=== PATIENT | male | born 1945 | race Caucasian/White ===

== ENCOUNTER 2021-04-29 09:47 | Inpatient (IN) | payer BC, MEDICARE ==
[~2021-04-29] VITALS: Ht 172.7 cm; Wt 170.1 kg
[2021-04-29] MEDS ORDERED: DEXAMETHASONE SOD PHOSPHATE 4 MG INJ IV ONE (10:30)
[2021-04-29 10:38] LABS: CARBON DIOXIDE 28 mmol/L (21-32); CHLORIDE 100 mmol/L (98-107); CREATININE 1.7 mg/dL (0.6-1.3); GLUCOSE 89 mg/dL (74-106); POTASSIUM 3.3 mmol/L (3.5-5.1); UREA NITROGEN, BLOOD 42 mg/dL (7-18)
[2021-04-29] MEDS ORDERED: DEXAMETHASONE SOD PHOSPHATE 10 MG INJ ONE (10:40)
[2021-04-29 10:44] LABS: ALANINE AMINOTRANSFERASE 38 U/L (16-63); ALKALINE PHOSPHATASE 57 U/L (50-136); ASPARTATE AMINOTRANSFERASE 42 U/L (15-37); BILIRUBIN,DIRECT 0.3 mg/dL (0.0-0.2); BILIRUBIN,TOTAL 0.6 mg/dL (0.2-1.0); HEMATOCRIT 34.2 % (36.7-47.1); MEAN CORPUSCULAR HEMOGLOBIN 29.1 uug (23.8-33.4); MEAN CORPUSCULAR VOLUME 86.8 fL (73.0-96.2); PLATELET COUNT (AUTO) 176 K/uL (152-348); TOTAL PROTEIN, SERUM 7.8 g/dL (6.4-8.2)
--- NOTE | 2021-04-29 11:00 | NUR ---
First contact with patient. Received pt in [facility] in room 5A, pt on room air with O2 sat 84%, placed on O2 4L via N/C with O2 sat up to 98%, BP 115/63, HR 61 (SR), RR 25.
--- NOTE | 2021-04-29 13:00 | NUR ---
Per pt to be admitted to [facility], no beds available. Pt repositioned in [facility] for comfort, remains on O2 4L via NC. No acute distress noted at this time.
--- NOTE | 2021-04-29 13:30 | NUR ---
Pt sitting in gurney and eating lunch, NAD noted at this time.
--- NOTE | 2021-04-29 17:30 | NUR ---
Pt eating dinner, NAD noted at this time.
--- NOTE | 2021-04-29 19:00 | NUR ---
Hands off report given to JOHN Baum.
[2021-04-29] MEDS ORDERED: CEFTRIAXONE 1 G in IV DEXTROSE 5% 50 ML IV SCH (19:45)
[2021-04-29] MEDS ORDERED: AZITHROMYCIN 250 MG TABLET PO ONE (19:45)
--- NOTE | 2021-04-29 20:08 | NUR ---
Called pharmacy for remdesivir, stated they need to get approval before brinign to ER
[2021-04-29] MEDS ORDERED: CEFTRIAXONE /D5W 50ML IVPB **ER PYXIS IV ONE (20:12)
[2021-04-29] MEDS ORDERED: TEMAZEPAM 15 MG CAPSULE PO PRN (21:15)
[2021-04-29] MEDS ORDERED: ONDANSETRON 4 MG/2 ML VIAL IV PRN (21:15)
[2021-04-29] MEDS ORDERED: ACETAMINOPHEN 325 MG TABLET PO PRN (21:15)
[2021-04-29] MEDS ORDERED: HYDROCODONE/APAP 5-325MG TABLET PO PRN (21:15)
[2021-04-29] MEDS ORDERED: ALBUTEROL SULFATE 8 GM HFA.AER.AD IH PRN (21:15)
--- NOTE | 2021-04-29 23:15 | NUR ---
pt placed in hospital bed, resting in bed, no distress noted
--- NOTE | 2021-04-30 01:53 | NUR ---
Pt sitting on side of the bed, no distress noted
--- NOTE | 2021-04-30 04:01 | NUR ---
pt refusing bp at this time
[2021-04-30 06:24] LABS: HEMATOCRIT 34.3 % (36.7-47.1); MEAN CORPUSCULAR HEMOGLOBIN 29.1 uug (23.8-33.4); MEAN CORPUSCULAR VOLUME 86.8 fL (73.0-96.2); PLATELET COUNT (AUTO) 178 K/uL (152-348)
[2021-04-30] MEDS ORDERED: LIOT25TA13 PO (06:38)
[2021-04-30] MEDS ORDERED: LEVO25TA2 PO (06:38)
[2021-04-30] MEDS: PANTOPRAZOLE SODIUM 40 MG TABLET.DR PO SCH (06:39)
[2021-04-30] MEDS ORDERED: PANTOPRAZOLE SODIUM 40 MG TABLET.DR PO ONE (06:46)
[2021-04-30 07:33] LABS: BILIRUBIN,TOTAL 0.6 mg/dL (0.2-1.0); CREATININE 1.3 mg/dL (0.6-1.3); MAGNESIUM 2.3 mg/dL (1.8-2.4); PHOSPHOROUS 4.2 mg/dL (2.5-4.9); POTASSIUM 3.1 mmol/L (3.5-5.1); TOTAL PROTEIN, SERUM 7.9 g/dL (6.4-8.2)
--- NOTE | 2021-04-30 07:40 | NUR ---
PATIENT IS AWAKE AND ALERT. JUSTIN AND I MOVED HIM UP IN BED AND PLACED A CLEAN WATERPROOF PAD UNDER HIM. HE IS ON OXYGEN VIA N/C AT 4L WHICH PATIENT STATES HE HAS HAD HOME (O2).
[2021-04-30] MEDS ORDERED: POTASSIUM CHLORIDE 20 MEQ TAB.PRT.SR PO ONE (08:45)
[2021-04-30] MEDS ORDERED: DEXAMETHASONE 5 MG/5 ML LIQUID UDC PO SCH (09:00)
[2021-04-30] MEDS ORDERED: CEFTRIAXONE 2 G in IV DEXTROSE 5% 100 ML IV SCH (09:00)
[2021-04-30] MEDS: DEXAMETHASONE 4 MG TABLET PO SCH (09:06)
[2021-04-30] MEDS: ENOXAPARIN SODIUM 40 MG/0.4 ML DISP.SYRIN SQ SCH (09:07)
[2021-04-30] MEDS ORDERED: ENOXAPARIN SODIUM 40 MG/0.4 ML DISP.SYRIN SQ ONE (09:08)
[2021-04-30] MEDS ORDERED: POTASSIUM CHLORIDE 20 MEQ TAB.PRT.SR ONE (09:08)
[2021-04-30] MEDS ORDERED: DEXAMETHASONE 4 MG TABLET ONE (09:08)
--- NOTE | 2021-04-30 09:33 | NUR ---
We changed patient's sheets and he is stting up eating breakfast with no complaints. I asked him to give us a list of his medications and he said "[facility] has my medication list, Ivett asked them to send it".
[2021-04-30] MEDS ORDERED: CEFTRIAXONE /D5W 50ML IVPB **ER PYXIS IV ONE (10:29)
[2021-04-30] MEDS ORDERED: CEFTRIAXONE 1 G VIAL ONE (10:30)
[2021-04-30] MEDS ORDERED: REMDESIVIR (CHARGED) 200 MG in IV NORMAL SALINE 210 ML IV ONE (11:00)
--- NOTE | 2021-04-30 11:00 | NUR ---
Rocephin IV completed in one hour at 1100
--- NOTE | 2021-04-30 11:30 | NUR ---
Patient states he consents to receive Remdesivir and has read the info sheet I gave him from Pharmacy.
[2021-04-30] MEDS ORDERED: CALC0.253 PO (11:44)
[2021-04-30] MEDS ORDERED: CARV12.5 PO (11:44)
[2021-04-30] MEDS ORDERED: COLC0.6C3 PO (11:45)
[2021-04-30] MEDS ORDERED: FURO-151 PO (11:45)
[2021-04-30] MEDS ORDERED: GABA300C PO (11:46)
[2021-04-30] MEDS ORDERED: GLIM2TAB31 PO (11:46)
[2021-04-30] MEDS ORDERED: LEVO200T9 PO (11:47)
[2021-04-30] MEDS ORDERED: LIOT25TA7 PO (11:47)
[2021-04-30] MEDS ORDERED: METF-495 PO (11:48)
[2021-04-30] MEDS ORDERED: LISI40TA13 PO (11:48)
[2021-04-30] MEDS ORDERED: NIFE-35 PO (11:50)
[2021-04-30] MEDS ORDERED: SIMV-46 PO (11:50)
--- NOTE | 2021-04-30 11:51 | NUR ---
I received his med list from [facility] and entered each one. i will now notifiy Dr Mcdaniel to order them for his stay
--- NOTE | 2021-04-30 12:27 | NUR ---
Patient is sitting up eating lunch
--- NOTE | 2021-04-30 13:11 | NUR ---
Remdesevir is completed. VSS
[2021-04-30] MEDS ORDERED: METF-442 PO (15:42)
--- NOTE | 2021-04-30 15:50 | NUR ---
Patient is sitting up eating and drinking juice with no complaints. He had a BM and urianted with no issues. He is coughing intermittently. He states he "feels much better than yesterday"
--- NOTE | 2021-04-30 18:36 | NUR ---
Patient is sitting up eating dinner. He is aware of pending admission
--- NOTE | 2021-04-30 19:05 | NUR ---
Thorough and complete report recieved from HARRY Peraza using SBAR method. Pt is all set to be transfered upstairs to room 318. Pt is stable and doing well VSS, pt is independent, follows commands and answers question, AAOx4, pt is currently sitting up on gurney and awaiting transport. 3rd floor called to give report however, nurse was already taking report for another admission, hence Ashley told me to hold the pt until they verify if the room has been cleaned. She said she will call me when they are ready to accept report. Pt shows no s/sx of distress. Pt denies any pain, sob, dizziness, n/v or discomfort.
--- NOTE | 2021-04-30 19:30 | NUR ---
Hand off report given to Bisi LOPEZ
[2021-04-30] MEDS ORDERED: AZITHROMYCIN 250 MG TABLET PO ONE (19:45)
--- NOTE | 2021-04-30 20:14 | NUR ---
Ashley called and said that room with being cleaned now and that she will call me when it is ready for the pt. Pt given one cup of ice water per request. VSS, 100% RA
--- NOTE | 2021-04-30 21:00 | NUR ---
RECEIVED REPORT FROM LAURYN CAMPBELL RN.
--- NOTE | 2021-04-30 21:25 | NUR ---
Report given to returned telephone equipment appraiser using SBAR method. Pt is doing well, VSS, pt was able to get up and walked a few steps to the wc. Pt can kimani wt on legs but has some difficulty walking and moves really slowly. BG checked just before transport to rm 318. B, no coverage needed. vial of Humalin R given to returned telephone equipment appraiser and told about difficulty ambulating.
--- NOTE | 2021-04-30 21:30 | NUR ---
Received patient via wheelchair. Admitted to room 318-telemetry with diagnosis of COVID. Under care of Dr. Mcdaniel. Patient is awake, alert and oriented x4, appears to be unkempt. Patient is ambulatory with assistance, states he uses a walker at home. Established nurse-patient rapport. Oriented patient to room, bed and call light button. On tele monitor, showing sinus rhythm. On 4L O2 saturating at 97%. Patient denies SOB, chest pain or dizziness. Skin issues noted and place in chart. Wound care consult ordered. Safety measures initiated. Will continue to monitor.
[2021-04-30 22:00] VITALS: BP 122/54
[2021-05-01] VITALS: BP 126/64
[2021-05-01 05:30] VITALS: BP 122/62
[2021-05-01] MEDS: PANTOPRAZOLE SODIUM 40 MG TABLET.DR PO SCH (06:06)
--- NOTE | 2021-05-01 06:16 | NUR ---
Patient slept intermittently through the night. Complained of not being able to sleep, non-pharmacological interventions were recommended to patient, however, patient requested for sleeping medication. Temazepam was given as ordered, insomnia resolved. On telemonitor, showing sinus rhythm with episodes of 1st degree block. on 4L O2 via NC, saturating at 98%. Complaint with medications. All needs were attended to and met. Will endorse to day shift.
[2021-05-01 06:40] LABS: HEMATOCRIT 34.6 % (36.7-47.1); MEAN CORPUSCULAR HEMOGLOBIN 28.7 uug (23.8-33.4); MEAN CORPUSCULAR VOLUME 86.2 fL (73.0-96.2); PLATELET COUNT (AUTO) 204 K/uL (152-348)
[2021-05-01 06:58] LABS: BILIRUBIN,DIRECT 0.3 mg/dL (0.0-0.2); BILIRUBIN,TOTAL 0.4 mg/dL (0.2-1.0); CREATININE 1.2 mg/dL (0.6-1.3); POTASSIUM 3.7 mmol/L (3.5-5.1); TOTAL PROTEIN, SERUM 7.8 g/dL (6.4-8.2)
[2021-05-01] MEDS: DEXAMETHASONE 4 MG TABLET PO SCH (08:56)
[2021-05-01] MEDS: ENOXAPARIN SODIUM 40 MG/0.4 ML DISP.SYRIN SQ SCH (08:58)
[2021-05-01 09:00] VITALS: BP 117/56
[2021-05-01] MEDS: REMDESIVIR (CHARGED) 100 MG in IV NORMAL SALINE 100 ML IV SCH (11:10)
[2021-05-01 12:00] VITALS: BP 126/59
--- NOTE | 2021-05-01 14:17 | NUR ---
Pt is a/o x 4, ambulatory with assist and walker to chair and bathroom. Pt was on 4L NC but removed, saturates 94% on room air at rest and educated to use oxygen when feeling exacerbated. Pt has had 2 BMs, uses urinal at bedside. Comfort measures provided, call light within reach, will continue to monitor.
[2021-05-01 16:00] VITALS: BP 132/41
--- NOTE | 2021-05-02 05:54 | NUR ---
Slept intermittently. Able to make needs known. Denies discomfort at this time. Denies SOB. Titrated to 3L. Pt not always compliant with nasal cannula, educated on importance of oxygen. IV site intact. No other issues or concerns at this time.
[2021-05-02] MEDS: PANTOPRAZOLE SODIUM 40 MG TABLET.DR PO SCH (06:34)
[2021-05-02 08:43] LABS: HEMATOCRIT 36.5 % (36.7-47.1); MEAN CORPUSCULAR HEMOGLOBIN 28.4 uug (23.8-33.4); MEAN CORPUSCULAR VOLUME 87.2 fL (73.0-96.2); PLATELET COUNT (AUTO) 256 K/uL (152-348)
[2021-05-02 09:25] LABS: BILIRUBIN,DIRECT 0.2 mg/dL (0.0-0.2); BILIRUBIN,TOTAL 0.5 mg/dL (0.2-1.0); CREATININE 1.2 mg/dL (0.6-1.3); MAGNESIUM 2.9 mg/dL (1.8-2.4); PHOSPHOROUS 3.7 mg/dL (2.5-4.9); POTASSIUM 4.2 mmol/L (3.5-5.1); TOTAL PROTEIN, SERUM 8.2 g/dL (6.4-8.2)
[2021-05-02 09:33] LABS: THYROID STIMULATING HORMONE 0.72 mIU/mL (0.358-3.740)
--- NOTE | 2021-05-02 09:46 | NUR ---
WOUND CARE CONSULT: REVIEWED CHART, NURSING DOCUMENTATION AND PHOTOS WHICH INDICATE SOME SKIN DISCOLORATION/LESIONS AND REDNESS/RASH TO ABDOMINAL/GROIN FOLDS, PRESENT ON ADMISSION. RECOMMENDATIONS MADE FOR SKIN PROTECTION. DISCUSSED WITH NURSING STAFF.MD IN AGREEMENT WITH PLAN OF CARE.
[2021-05-02] MEDS: DEXAMETHASONE 4 MG TABLET PO SCH (10:09)
[2021-05-02] MEDS: ENOXAPARIN SODIUM 40 MG/0.4 ML DISP.SYRIN SQ SCH (10:10)
[2021-05-02] MEDS: ENSURE ENLIVE (VAN) 240 ML LIQUID PO SCH (10:10)
[2021-05-02] MEDS: REMDESIVIR (CHARGED) 100 MG in IV NORMAL SALINE 100 ML IV SCH (11:08)
--- NOTE | 2021-05-02 11:15 | NUR ---
Patient is alert, oriented x 4, not in any form of distress. he is ambulatory with walker with assist to the chair and bedside commode. He denies any pain or discomfort. Titrated oxygen to 1LPM via NC and patient tolerated well O2 sat 96%, no complain of dyspnea or any discomfort. Assisted with his needs. Call light and frequently used items placed within patient's reach.
[2021-05-02 11:51] VITALS: BP 98/53
[2021-05-02] MEDS: CLOTRIMAZOLE 1% CREAM 30 GM TUBE TOP SCH (16:08)
[2021-05-02 16:51] VITALS: BP 133/68
[2021-05-02] MEDS: Z GUARD REMEDY PASTE 57 GM TUBE TOP SCH (18:09)
[2021-05-02] MEDS ORDERED: IV D5W 1000ML 1,000 ML IV ONE (19:30)
[2021-05-02 20:55] VITALS: BP 129/56
[2021-05-03 04:00] VITALS: BP 135/54
[2021-05-03] MEDS: PANTOPRAZOLE SODIUM 40 MG TABLET.DR PO SCH (06:18)
--- NOTE | 2021-05-03 06:55 | NUR ---
Slept throughout the night. Denies pain or SOB. Titrated to RA, tolerating well. No s/s of distress.
[2021-05-03 07:34] LABS: HEMATOCRIT 33.2 % (36.7-47.1); MEAN CORPUSCULAR HEMOGLOBIN 29.1 uug (23.8-33.4); MEAN CORPUSCULAR VOLUME 86.8 fL (73.0-96.2); PLATELET COUNT (AUTO) 211 K/uL (152-348)
[2021-05-03 07:59] LABS: BILIRUBIN,DIRECT 0.2 mg/dL (0.0-0.2); BILIRUBIN,TOTAL 0.4 mg/dL (0.2-1.0); CREATININE 1.3 mg/dL (0.6-1.3); POTASSIUM 4.1 mmol/L (3.5-5.1); TOTAL PROTEIN, SERUM 7.4 g/dL (6.4-8.2)
[2021-05-03] MEDS: DEXAMETHASONE 4 MG TABLET PO SCH (08:15)
[2021-05-03] MEDS: ENSURE ENLIVE (VAN) 240 ML LIQUID PO SCH (08:16)
[2021-05-03] MEDS: CLOTRIMAZOLE 1% CREAM 30 GM TUBE TOP SCH (08:16)
[2021-05-03] MEDS: Z GUARD REMEDY PASTE 57 GM TUBE TOP SCH (08:18)
[2021-05-03] MEDS: ENOXAPARIN SODIUM 40 MG/0.4 ML DISP.SYRIN SQ SCH (09:30)
[2021-05-03] MEDS ORDERED: COLCHICINE 0.6 MG TABLET PO PRN (10:00)
[2021-05-03] MEDS ORDERED: Medication Not On Formulary EA (Colchicine 0.6 MG) PO SCH (10:00)
[2021-05-03] MEDS ORDERED: ACET325T53 PO (11:11)
[2021-05-03] MEDS ORDERED: MULT-594 PO (11:11)
[2021-05-03] MEDS ORDERED: GLIM2TAB31 PO (11:11)
[2021-05-03] MEDS ORDERED: GABA300C PO (11:11)
[2021-05-03] MEDS: REMDESIVIR (CHARGED) 100 MG in IV NORMAL SALINE 100 ML IV SCH (11:11)
[2021-05-03] MEDS ORDERED: CARV3.12 PO (11:11)
[2021-05-03] MEDS ORDERED: SIMV10TA98 PO (11:11)
[2021-05-03] MEDS ORDERED: LISI10TA29 PO (11:11)
[2021-05-03] MEDS ORDERED: FAMO-132 PO (11:11)
[2021-05-03] MEDS ORDERED: FURO-151 PO (11:11)
[2021-05-03] MEDS ORDERED: METH4TAB3 PO (11:11)
[2021-05-03] MEDS ORDERED: ALBU8.5H8 INH (11:11)
[2021-05-03] MEDS ORDERED: ASPI-618 PO (11:12)
[2021-05-03 11:37] VITALS: BP 119/68
--- NOTE | 2021-05-03 16:06 | NUR ---
Patient discharged to home. Patient AOx4. On room air. No signs of acute distress. Patient denied pain/ discomfort. Patient denied SOB/ . Patient insisted on being discharged today despite informing him case management are working on transportation. Spoke with the patient the risks of going home in his wheelchair and patient verbalized understanding and insisted on going home. Dr. Allen informed. Discharge instructions given to the patient and patient verbalized understanding. Belongings accounted for. IV access removed. ID armband removed. Patient left hospital using own electric wheelchair, assisted by KAREL Hua.
[2021-05-03] MEDS ORDERED: GLIMEPIRIDE 2 MG TABLET PO SCH (17:00)
[2021-05-03] MEDS ORDERED: SIMVASTATIN 20 MG TABLET PO SCH (21:00)
[2021-05-04] MEDS ORDERED: LIOTHYRONINE SODIUM 25 MCG TABLET PO SCH (07:00)
[2021-05-04] MEDS ORDERED: LEVOTHYROXINE SODIUM 200 MCG TABLET PO SCH (07:00)
[2021-05-04] MEDS ORDERED: CALCITRIOL 0.25 MCG CAPSULE PO SCH (09:00)
[2021-05-04] MEDS ORDERED: GABAPENTIN 300 MG CAPSULE PO SCH (09:00)
[2021-05-04] MEDS ORDERED: NIFEdipine XL 30 MG TABSR PO SCH (09:00)
== END 2021-05-03 15:55 | disposition home or self-care (01) | DRG 177 ==
LOC: ER 09:47 → TRANSITION 21:38 → TELE-TD3 04-30 17:42 → TELE3 04-30 20:40 → MEDSURG3 05-02 11:30
PROVIDERS: ADMIT Internal Medicine; ATTEND Internal Medicine
PROC: XW033E5 Introduction of Remdesivir Anti-infective into Peripheral Vein, Percutaneous Approach, New Technology Group 5 (ICD-10-PCS; principal; 2021-04-30)
DX: U07.1 COVID-19 (principal); J12.82 Pneumonia due to coronavirus disease 2019; J96.01 Acute respiratory failure with hypoxia; I50.33 Acute on chronic diastolic (congestive) heart failure; N17.0 Acute kidney failure with tubular necrosis; J15.9 Unspecified bacterial pneumonia; Z68.43 Body mass index [BMI] 50.0-59.9, adult; D68.69 Other thrombophilia; E87.0 Hyperosmolality and hypernatremia; E66.01 Morbid (severe) obesity due to excess calories; D64.9 Anemia, unspecified; I11.0 Hypertensive heart disease with heart failure; I25.10 Atherosclerotic heart disease of native coronary artery without angina pectoris; M17.12 Unilateral primary osteoarthritis, left knee; Z79.4 Long term (current) use of insulin; Z90.49 Acquired absence of other specified parts of digestive tract; E11.9 Type 2 diabetes mellitus without complications; E87.6 Hypokalemia; R53.1 Weakness; Z74.09 Other reduced mobility; E03.9 Hypothyroidism, unspecified; Z79.84 Long term (current) use of oral hypoglycemic drugs; E86.1 Hypovolemia
CPT/HCPCS: 36415; 70030-TC; 71045; 83605; 83615; 83735; 84100; 84443; 85025; 85610; 85730; 86140; 86803; 87040; 87806; 93005; A4663; A6209; G0378; J0696; J1100; J1650; J3490; J3535; J7040; J7050; J7060; J7070; J8499; J8540; Q0144; U0003

== ENCOUNTER 2022-06-09 18:48 | Inpatient (IN) | payer BC, MEDICARE ==
[~2022-06-09] VITALS: Ht 172.7 cm; Wt 171.6 kg
[~2022-06-09 18:48] MED LIST: ACET325T53 PO; ALBU8.5H8 INH; ASPI-618 PO; BLOOD SUGAR DIAGNOSTIC 1 EACH STRIP VI SCH; CALC0.253 PO; CARV3.12 PO; FAMO-132 PO; FURO-151 PO; GABA300C PO; GLIM2TAB31 PO; LEVO200T9 PO; LIOT25TA7 PO; LISI10TA29 PO; METH4TAB3 PO; MULT-594 PO; NIFE-35 PO; SIMV10TA98 PO
[2022-06-09] MEDS ORDERED: ACETAMINOPHEN ES 500 MG TABLET PO ONE (19:15)
[2022-06-09] MEDS ORDERED: NITROGLYCERIN OINT 1 GM PACKET TP ONE ×2 (19:15→19:41)
[2022-06-09] MEDS ORDERED: levoFLOXacin 750 MG/D5W 150 ML PIGGYBACK IV ONE (19:30)
[2022-06-09] MEDS ORDERED: APIX5TAB PO (19:32)
[2022-06-09] MEDS ORDERED: GLIM2TAB31 PO (19:32)
[2022-06-09] MEDS ORDERED: METF-442 PO (19:32)
[2022-06-09 19:38] LABS: HEMATOCRIT 32.9 % (36.7-47.1); MEAN CORPUSCULAR HEMOGLOBIN 24.4 uug (23.8-33.4); PLATELET COUNT (AUTO) 140 K/uL (152-348)
[2022-06-09] MEDS ORDERED: ACETAMINOPHEN ES 500 MG TABLET ONE (19:40)
[2022-06-09] MEDS ORDERED: levoFLOXacin 750MG/D5W 150 ML IV ONE (19:41)
[2022-06-09 19:49] LABS: CARBON DIOXIDE 28 mmol/L (21-32); CHLORIDE 102 mmol/L (98-107); CREATININE 1.2 mg/dL (0.6-1.3); GLUCOSE 153 mg/dL (74-106); POTASSIUM 4.5 mmol/L (3.5-5.1); UREA NITROGEN, BLOOD 20 mg/dL (7-18)
[2022-06-09 20:02] LABS: ALANINE AMINOTRANSFERASE 19 U/L (16-63); ALKALINE PHOSPHATASE 66 U/L (50-136); ASPARTATE AMINOTRANSFERASE 12 U/L (15-37); BILIRUBIN,DIRECT 0.2 mg/dL (0.0-0.2); BILIRUBIN,TOTAL 0.7 mg/dL (0.2-1.0); TOTAL PROTEIN, SERUM 7.7 g/dL (6.4-8.2)
--- NOTE | 2022-06-09 22:13 | NUR ---
Called [facility] for panel call. MIKE Platt staffing operations manager.
[2022-06-09] MEDS ORDERED: ASPIRIN 81 MG TAB.CHEW PO ONE (22:15)
[2022-06-09] MEDS ORDERED: IV NORMAL SALINE 500 ML BAG IV ONE (22:15)
[2022-06-09] MEDS ORDERED: ASPIRIN 81 MG TAB.CHEW ONE (22:21)
[2022-06-09] MEDS ORDERED: MORPHINE SULFATE 2 MG/1 ML DISP.SYRIN IVP PRN (22:30)
[2022-06-09] MEDS ORDERED: DEXTROSE 50% 50 ML DISP.SYRIN IV PRN (22:30)
[2022-06-09] MEDS ORDERED: ONDANSETRON 4 MG/2 ML VIAL IV PRN (22:30)
[2022-06-09] MEDS ORDERED: hydrALAZINE HCL 20 MG/1 ML VIAL IV PRN (22:30)
[2022-06-09] MEDS ORDERED: ALBUTEROL SULFATE 8 GM HFA.AER.AD IH PRN (22:30)
--- NOTE | 2022-06-09 22:47 | NUR ---
Called 3rd floor for bed number stated they would call back.
--- NOTE | 2022-06-09 23:00 | NUR ---
3rd floor called and spoke to Ashley and recieved room #301-A.
--- NOTE | 2022-06-09 23:20 | NUR ---
Called third floor and gave report to Diana LOPEZ.
--- NOTE | 2022-06-09 23:45 | NUR ---
Transferred patient to thrid floor via transfer.
[2022-06-10] VITALS: BP 121/47
--- NOTE | 2022-06-10 | NUR ---
Admitted a 76 years old male with Dx of PNA. Patient AAOx4. SR with first degree AV block on tele with HR of 86/min. IV site on left AC intact and patent. Denies any pain. On O2 at 2LPM via NC in place. O2 sat at 97% upon admission. SOB with exertion noted. Morbidly obese. Routine admission care done. Plan of care initiated. Safety measure initiated and call light within reached. Continue to monitor.
--- NOTE | 2022-06-10 00:20 | NUR ---
Oswald munguia in ED - 06/10/22 at 0021 by GUICHO Patient discharged to home in stable condition. Written and verbal after care instructions given. Patient verbalizes understanding of instructions. Stressed follow up or return to ER for worsening s/s.
[2022-06-10] MEDS ORDERED: ALBUTEROL SULFATE 2.5 MG/3 ML NEBU NEB PRN ×2 (01:00→07:45)
--- NOTE | 2022-06-10 01:10 | NUR ---
Patient requesting CPAP, stated he uses CIPAP at home. Informed [employer] Aidee and obtained order for CPAP. Informed RT and will apply CPAP.
[2022-06-10] MEDS ORDERED: CEFEPIME HCL 1 G VIAL ONE (01:27)
[2022-06-10] MEDS: CEFEPIME HCL 1 G in IV DEXTROSE 5% 50 ML IV SCH ×4 (01:44→23:14)
--- NOTE | 2022-06-10 01:57 | NUR ---
Patient removed CPAP, stated that it's not fitting right, not like what he has at home. Informed patient that he can have family member bring his own CIPAP. Placed back on O2 at 2LPM via NC. In no acute distress.
[2022-06-10 04:00] VITALS: BP 104/48
[2022-06-10] MEDS: ACETAMINOPHEN 325 MG TABLET PO PRN ×2 (04:50→15:24)
[2022-06-10] MEDS: LEVOTHYROXINE SODIUM 200 MCG TABLET PO SCH (06:09)
[2022-06-10] MEDS: LIOTHYRONINE SODIUM 25 MCG TABLET PO SCH (06:16)
[2022-06-10] MEDS: BLOOD SUGAR DIAGNOSTIC 1 EACH STRIP VI SCH ×4 (06:30→21:04)
--- NOTE | 2022-06-10 06:39 | NUR ---
NO adverse effect noted from IV antibiotic. SR with 1st degree AVB on tele with Hr of 88/min. IV site on left AC remains intact and patent. O2 at 2LPM via NC in place. O2 sat at 94%. Tylenol 650mg PO and cooling measure provided for temp 100.8 orally. Latest temp 99.2 orally. Needs attended to and met. Safety measure maintained and call light within reached.
[2022-06-10 06:59] LABS: HEMATOCRIT 28.9 % (36.7-47.1); MEAN CORPUSCULAR HEMOGLOBIN 24.3 uug (23.8-33.4); MEAN CORPUSCULAR VOLUME 77.8 fL (73.0-96.2); PLATELET COUNT (AUTO) 124 K/uL (152-348)
[2022-06-10 07:22] LABS: BILIRUBIN,TOTAL 0.9 mg/dL (0.2-1.0); CREATININE 1.3 mg/dL (0.6-1.3); PHOSPHOROUS 3.2 mg/dL (2.5-4.9); POTASSIUM 3.9 mmol/L (3.5-5.1); TOTAL PROTEIN, SERUM 6.8 g/dL (6.4-8.2)
[2022-06-10] MEDS ORDERED: LISINOPRIL 10 MG TABLET PO SCH (09:00)
[2022-06-10] MEDS: GABAPENTIN 300 MG CAPSULE PO SCH ×2 (09:29→20:48)
[2022-06-10] MEDS: DOCUSATE SODIUM 100 MG CAPSULE PO SCH ×2 (09:29→17:22)
[2022-06-10] MEDS: FUROSEMIDE 40 MG TABLET PO SCH (09:29)
[2022-06-10] MEDS: ASPIRIN EC 81 MG TABLET.DR PO SCH (09:34)
[2022-06-10] MEDS: FLUTICASONE/VILANTEROL 1 EACH BLST.W.DEV INH SCH (09:35)
[2022-06-10] MEDS: CARVEDILOL 3.125 MG TABLET PO SCH ×2 (09:35→21:01)
[2022-06-10] MEDS: CALCITRIOL 0.25 MCG CAPSULE PO SCH (09:36)
--- NOTE | 2022-06-10 10:57 | NUR ---
WOUND CARE CONSULT: PT PRESENTS WITH LEFT LOWER LEG SKIN TEAR, PRESENT ON ADMISSION. DR FRANZ CALLED FOR DPM CONSULT. DISCUSSED SKIN PROTECTION WITH NURSING STAFF. PT IS ABLE TO TURN AND REPOSITION IN BED AND HE DENIES NEED FOR BARIATRIC BED. PT IS CONTINENT AT THIS TIME. MD IN AGREEMENT WITH PLAN OF CARE.
[2022-06-10 11:33] VITALS: BP 103/48
[2022-06-10] MEDS: APIXABAN 5 MG TABLET PO SCH ×2 (11:41→21:08)
[2022-06-10] MEDS: INSULIN REGULAR, HUMAN 300 UNIT/3 ML VIAL SQ PRN ×2 (12:32→21:03)
--- NOTE | 2022-06-10 14:00 | NUR ---
Cefepime 1 gram unable to administer at this time no IV line present, unable to insert peripheral line; attempted x 2. Will notify warehouser for midline insertion.
--- NOTE | 2022-06-10 15:46 | NUR ---
Patient temperature 100.0 tylenol given. Urine specimen collected as per order and sent to lab.
[2022-06-10 15:59] VITALS: BP 120/58
--- NOTE | 2022-06-10 16:50 | NUR ---
1400 dose of Cefepime 1 gram given at this time via right upper arm midline as per pharmacy recommendation.
--- NOTE | 2022-06-10 17:33 | NUR ---
Temperature at this time 99.2.
[2022-06-10 18:35] LABS: *BILIRUBIN,URIN NEGATIVE (NEGATIVE); *BLOOD, URINE NEGATIVE (NEGATIVE); *CLARITY,URINE CLEAR (CLEAR); *COLOR,URINE YELLOW (YELLOW); *KETONES,URINE TRACE (NEGATIVE); *UROBILINOGEN,URINE 0.2 E.U./dl (NORMAL); LEUKOCYTE ESTERASE ,URINE TRACE (NEGATIVE); NITRITE, URINE NEGATIVE (NEGATIVE); UGLUCOSE NEGATIVE (NEGATIVE)
[2022-06-10 18:53] LABS: *CREATININE,URINE 252.5 mg/dL (30-125); *URINE TOTAL PROTEIN RANDOM 38.8 mg/dL (<150/24HR)
[2022-06-10 20:00] VITALS: BP 117/55
[2022-06-10] MEDS: SIMVASTATIN 10 MG TABLET PO SCH (20:48)
[2022-06-10 21:03] LABS: BACTERIA,URINE FEW /HPF (NONE SEEN); MUCUS,URINE FEW /LPF (0-FEW); RBC,URINE 0-3 /HPF (0-3); SQUAMOUS EPITHELIAL CELL,UR FEW /HPF (NONE SEEN)
[2022-06-11] VITALS: BP 118/56
[2022-06-11 04:00] VITALS: BP 134/65
[2022-06-11] MEDS: CEFEPIME HCL 1 G in IV DEXTROSE 5% 50 ML IV SCH (06:31)
[2022-06-11] MEDS: LEVOTHYROXINE SODIUM 200 MCG TABLET PO SCH (06:31)
[2022-06-11] MEDS: LIOTHYRONINE SODIUM 25 MCG TABLET PO SCH (06:37)
[2022-06-11 06:39] LABS: MEAN CORPUSCULAR VOLUME 78.1 fL (73.0-96.2); PLATELET COUNT (AUTO) 126 K/uL (152-348)
[2022-06-11] MEDS: BLOOD SUGAR DIAGNOSTIC 1 EACH STRIP VI SCH ×4 (06:45→20:52)
[2022-06-11 06:51] LABS: ALANINE AMINOTRANSFERASE 14 U/L (16-63); ALKALINE PHOSPHATASE 55 U/L (50-136); ASPARTATE AMINOTRANSFERASE 9 U/L (15-37); BILIRUBIN,TOTAL 0.9 mg/dL (0.2-1.0); CARBON DIOXIDE 30 mmol/L (21-32); CHLORIDE 104 mmol/L (98-107); CREATINE KINASE, TOTAL 152 U/L (39-308); CREATININE 1.5 mg/dL (0.6-1.3); GLUCOSE 119 mg/dL (74-106); PHOSPHOROUS 3.8 mg/dL (2.5-4.9); POTASSIUM 3.8 mmol/L (3.5-5.1); UREA NITROGEN, BLOOD 22 mg/dL (7-18)
--- NOTE | 2022-06-11 07:07 | NUR ---
Patient slept well and remained stable the whole shift.
[2022-06-11] MEDS: FLUTICASONE/VILANTEROL 1 EACH BLST.W.DEV INH SCH (08:06)
[2022-06-11] MEDS: DOCUSATE SODIUM 100 MG CAPSULE PO SCH ×2 (08:06→16:07)
[2022-06-11] MEDS: FUROSEMIDE 40 MG TABLET PO SCH (08:06)
[2022-06-11] MEDS: GABAPENTIN 300 MG CAPSULE PO SCH ×2 (08:06→20:44)
[2022-06-11] MEDS: CARVEDILOL 3.125 MG TABLET PO SCH ×2 (08:07→20:45)
[2022-06-11] MEDS: APIXABAN 5 MG TABLET PO SCH ×2 (08:08→20:46)
[2022-06-11] MEDS: CALCITRIOL 0.25 MCG CAPSULE PO SCH (08:09)
[2022-06-11] MEDS: ASPIRIN EC 81 MG TABLET.DR PO SCH (08:15)
[2022-06-11 10:46] LABS: ABG PCO2 37.7 mmHg (35.0-45.0); ABG PO2 54.6 mmHg (75.0-100.0); ABG SITE RIGHT RADIAL; ABG TOTAL HEMOGLOBIN 10.1 G/dL (13.5-18.0); COHb 1.1 % (0.5-1.5); MetHb 0.3 % (0.0-1.5); O2Hb 87.1 % (94.0-97.0); VENT MODE CPAP
[2022-06-11 11:15] VITALS: BP 132/62
--- NOTE | 2022-06-11 11:16 | NUR ---
RT reported Blood gas result and PO2 is 54.6.RT placed the pt. on 3L NC oxygen. Notified Dr. Salazar.
[2022-06-11] MEDS: CEFEPIME HCL 2 G in IV DEXTROSE 5% 100 ML IV SCH (13:02)
[2022-06-11 14:56] LABS: *BILIRUBIN,URIN NEGATIVE (NEGATIVE); *BLOOD, URINE 3+ (NEGATIVE); *COLOR,URINE YELLOW (YELLOW); *KETONES,URINE NEGATIVE (NEGATIVE); *UROBILINOGEN,URINE 0.2 E.U./dl (NORMAL); LEUKOCYTE ESTERASE ,URINE 1+ (NEGATIVE); NITRITE, URINE NEGATIVE (NEGATIVE); PH,URINE 5.5 (5.0-8.0); UGLUCOSE NEGATIVE (NEGATIVE)
[2022-06-11 15:02] VITALS: BP 111/41
[2022-06-11 15:49] LABS: *CLARITY,URINE HAZY (CLEAR)
[2022-06-11 15:53] LABS: RBC,URINE 50-80 /HPF (0-3)
[2022-06-11 15:54] LABS: BACTERIA,URINE FEW /HPF (NONE SEEN); SQUAMOUS EPITHELIAL CELL,UR FEW /HPF (NONE SEEN)
[2022-06-11 15:55] LABS: COARSE GRANULAR CASTS,URINE FEW /LPF
[2022-06-11] MEDS: INSULIN REGULAR, HUMAN 300 UNIT/3 ML VIAL SQ PRN (16:17)
[2022-06-11 16:31] LABS: *CREATININE,URINE 122.2 mg/dL (30-125)
--- NOTE | 2022-06-11 16:38 | NUR ---
Pt. noted to be stable through out the shift. No c/o pain. Urine sample collected and sent to the lab. Compliance with the care given. All needs attended and met. Call light within reach. All safety measure applied. Will keep monitoring the patient.
[2022-06-11] MEDS: SIMVASTATIN 10 MG TABLET PO SCH (20:45)
[2022-06-12] MEDS: CEFEPIME HCL 2 G in IV DEXTROSE 5% 100 ML IV SCH ×2 (02:13→13:33)
[2022-06-12] MEDS: LIOTHYRONINE SODIUM 25 MCG TABLET PO SCH (06:04)
[2022-06-12] MEDS: LEVOTHYROXINE SODIUM 200 MCG TABLET PO SCH (06:04)
[2022-06-12] MEDS: BLOOD SUGAR DIAGNOSTIC 1 EACH STRIP VI SCH ×4 (06:35→21:31)
[2022-06-12] MEDS: INSULIN REGULAR, HUMAN 300 UNIT/3 ML VIAL SQ PRN ×3 (07:52→21:32)
[2022-06-12] MEDS: FUROSEMIDE 40 MG TABLET PO SCH (08:08)
[2022-06-12] MEDS: GABAPENTIN 300 MG CAPSULE PO SCH ×2 (08:08→21:34)
[2022-06-12] MEDS: ASPIRIN EC 81 MG TABLET.DR PO SCH (08:08)
[2022-06-12] MEDS: DOCUSATE SODIUM 100 MG CAPSULE PO SCH ×2 (08:08→16:02)
[2022-06-12] MEDS: FLUTICASONE/VILANTEROL 1 EACH BLST.W.DEV INH SCH (08:09)
[2022-06-12] MEDS: CARVEDILOL 3.125 MG TABLET PO SCH ×2 (08:09→21:30)
[2022-06-12] MEDS: APIXABAN 5 MG TABLET PO SCH ×2 (08:11→21:30)
[2022-06-12] MEDS: CALCITRIOL 0.25 MCG CAPSULE PO SCH (08:13)
[2022-06-12] MEDS ORDERED: FLUT1BLS INH (09:21)
[2022-06-12] MEDS ORDERED: EMPA25TA PO (09:21)
[2022-06-12] MEDS ORDERED: AMOX-430 PO (09:21)
[2022-06-12 11:14] VITALS: BP 136/69
[2022-06-12 12:06] LABS: A/G RATIO 0.8 (0.7-1.7); ALBUMIN 2.7 g/dL (2.9-4.4); ALPHA-1-GLOBULIN 0.5 g/dL (0.0-0.4); ALPHA-2-GLOBULIN 0.9 g/dL (0.4-1.0); BETA GLOBULIN 1.1 g/dL (0.7-1.3); GAMMA GLOBULIN 1.2 g/dL (0.4-1.8); GLOBULIN, TOTAL 3.6 g/dL (2.2-3.9); M-SPIKE Not Observed g/dL (Not Observed)
--- NOTE | 2022-06-12 16:09 | NUR ---
Pt. has been stable through out the shift. No c/o pain. No c/o SOB. Wound treatment done. All need attended and met. Compliance with the care given. Will keep monitoring the patient.
[2022-06-12 16:35] VITALS: BP 158/84
[2022-06-12 20:00] VITALS: BP 126/78
[2022-06-12] MEDS: ACETAMINOPHEN 325 MG TABLET PO PRN (21:29)
[2022-06-12] MEDS: SIMVASTATIN 10 MG TABLET PO SCH (21:30)
[2022-06-13] VITALS: BP 133/55
[2022-06-13] MEDS: CEFEPIME HCL 2 G in IV DEXTROSE 5% 100 ML IV SCH ×2 (01:22→13:07)
[2022-06-13 04:00] VITALS: BP 134/59
[2022-06-13] MEDS: LIOTHYRONINE SODIUM 25 MCG TABLET PO SCH (06:13)
[2022-06-13] MEDS: LEVOTHYROXINE SODIUM 200 MCG TABLET PO SCH (06:13)
[2022-06-13] MEDS: BLOOD SUGAR DIAGNOSTIC 1 EACH STRIP VI SCH ×3 (06:41→16:49)
--- NOTE | 2022-06-13 06:44 | NUR ---
patient in bed slept well. patient is on cpap. mykel well. no sob or resp distress noted. v/s wnl. iv ATB given and no adverse reaction noted. ERICA midline intact and patent.patient repositioned as needed.all needs met and attended. will endorse to day shift.
[2022-06-13 06:55] LABS: HEMATOCRIT 27.8 % (36.7-47.1); MEAN CORPUSCULAR HEMOGLOBIN 25.1 uug (23.8-33.4); MEAN CORPUSCULAR VOLUME 78.1 fL (73.0-96.2); PLATELET COUNT (AUTO) 162 K/uL (152-348)
[2022-06-13 07:21] LABS: ALANINE AMINOTRANSFERASE 31 U/L (16-63); ALKALINE PHOSPHATASE 65 U/L (50-136); ASPARTATE AMINOTRANSFERASE 25 U/L (15-37); BILIRUBIN,TOTAL 1.2 mg/dL (0.2-1.0); CARBON DIOXIDE 29 mmol/L (21-32); CHLORIDE 108 mmol/L (98-107); CREATININE 1.3 mg/dL (0.6-1.3); GLUCOSE 136 mg/dL (74-106); MAGNESIUM 2.2 mg/dL (1.8-2.4); PHOSPHOROUS 3.9 mg/dL (2.5-4.9); POTASSIUM 3.7 mmol/L (3.5-5.1); TOTAL PROTEIN, SERUM 7.4 g/dL (6.4-8.2); UREA NITROGEN, BLOOD 22 mg/dL (7-18)
[2022-06-13] MEDS: DOCUSATE SODIUM 100 MG CAPSULE PO SCH ×2 (08:22→16:51)
[2022-06-13] MEDS: FUROSEMIDE 40 MG TABLET PO SCH (08:22)
[2022-06-13] MEDS: ASPIRIN EC 81 MG TABLET.DR PO SCH (08:22)
[2022-06-13] MEDS: APIXABAN 5 MG TABLET PO SCH (08:23)
[2022-06-13] MEDS: GABAPENTIN 300 MG CAPSULE PO SCH (08:23)
[2022-06-13 08:25] VITALS: BP 139/62
[2022-06-13] MEDS: CARVEDILOL 3.125 MG TABLET PO SCH (08:25)
[2022-06-13] MEDS: FLUTICASONE/VILANTEROL 1 EACH BLST.W.DEV INH SCH (08:25)
[2022-06-13] MEDS: CALCITRIOL 0.25 MCG CAPSULE PO SCH (08:25)
[2022-06-13] MEDS: INSULIN REGULAR, HUMAN 300 UNIT/3 ML VIAL SQ PRN (08:27)
--- NOTE | 2022-06-13 18:20 | NUR ---
Pt. discharged home. picked him up. Al personal belonging returned to the pt. and all necessary document signed. Pt. noted to be stable upon the discharge. IV line removed and body check done and pictures included in pt. chart.
== END 2022-06-13 16:25 | disposition home health service (06) | DRG 871 ==
LOC: ER 18:48 → TELE3 22:24
PROVIDERS: ADMIT Internal Medicine; ATTEND Internal Medicine
PROC: 05H533Z Insertion of Infusion Device into Right Subclavian Vein, Percutaneous Approach (ICD-10-PCS; principal; 2022-06-10)
PROC: B546ZZA Ultrasonography of Right Subclavian Vein, Guidance (ICD-10-PCS; 2022-06-10)
DX: A41.9 Sepsis, unspecified organism (principal); J15.6 Pneumonia due to other Gram-negative bacteria; J96.21 Acute and chronic respiratory failure with hypoxia; Z68.43 Body mass index [BMI] 50.0-59.9, adult; N17.9 Acute kidney failure, unspecified; I87.312 Chronic venous hypertension (idiopathic) with ulcer of left lower extremity; L97.829 Non-pressure chronic ulcer of other part of left lower leg with unspecified severity; D68.2 Hereditary deficiency of other clotting factors; I50.42 Chronic combined systolic (congestive) and diastolic (congestive) heart failure; Z20.822 Contact with and (suspected) exposure to COVID-19; E66.01 Morbid (severe) obesity due to excess calories; D64.9 Anemia, unspecified; E03.9 Hypothyroidism, unspecified; I11.0 Hypertensive heart disease with heart failure; I48.0 Paroxysmal atrial fibrillation; Z79.01 Long term (current) use of anticoagulants; Z79.82 Long term (current) use of aspirin; Z79.84 Long term (current) use of oral hypoglycemic drugs; G47.33 Obstructive sleep apnea (adult) (pediatric); I87.8 Other specified disorders of veins; E11.9 Type 2 diabetes mellitus without complications
CPT/HCPCS: 36415; 36600; 71045; 71250; 83735; 83970; 84100; 84155; 84156; 84165; 84300; 84443; 84481; 84484; 85025; 87040; 93005; 93307; 94640; A4663; A9150; G0378; J0692; J1815; J1956; J3535; J8499

== ENCOUNTER 2023-02-24 18:10 | Inpatient (IN) | payer MEDICARE, BC ==
[~2023-02-24] VITALS: Ht 172.7 cm; Wt 167.0 kg
[~2023-02-24 18:10] MED LIST changes: -ACET325T53 PO; -ALBU8.5H8 INH; +AMOX-430 PO; +APIX5TAB PO; -BLOOD SUGAR DIAGNOSTIC 1 EACH STRIP VI SCH; +EMPA25TA PO; -FAMO-132 PO; +FLUT1BLS INH; -GLIM2TAB31 PO; +METF-442 PO; -METH4TAB3 PO; -NIFE-35 PO
[2023-02-24] MEDS ORDERED: IV NORMAL SALINE 1000 ML BAG IV ONE (18:30)
[2023-02-24] MEDS ORDERED: AVANDARYL (18:38)
[2023-02-24] MEDS ORDERED: FOLIC ACID (18:38)
[2023-02-24] MEDS ORDERED: VYTORIN (18:38)
[2023-02-24] MEDS ORDERED: NIFEDIPINE (18:38)
[2023-02-24 18:55] LABS: BASOPHILS # (AUTO) 0.1 K/UL (0.0-0.2); BASOPHILS % (AUTO) 1.7 % (0.0-2.0); EOSINOPHILS # (AUTO) 0.4 K/uL (0.0-0.7); EOSINOPHILS % (AUTO) 5.8 % (0.0-7.0); HEMOGLOBIN 11.9 g/dL (12.5-16.3); LYMPHOCYTES # (AUTO) 1.2 K/uL (0.8-4.8); LYMPHOCYTES % (AUTO) 16.3 % (20.5-51.5); MEAN CORPUSCULAR HEMOGLOBIN 25.9 uug (23.8-33.4); MEAN CORPUSCULAR HGB CONC 32 g/dL (32.5-36.3); MEAN CORPUSCULAR VOLUME 80.6 fL (73.0-96.2); MONOCYTES # (AUTO) 0.5 K/uL (0.1-1.30); MONOCYTES % (AUTO) 7.4 % (0.0-11.0); NEUTROPHILS # (AUTO) 4.9 K/uL (1.8-8.9); NEUTROPHILS % (AUTO) 68.8 % (38.5-71.5); PLATELET COUNT (AUTO) 188 K/uL (152-348); RED BLOOD CELL COUNT(AUTO) 4.58 MIL/uL (4.06-5.63); RED CELL DISTRIBUTION WIDTH 17.7 % (12.1-16.2); WHITE BLOOD COUNT (AUTO) 7.1 K/uL (3.6-10.2)
[2023-02-24 18:57] LABS: DIFFERENTIAL COMMENT 1
[2023-02-24 19:04] LABS: CARBON DIOXIDE 27 mmol/L (21-32); CHLORIDE 102 mmol/L (98-107); CREATININE 1.4 mg/dL (0.6-1.3); GLUCOSE 131 mg/dL (74-106); POTASSIUM 5.1 mmol/L (3.5-5.1); SODIUM SERUM 140 mmol/L (136-145); UREA NITROGEN, BLOOD 18 mg/dL (7-18)
[2023-02-24 19:18] LABS: LACTIC ACID 2.5 mmol/L (0.4-2.0)
[2023-02-24] MEDS ORDERED: ASPIRIN/DIPYRIDAMOLE 25/200 MG CAPSULE ONE (19:21)
[2023-02-24] MEDS ORDERED: ASPIRIN/DIPYRIDAMOLE 25/200 MG CAPSULE PO ONE (19:30)
[2023-02-24 21:22] LABS: BILIRUBIN,DIRECT 0.1 mg/dL (0.0-0.2); BILIRUBIN,TOTAL 0.7 mg/dL (0.2-1.0)
[2023-02-24 21:25] VITALS: BP 130/57; TEMP 98.1; O2SAT 94
[2023-02-24] MEDS ORDERED: MAGNESIUM HYDROXIDE 30 ML LIQUID UDC PO PRN (21:45)
[2023-02-24] MEDS ORDERED: IV NS 1000 ML 1,000 ML IV PRN (21:45)
[2023-02-24] MEDS ORDERED: ONDANSETRON 4 MG/2 ML VIAL IV PRN (21:45)
[2023-02-24] MEDS ORDERED: ENOXAPARIN SODIUM 40 MG/0.4 ML DISP.SYRIN SQ SCH (21:45)
[2023-02-25 00:17] VITALS: BP 143/67; TEMP 98.2; O2SAT 95
[2023-02-25] MEDS: ACETAMINOPHEN 325 MG TABLET PO PRN (04:03)
[2023-02-25 04:10] VITALS: BP 124/70; TEMP 98.8; O2SAT 92
[2023-02-25 04:16] LABS: BASOPHILS # (AUTO) 0.1 K/UL (0.0-0.2); EOSINOPHILS # (AUTO) 0.3 K/uL (0.0-0.7); EOSINOPHILS % (AUTO) 4.4 % (0.0-7.0); HEMATOCRIT 36.8 % (36.7-47.1); LYMPHOCYTES # (AUTO) 1.2 K/uL (0.8-4.8); LYMPHOCYTES % (AUTO) 15.1 % (20.5-51.5); MEAN CORPUSCULAR HGB CONC 33 g/dL (32.5-36.3); MEAN CORPUSCULAR VOLUME 79.8 fL (73.0-96.2); MONOCYTES # (AUTO) 0.8 K/uL (0.1-1.30); MONOCYTES % (AUTO) 9.7 % (0.0-11.0); NEUTROPHILS # (AUTO) 5.4 K/uL (1.8-8.9); NEUTROPHILS % (AUTO) 69.8 % (38.5-71.5); PLATELET COUNT (AUTO) 184 K/uL (152-348); RED BLOOD CELL COUNT(AUTO) 4.61 MIL/uL (4.06-5.63); RED CELL DISTRIBUTION WIDTH 17.5 % (12.1-16.2); WHITE BLOOD COUNT (AUTO) 7.8 K/uL (3.6-10.2)
[2023-02-25 04:23] LABS: DIFFERENTIAL COMMENT 1
[2023-02-25 04:29] LABS: CALCIUM 7.8 mg/dL (8.5-10.1); CARBON DIOXIDE 27 mmol/L (21-32); CHLORIDE 105 mmol/L (98-107); CREATININE 1.5 mg/dL (0.6-1.3); GLUCOSE 144 mg/dL (74-106); POTASSIUM 3.6 mmol/L (3.5-5.1); SODIUM SERUM 143 mmol/L (136-145); UREA NITROGEN, BLOOD 16 mg/dL (7-18)
[2023-02-25 04:41] LABS: ALANINE AMINOTRANSFERASE 21 U/L (16-63); ALBUMIN 3.2 g/dL (3.4-5.0); ALKALINE PHOSPHATASE 63 U/L (50-136); ASPARTATE AMINOTRANSFERASE 15 U/L (15-37); BILIRUBIN,TOTAL 0.7 mg/dL (0.2-1.0); CHOLESTEROL 145 mg/dL (<200); ERYTHROCYTE SEDIMENTATION RATE 64 MM/HR (0-15); HDL CHOLESTEROL 44 mg/dL (40-60); MAGNESIUM 2.1 mg/dL (1.8-2.4); NT-PRO BNP 178 pg/mL (0-125); PHOSPHOROUS 4.2 mg/dL (2.5-4.9); TOTAL PROTEIN, SERUM 7.2 g/dL (6.4-8.2); TRIGLYCERIDES 114 MG/DL (30-150)
[2023-02-25 04:42] LABS: THYROID STIMULATING HORMONE 0.578 mIU/mL (0.358-3.740)
[2023-02-25] MEDS: LEVOTHYROXINE SODIUM 200 MCG TABLET PO SCH (06:15)
[2023-02-25 08:00] VITALS: BP 131/57; TEMP 98; O2SAT 92
[2023-02-25] MEDS ORDERED: METFORMIN HCL 850 MG TABLET PO SCH (08:00)
[2023-02-25] MEDS ORDERED: METFORMIN HCL 500 MG TABLET PO SCH (08:00)
[2023-02-25] MEDS ORDERED: FOLI1TAB94 PO (08:23)
[2023-02-25] MEDS ORDERED: NIFE-35 PO (08:23)
[2023-02-25] MEDS: METFORMIN HCL 500 MG TABLET PO SCH ×2 (08:26→18:00)
[2023-02-25] MEDS: MULTIVITAMINS,THERAPEUTIC TABLET PO SCH (08:29)
[2023-02-25] MEDS: ASPIRIN EC 81 MG TABLET.DR PO SCH (08:29)
[2023-02-25] MEDS: APIXABAN 5 MG TABLET PO SCH ×2 (08:29→21:10)
[2023-02-25] MEDS: CARVEDILOL 3.125 MG TABLET PO SCH ×2 (08:30→21:12)
[2023-02-25] MEDS: LISINOPRIL 10 MG TABLET PO SCH (08:31)
[2023-02-25] MEDS: FUROSEMIDE 40 MG TABLET PO SCH (08:31)
[2023-02-25] MEDS: GABAPENTIN 300 MG CAPSULE PO SCH ×2 (08:31→21:11)
[2023-02-25] MEDS ORDERED: Medication Not On Formulary EA (Empagliflozin (Jardiance) 25 MG) PO SCH (09:00)
[2023-02-25] MEDS: LIOTHYRONINE SODIUM 25 MCG TABLET PO SCH (09:11)
[2023-02-25] MEDS: CALCITRIOL 0.25 MCG CAPSULE PO SCH (09:11)
[2023-02-25] MEDS: FLUTICASONE/VILANTEROL 1 EACH BLST.W.DEV INH SCH (09:11)
[2023-02-25] MEDS ORDERED: GLIM2TAB31 PO (09:19)
[2023-02-25] MEDS ORDERED: REMEDY ESSENTIAL ZINC PASTE 113 GM TOP PRN (10:15)
[2023-02-25] MEDS: NIFEdipine XL 30 MG TABSR PO SCH (11:07)
[2023-02-25 11:44] VITALS: BP 115/47; TEMP 97.6; O2SAT 94
[2023-02-25 16:00] VITALS: BP 111/63; TEMP 98.6; O2SAT 91
[2023-02-25] MEDS ORDERED: GLIMEPIRIDE 2 MG TABLET PO SCH (18:00)
[2023-02-25 20:00] VITALS: BP 137/73; TEMP 99.5; O2SAT 93
[2023-02-25] MEDS ORDERED: SIMVASTATIN 10 MG TABLET PO SCH (21:00)
[2023-02-26] VITALS: BP 150/84; TEMP 98.1; O2SAT 93
[2023-02-26] MEDS: ACETAMINOPHEN 325 MG TABLET PO PRN (01:04)
[2023-02-26 04:00] VITALS: BP 150/79; TEMP 98; O2SAT 93
[2023-02-26] MEDS: LEVOTHYROXINE SODIUM 200 MCG TABLET PO SCH (06:11)
[2023-02-26] MEDS: CARVEDILOL 3.125 MG TABLET PO SCH (09:24)
[2023-02-26] MEDS: LISINOPRIL 10 MG TABLET PO SCH (09:24)
[2023-02-26] MEDS: NIFEdipine XL 30 MG TABSR PO SCH (09:25)
[2023-02-26] MEDS: ASPIRIN EC 81 MG TABLET.DR PO SCH (09:25)
[2023-02-26] MEDS: FUROSEMIDE 40 MG TABLET PO SCH (09:25)
[2023-02-26] MEDS: GABAPENTIN 300 MG CAPSULE PO SCH (09:25)
[2023-02-26] MEDS: MULTIVITAMINS,THERAPEUTIC TABLET PO SCH (09:25)
[2023-02-26] MEDS: CALCITRIOL 0.25 MCG CAPSULE PO SCH (09:25)
[2023-02-26] MEDS: APIXABAN 5 MG TABLET PO SCH (09:27)
[2023-02-26] MEDS: METFORMIN HCL 500 MG TABLET PO SCH (09:33)
[2023-02-26] MEDS: FLUTICASONE/VILANTEROL 1 EACH BLST.W.DEV INH SCH (10:09)
[2023-02-26] MEDS: LIOTHYRONINE SODIUM 25 MCG TABLET PO SCH (10:09)
[2023-02-26 11:39] VITALS: BP 149/79; TEMP 96.8; O2SAT 92
[2023-02-28] MEDS ORDERED: IV NORMAL SALINE 250 ML IV ONE (14:44)
[2023-02-28] MEDS ORDERED: SWABABLE VALVE TRANSFER SET EA MC ONE (14:44)
[2023-02-28] MEDS ORDERED: IOHEXOL 350 100 ML INFUS..BTL ONE (14:44)
== END 2023-02-26 13:10 | disposition home health service (06) | DRG 69 ==
LOC: ER 18:11 → TELE3 21:01
PROVIDERS: ADMIT Nurse Practitioner Acute Care; ATTEND Nurse Practitioner Acute Care
DX: G45.9 Transient cerebral ischemic attack, unspecified (principal); N17.0 Acute kidney failure with tubular necrosis; D68.69 Other thrombophilia; Z68.43 Body mass index [BMI] 50.0-59.9, adult; E87.20 Acidosis, unspecified; R47.81 Slurred speech; R29.700 NIHSS score 0; E66.01 Morbid (severe) obesity due to excess calories; E11.9 Type 2 diabetes mellitus without complications; G47.30 Sleep apnea, unspecified; I48.91 Unspecified atrial fibrillation; Z79.01 Long term (current) use of anticoagulants; Z79.82 Long term (current) use of aspirin; Z79.84 Long term (current) use of oral hypoglycemic drugs; E05.00 Thyrotoxicosis with diffuse goiter without thyrotoxic crisis or storm; E86.0 Dehydration; D63.1 Anemia in chronic kidney disease; N18.9 Chronic kidney disease, unspecified; E11.22 Type 2 diabetes mellitus with diabetic chronic kidney disease
CPT/HCPCS: 36415; 70450; 71045; 83605; 83735; 84100; 84443; 84484; 85025; 85651; 85730; 93005; 93880; 94660; A4663; G0378; J7040; J8499; Q9967

== ENCOUNTER 2023-02-26 14:55 | Inpatient (IN) | payer MEDICARE, BC ==
[~2023-02-26] VITALS: Ht 172.7 cm; Wt 170.1 kg
[~2023-02-26 14:55] MED LIST changes: -AMOX-430 PO; +FOLI1TAB94 PO; +GLIM2TAB31 PO; +NIFE-35 PO
[2023-02-26] MEDS ORDERED: IV NORMAL SALINE 250 ML IV ONE (15:07)
[2023-02-26] MEDS ORDERED: SWABABLE VALVE TRANSFER SET EA MC ONE (15:07)
[2023-02-26] MEDS ORDERED: IOHEXOL 350 100 ML INFUS..BTL ONE (15:07)
[2023-02-26 15:09] LABS: BASOPHILS # (AUTO) 0.1 K/UL (0.0-0.2); BASOPHILS % (AUTO) 1.1 % (0.0-2.0); EOSINOPHILS # (AUTO) 0.3 K/uL (0.0-0.7); EOSINOPHILS % (AUTO) 2.8 % (0.0-7.0); HEMATOCRIT 37.2 % (36.7-47.1); LYMPHOCYTES # (AUTO) 0.8 K/uL (0.8-4.8); LYMPHOCYTES % (AUTO) 7.5 % (20.5-51.5); MEAN CORPUSCULAR HEMOGLOBIN 25.8 uug (23.8-33.4); MEAN CORPUSCULAR HGB CONC 32 g/dL (32.5-36.3); MEAN CORPUSCULAR VOLUME 80.2 fL (73.0-96.2); MONOCYTES % (AUTO) 9.8 % (0.0-11.0); NEUTROPHILS # (AUTO) 8.2 K/uL (1.8-8.9); NEUTROPHILS % (AUTO) 78.8 % (38.5-71.5); PLATELET COUNT (AUTO) 189 K/uL (152-348); RED BLOOD CELL COUNT(AUTO) 4.64 MIL/uL (4.06-5.63); RED CELL DISTRIBUTION WIDTH 17.6 % (12.1-16.2); WHITE BLOOD COUNT (AUTO) 10.5 K/uL (3.6-10.2)
[2023-02-26 15:20] LABS: CALCIUM 8.2 mg/dL (8.5-10.1); CREATININE 1.2 mg/dL (0.6-1.3); POTASSIUM 3.6 mmol/L (3.5-5.1)
[2023-02-26 15:26] LABS: ALBUMIN 3.5 g/dL (3.4-5.0); BILIRUBIN,TOTAL 1.3 mg/dL (0.2-1.0)
[2023-02-26 15:32] LABS: DIFFERENTIAL COMMENT 1
[2023-02-26] MEDS ORDERED: ONDANSETRON 4 MG/2 ML VIAL ONE (16:35)
[2023-02-26] MEDS ORDERED: MORPHINE SULFATE 4 MG/1 ML DISP.SYRIN ONE (16:36)
[2023-02-26] MEDS ORDERED: MORPHINE SULFATE 4 MG/1 ML DISP.SYRIN IV ONE (16:45)
[2023-02-26] MEDS ORDERED: ONDANSETRON 4 MG/2 ML VIAL IV ONE (16:45)
[2023-02-26] MEDS ORDERED: ONDANSETRON 4 MG/2 ML VIAL IV PRN (19:00)
[2023-02-26] MEDS: GLIMEPIRIDE 2 MG TABLET PO SCH (19:39)
[2023-02-26] MEDS: METFORMIN HCL 500 MG TABLET PO SCH (19:42)
[2023-02-26 20:00] VITALS: BP 133/78; TEMP 99.3
[2023-02-26 20:30] VITALS: BP 131/68; TEMP 98
[2023-02-26] MEDS: CARVEDILOL 3.125 MG TABLET PO SCH (20:33)
[2023-02-26] MEDS: GABAPENTIN 300 MG CAPSULE PO SCH (20:33)
[2023-02-26] MEDS: SIMVASTATIN 10 MG TABLET PO SCH (20:34)
[2023-02-26 21:00] VITALS: BP 126/60; TEMP 98.2
[2023-02-27] VITALS (8 sets, daily range): BP systolic 102–139; BP diastolic 48–78; TEMP 98–100.8; O2SAT 93–99
[2023-02-27 05:08] LABS: BASOPHILS # (AUTO) 0.1 K/UL (0.0-0.2); BASOPHILS % (AUTO) 0.6 % (0.0-2.0); EOSINOPHILS # (AUTO) 0.2 K/uL (0.0-0.7); EOSINOPHILS % (AUTO) 1.9 % (0.0-7.0); HEMATOCRIT 35.6 % (36.7-47.1); HEMOGLOBIN 11.6 g/dL (12.5-16.3); LYMPHOCYTES # (AUTO) 0.6 K/uL (0.8-4.8); LYMPHOCYTES % (AUTO) 7.7 % (20.5-51.5); MEAN CORPUSCULAR HEMOGLOBIN 26.1 uug (23.8-33.4); MEAN CORPUSCULAR HGB CONC 33 g/dL (32.5-36.3); MEAN CORPUSCULAR VOLUME 80.1 fL (73.0-96.2); MONOCYTES # (AUTO) 0.8 K/uL (0.1-1.30); MONOCYTES % (AUTO) 10.3 % (0.0-11.0); NEUTROPHILS # (AUTO) 6.5 K/uL (1.8-8.9); NEUTROPHILS % (AUTO) 79.5 % (38.5-71.5); PLATELET COUNT (AUTO) 161 K/uL (152-348); RED BLOOD CELL COUNT(AUTO) 4.45 MIL/uL (4.06-5.63); RED CELL DISTRIBUTION WIDTH 17.1 % (12.1-16.2); WHITE BLOOD COUNT (AUTO) 8.2 K/uL (3.6-10.2)
[2023-02-27 05:16] LABS: DIFFERENTIAL COMMENT 1
[2023-02-27 05:30] LABS: CALCIUM 7.7 mg/dL (8.5-10.1); CREATININE 1.3 mg/dL (0.6-1.3); MAGNESIUM 1.9 mg/dL (1.8-2.4); PHOSPHOROUS 4.7 mg/dL (2.5-4.9); POTASSIUM 3.5 mmol/L (3.5-5.1)
[2023-02-27] MEDS: LEVOTHYROXINE SODIUM 200 MCG TABLET PO SCH (07:00)
[2023-02-27] MEDS: METFORMIN HCL 500 MG TABLET PO SCH ×2 (08:00→17:32)
[2023-02-27] MEDS: ASPIRIN EC 81 MG TABLET.DR PO SCH (08:21)
[2023-02-27] MEDS: LISINOPRIL 10 MG TABLET PO SCH (08:21)
[2023-02-27] MEDS: GABAPENTIN 300 MG CAPSULE PO SCH ×2 (08:21→20:50)
[2023-02-27] MEDS: CARVEDILOL 3.125 MG TABLET PO SCH ×2 (08:21→20:50)
[2023-02-27] MEDS: LIOTHYRONINE SODIUM 25 MCG TABLET PO SCH (08:21)
[2023-02-27] MEDS: FOLIC ACID 1 MG TABLET PO SCH (08:21)
[2023-02-27] MEDS: FUROSEMIDE 40 MG TABLET PO SCH (08:21)
[2023-02-27] MEDS: MULTIVITAMINS,THERAPEUTIC TABLET PO SCH (08:22)
[2023-02-27] MEDS: CALCITRIOL 0.25 MCG CAPSULE PO SCH (08:22)
[2023-02-27] MEDS: NIFEdipine XL 30 MG TABSR PO SCH (08:22)
[2023-02-27] MEDS: FLUTICASONE/VILANTEROL 1 EACH BLST.W.DEV INH SCH (09:48)
[2023-02-27] MEDS: GLIMEPIRIDE 2 MG TABLET PO SCH (17:32)
[2023-02-27] MEDS: SIMVASTATIN 10 MG TABLET PO SCH (20:50)
[2023-02-27] MEDS ORDERED: ENOXAPARIN SODIUM 40 MG/0.4 ML DISP.SYRIN SQ SCH (21:00)
[2023-02-28] VITALS (9 sets, daily range): BP systolic 103–143; BP diastolic 65–86; TEMP 98.6–101.7; O2SAT 90–96
[2023-02-28] MEDS: LEVOTHYROXINE SODIUM 200 MCG TABLET PO SCH (05:16)
[2023-02-28 06:39] LABS: BASOPHILS % (AUTO) 0.4 % (0.0-2.0); EOSINOPHILS % (AUTO) 0.4 % (0.0-7.0); HEMATOCRIT 36.4 % (36.7-47.1); LYMPHOCYTES # (AUTO) 0.7 K/uL (0.8-4.8); LYMPHOCYTES % (AUTO) 7.1 % (20.5-51.5); MEAN CORPUSCULAR HEMOGLOBIN 26.6 uug (23.8-33.4); MEAN CORPUSCULAR HGB CONC 33 g/dL (32.5-36.3); MEAN CORPUSCULAR VOLUME 80.9 fL (73.0-96.2); MONOCYTES # (AUTO) 1.1 K/uL (0.1-1.30); MONOCYTES % (AUTO) 10.9 % (0.0-11.0); NEUTROPHILS # (AUTO) 8.5 K/uL (1.8-8.9); NEUTROPHILS % (AUTO) 81.2 % (38.5-71.5); PLATELET COUNT (AUTO) 193 K/uL (152-348); RED CELL DISTRIBUTION WIDTH 17.2 % (12.1-16.2); WHITE BLOOD COUNT (AUTO) 10.5 K/uL (3.6-10.2)
[2023-02-28 06:54] LABS: DIFFERENTIAL COMMENT 1
[2023-02-28 07:00] LABS: CARBON DIOXIDE 26 mmol/L (21-32); CHLORIDE 106 mmol/L (98-107); CREATININE 1.5 mg/dL (0.6-1.3); GLUCOSE 141 mg/dL (74-106); MAGNESIUM 2.2 mg/dL (1.8-2.4); PHOSPHOROUS 3.7 mg/dL (2.5-4.9); POTASSIUM 3.5 mmol/L (3.5-5.1); SODIUM SERUM 145 mmol/L (136-145); UREA NITROGEN, BLOOD 19 mg/dL (7-18)
[2023-02-28 07:23] LABS: CALCIUM 8.2 mg/dL (8.5-10.1)
[2023-02-28] MEDS: METFORMIN HCL 500 MG TABLET PO SCH ×2 (08:00→18:00)
[2023-02-28] MEDS: CALCITRIOL 0.25 MCG CAPSULE PO SCH (09:00)
[2023-02-28] MEDS: ASPIRIN EC 81 MG TABLET.DR PO SCH (09:00)
[2023-02-28] MEDS: CARVEDILOL 3.125 MG TABLET PO SCH ×2 (09:00→22:04)
[2023-02-28] MEDS: EMPAGLIFLOZIN 25 MG TABLET PO SCH (09:00)
[2023-02-28] MEDS: FUROSEMIDE 40 MG TABLET PO SCH (09:00)
[2023-02-28] MEDS: FOLIC ACID 1 MG TABLET PO SCH (09:00)
[2023-02-28] MEDS: GABAPENTIN 300 MG CAPSULE PO SCH ×2 (09:00→22:05)
[2023-02-28] MEDS: NIFEdipine XL 30 MG TABSR PO SCH (09:00)
[2023-02-28] MEDS: LIOTHYRONINE SODIUM 25 MCG TABLET PO SCH (09:00)
[2023-02-28] MEDS: LISINOPRIL 10 MG TABLET PO SCH (09:00)
[2023-02-28] MEDS: MULTIVITAMINS,THERAPEUTIC TABLET PO SCH (09:00)
[2023-02-28] MEDS: FLUTICASONE/VILANTEROL 1 EACH BLST.W.DEV INH SCH (09:07)
[2023-02-28] MEDS: CEFEPIME HCL 1 G in IV DEXTROSE 5% 50 ML IV SCH ×3 (10:22→22:05)
[2023-02-28] MEDS: IV NS 1000 ML 1,000 ML IV PRN (10:24)
[2023-02-28] MEDS ORDERED: ASPIRIN 300 MG RECTAL SUPP RC ONE (16:00)
[2023-02-28] MEDS: APIXABAN 5 MG TABLET NG SCH (17:55)
[2023-02-28] MEDS: GLIMEPIRIDE 2 MG TABLET PO SCH (18:00)
[2023-02-28 21:10] LABS: ABG BASE EXCESS 1.4 mmol/L; ABG HCO3 26.9 mmol/L; ABG PCO2 45.5 mmHg (35.0-45.0); ABG PH 7.389 (7.350-7.450); ABG PO2 69.5 mmHg (75.0-100.0); ABG SITE RIGHT RADIAL; ABG TOTAL HEMOGLOBIN 13.4 G/dL (13.5-18.0); COHb 1.1 % (0.5-1.5); CPAP,BG 10 cmH20; MetHb 0.2 % (0.0-1.5); O2Hb 91.7 % (94.0-97.0)
[2023-02-28] MEDS: ACETAMINOPHEN 325 MG TABLET PO PRN (22:04)
[2023-02-28] MEDS: SIMVASTATIN 10 MG TABLET PO SCH (22:10)
[2023-02-28 22:46] LABS: *CLARITY,URINE CLEAR (CLEAR); *COLOR,URINE YELLOW (YELLOW); *KETONES,URINE NEGATIVE (NEGATIVE); *PROTEIN,URINE 1+ (NEGATIVE); LEUKOCYTE ESTERASE ,URINE NEGATIVE (NEGATIVE); NITRITE, URINE NEGATIVE (NEGATIVE); PH,URINE 5.5 (5.0-8.0); UGLUCOSE NEGATIVE (NEGATIVE)
[2023-02-28 22:56] LABS: *BILIRUBIN,URIN 1+ (NEGATIVE); *BLOOD, URINE NEGATIVE (NEGATIVE)
[2023-02-28] MEDS: CHLORHEXIDINE GLUCONATE 15 ML MOUTHWASH MM SCH (23:47)
[2023-03-01] VITALS (60 sets, daily range): BP systolic 80–138; BP diastolic 41–88; TEMP 98.1–100.1; O2SAT 21–99
[2023-03-01] MEDS: CHLORHEXIDINE GLUCONATE 15 ML MOUTHWASH MM SCH ×7 (04:17→23:58)
[2023-03-01 04:58] LABS: BASOPHILS # (AUTO) 0.1 K/UL (0.0-0.2); BASOPHILS % (AUTO) 1.3 % (0.0-2.0); EOSINOPHILS # (AUTO) 0.1 K/uL (0.0-0.7); EOSINOPHILS % (AUTO) 0.6 % (0.0-7.0); HEMATOCRIT 36.1 % (36.7-47.1); HEMOGLOBIN 11.5 g/dL (12.5-16.3); LYMPHOCYTES # (AUTO) 0.9 K/uL (0.8-4.8); LYMPHOCYTES % (AUTO) 7.7 % (20.5-51.5); MEAN CORPUSCULAR HEMOGLOBIN 26.1 uug (23.8-33.4); MEAN CORPUSCULAR HGB CONC 32 g/dL (32.5-36.3); MEAN CORPUSCULAR VOLUME 81.5 fL (73.0-96.2); MONOCYTES # (AUTO) 1.2 K/uL (0.1-1.30); MONOCYTES % (AUTO) 10.4 % (0.0-11.0); NEUTROPHILS # (AUTO) 9.1 K/uL (1.8-8.9); PLATELET COUNT (AUTO) 226 K/uL (152-348); RED BLOOD CELL COUNT(AUTO) 4.43 MIL/uL (4.06-5.63); RED CELL DISTRIBUTION WIDTH 17.3 % (12.1-16.2); WHITE BLOOD COUNT (AUTO) 11.4 K/uL (3.6-10.2)
[2023-03-01 05:04] LABS: DIFFERENTIAL COMMENT 1
[2023-03-01 05:13] LABS: CALCIUM 8.2 mg/dL (8.5-10.1); CARBON DIOXIDE 29 mmol/L (21-32); CHLORIDE 109 mmol/L (98-107); CREATININE 2.2 mg/dL (0.6-1.3); GLUCOSE 149 mg/dL (74-106); MAGNESIUM 2.4 mg/dL (1.8-2.4); PHOSPHOROUS 4.4 mg/dL (2.5-4.9); POTASSIUM 3.9 mmol/L (3.5-5.1); SODIUM SERUM 146 mmol/L (136-145); UREA NITROGEN, BLOOD 38 mg/dL (7-18)
[2023-03-01] MEDS: CEFEPIME HCL 1 G in IV DEXTROSE 5% 50 ML IV SCH (05:21)
[2023-03-01] MEDS: LEVOTHYROXINE SODIUM 200 MCG TABLET PO SCH (07:32)
[2023-03-01] MEDS ORDERED: IPRATROPIUM BROMIDE 0.5 MG/2.5 ML NEBU NEB PRN (08:00)
[2023-03-01] MEDS ORDERED: LEVALBUTEROL HCL NEB 0.63 MG/3 ML NEBU NEB PRN (08:00)
[2023-03-01] MEDS: GABAPENTIN 300 MG CAPSULE PO SCH ×2 (09:32→20:37)
[2023-03-01] MEDS: MULTIVITAMINS,THERAPEUTIC TABLET PO SCH (09:33)
[2023-03-01] MEDS: ASPIRIN EC 81 MG TABLET.DR PO SCH (09:33)
[2023-03-01] MEDS: CARVEDILOL 3.125 MG TABLET PO SCH ×2 (09:33→20:47)
[2023-03-01] MEDS: ACETAMINOPHEN 325 MG TABLET PO PRN (09:38)
[2023-03-01] MEDS: FOLIC ACID 1 MG TABLET PO SCH (09:38)
[2023-03-01] MEDS: CALCITRIOL 0.25 MCG CAPSULE PO SCH (09:39)
[2023-03-01] MEDS: LIOTHYRONINE SODIUM 25 MCG TABLET PO SCH (09:40)
[2023-03-01] MEDS: FLUTICASONE/VILANTEROL 1 EACH BLST.W.DEV INH SCH (09:41)
[2023-03-01] MEDS: EMPAGLIFLOZIN 25 MG TABLET PO SCH (09:42)
[2023-03-01] MEDS: NIFEdipine XL 30 MG TABSR PO SCH (09:43)
[2023-03-01] MEDS: GLIMEPIRIDE 2 MG TABLET PO SCH (09:45)
[2023-03-01] MEDS: APIXABAN 5 MG TABLET NG SCH ×2 (09:49→16:59)
[2023-03-01] MEDS: IV NS 1000 ML 1,000 ML IV PRN ×2 (10:14→23:29)
[2023-03-01] MEDS ORDERED: NOREPINEPHRINE BITARTRATE 32 MG in IV NORMAL SALINE 218 ML IV PRN (11:15)
[2023-03-01] MEDS ORDERED: REMEDY ESSENTIAL ZINC PASTE 113 GM TOP PRN (11:45)
[2023-03-01] MEDS ORDERED: VANCOMYCIN IV 2,000 MG in IV DEXTROSE 5% 500 ML IV ONE (13:00)
[2023-03-01] MEDS: NOREPINEPHRINE BITARTRATE 32 MG in IV NORMAL SALINE 218 ML IV PRN ×2 (14:40→15:30)
[2023-03-01] MEDS ORDERED: PIPERACILLIN SODIUM/TAZOBACTAM 3.375 G in IV DEXTROSE 5% 50 ML IV SCH (15:30)
[2023-03-01] MEDS: PROTEIN SUPPLEMENT (PROSTAT) 30 ML LIQUID GT SCH (16:56)
[2023-03-01 18:27] LABS: *BLOOD, URINE 3+ (NEGATIVE); *CLARITY,URINE SLIGHTLY CLOUDY (CLEAR); *COLOR,URINE DARK YELLOW (YELLOW); *KETONES,URINE TRACE (NEGATIVE); *PROTEIN,URINE 2+ (NEGATIVE); LEUKOCYTE ESTERASE ,URINE NEGATIVE (NEGATIVE); NITRITE, URINE NEGATIVE (NEGATIVE)
[2023-03-01 18:31] LABS: *BILIRUBIN,URIN 1+ (NEGATIVE); UGLUCOSE 2+ (NEGATIVE)
[2023-03-01 18:34] LABS: *CREATININE,URINE 252.3 mg/dL (30-125); *URINE TOTAL PROTEIN RANDOM 127.5 mg/dL (<150/24HR)
[2023-03-01 18:35] LABS: BACTERIA,URINE FEW /HPF (NONE SEEN); RBC,URINE 20-50 /HPF (0-3); SQUAMOUS EPITHELIAL CELL,UR FEW /HPF (NONE SEEN); URINE AMORPHOUS URATE FEW /HPF
[2023-03-01] MEDS: SIMVASTATIN 10 MG TABLET PO SCH (20:37)
[2023-03-02] VITALS (47 sets, daily range): BP systolic 65–129; BP diastolic 41–70; TEMP 96.8–100.2; O2SAT 92–99
[2023-03-02] MEDS: ACETAMINOPHEN 325 MG TABLET PO PRN ×2 (03:30→17:38)
[2023-03-02] MEDS: CHLORHEXIDINE GLUCONATE 15 ML MOUTHWASH MM SCH ×5 (04:10→20:45)
[2023-03-02 05:08] LABS: BASOPHILS # (AUTO) 0.1 K/UL (0.0-0.2); BASOPHILS % (AUTO) 0.7 % (0.0-2.0); EOSINOPHILS # (AUTO) 0.5 K/uL (0.0-0.7); HEMATOCRIT 33.4 % (36.7-47.1); HEMOGLOBIN 10.7 g/dL (12.5-16.3); LYMPHOCYTES # (AUTO) 0.8 K/uL (0.8-4.8); LYMPHOCYTES % (AUTO) 8.2 % (20.5-51.5); MEAN CORPUSCULAR HEMOGLOBIN 26.4 uug (23.8-33.4); MEAN CORPUSCULAR HGB CONC 32 g/dL (32.5-36.3); MEAN CORPUSCULAR VOLUME 82.7 fL (73.0-96.2); MONOCYTES # (AUTO) 0.9 K/uL (0.1-1.30); MONOCYTES % (AUTO) 9.7 % (0.0-11.0); NEUTROPHILS # (AUTO) 7.5 K/uL (1.8-8.9); NEUTROPHILS % (AUTO) 76.4 % (38.5-71.5); PLATELET COUNT (AUTO) 246 K/uL (152-348); RED BLOOD CELL COUNT(AUTO) 4.04 MIL/uL (4.06-5.63); WHITE BLOOD COUNT (AUTO) 9.8 K/uL (3.6-10.2)
[2023-03-02 05:11] LABS: DIFFERENTIAL COMMENT 1
[2023-03-02 05:29] LABS: ALANINE AMINOTRANSFERASE 61 U/L (16-63); ALBUMIN 2.2 g/dL (3.4-5.0); ALKALINE PHOSPHATASE 59 U/L (50-136); ASPARTATE AMINOTRANSFERASE 97 U/L (15-37); BILIRUBIN,TOTAL 0.9 mg/dL (0.2-1.0); CALCIUM 8.1 mg/dL (8.5-10.1); CARBON DIOXIDE 25 mmol/L (21-32); CHLORIDE 112 mmol/L (98-107); CREATINE KINASE, TOTAL 1767 U/L (39-308); CREATININE 2.6 mg/dL (0.6-1.3); GLUCOSE 111 mg/dL (74-106); MAGNESIUM 2.5 mg/dL (1.8-2.4); PHOSPHOROUS 6.6 mg/dL (2.5-4.9); POTASSIUM 4.1 mmol/L (3.5-5.1); SODIUM SERUM 149 mmol/L (136-145); UREA NITROGEN, BLOOD 64 mg/dL (7-18); VANCOMYCIN,RANDOM 16.8 ug/mL (20.0-30.0)
[2023-03-02] MEDS ORDERED: ALBUTEROL SULFATE 1.25 MG/3 ML NEBU NEB PRN (05:30)
[2023-03-02] MEDS ORDERED: CEFEPIME HCL 2 G in IV DEXTROSE 5% 100 ML IV SCH ×4 (06:00)
[2023-03-02] MEDS: LEVOTHYROXINE SODIUM 200 MCG TABLET PO SCH (06:18)
[2023-03-02 06:27] LABS: ABG BASE EXCESS -0.6 mmol/L; ABG HCO3 26.3 mmol/L; ABG PCO2 53.4 mmHg (35.0-45.0); ABG SITE RIGHT RADIAL; ABG TOTAL HEMOGLOBIN 11.9 G/dL (13.5-18.0); COHb 0.4 % (0.5-1.5); CPAP,BG 10 cmH20; MetHb 0.2 % (0.0-1.5); O2Hb 97.9 % (94.0-97.0); VENT MODE CPAP
[2023-03-02] MEDS ORDERED: VANCOMYCIN IV 1,250 MG in IV DEXTROSE 5% 250 ML IV ONE (08:00)
[2023-03-02] MEDS: ASPIRIN EC 81 MG TABLET.DR PO SCH (08:11)
[2023-03-02] MEDS: CALCITRIOL 0.25 MCG CAPSULE PO SCH (08:14)
[2023-03-02] MEDS: EMPAGLIFLOZIN 25 MG TABLET PO SCH (08:15)
[2023-03-02] MEDS: MULTIVITAMINS,THERAPEUTIC TABLET PO SCH (08:15)
[2023-03-02] MEDS: GABAPENTIN 300 MG CAPSULE PO SCH ×2 (08:15→20:45)
[2023-03-02] MEDS: FOLIC ACID 1 MG TABLET PO SCH (08:15)
[2023-03-02] MEDS: LIOTHYRONINE SODIUM 25 MCG TABLET PO SCH (08:16)
[2023-03-02] MEDS: APIXABAN 5 MG TABLET NG SCH ×2 (08:28→16:06)
[2023-03-02] MEDS: FLUTICASONE/VILANTEROL 1 EACH BLST.W.DEV INH SCH (08:49)
[2023-03-02] MEDS: PROTEIN SUPPLEMENT (PROSTAT) 30 ML LIQUID GT SCH ×2 (08:50→16:06)
[2023-03-02] MEDS ORDERED: VANCOMYCIN IV 1,000 MG in IV DEXTROSE 5% 250 ML IV ONE (09:00)
[2023-03-02] MEDS ORDERED: NIFEdipine XL 30 MG TABSR PO SCH (09:00)
[2023-03-02] MEDS ORDERED: CARVEDILOL 3.125 MG TABLET PO SCH (09:00)
[2023-03-02] MEDS ORDERED: NOREPINEPHRINE BITARTRATE 8 MG in IV NORMAL SALINE 242 ML IV PRN (11:00)
[2023-03-02] MEDS: CLOTRIMAZOLE 1% CREAM 30 GM TUBE TOP SCH (16:04)
[2023-03-02] MEDS ORDERED: IBUPROFEN 800 MG TABLET PO PRN (16:30)
[2023-03-02] MEDS: CEFEPIME HCL 2 G in IV DEXTROSE 5% 100 ML IV SCH (17:04)
[2023-03-02] MEDS: GLIMEPIRIDE 2 MG TABLET PO SCH (17:05)
[2023-03-02] MEDS: IV NS 1000 ML 1,000 ML IV PRN (17:08)
[2023-03-02] MEDS: SIMVASTATIN 10 MG TABLET PO SCH (20:45)
[2023-03-03] VITALS (25 sets, daily range): BP systolic 93–165; BP diastolic 42–90; TEMP 97.4–100.3; O2SAT 91–100
[2023-03-03] MEDS: CHLORHEXIDINE GLUCONATE 15 ML MOUTHWASH MM SCH ×7 (00:49→23:41)
[2023-03-03 05:08] LABS: BASOPHILS % (AUTO) 0.6 % (0.0-2.0); EOSINOPHILS # (AUTO) 0.6 K/uL (0.0-0.7); EOSINOPHILS % (AUTO) 7.7 % (0.0-7.0); HEMATOCRIT 32.4 % (36.7-47.1); HEMOGLOBIN 10.2 g/dL (12.5-16.3); LYMPHOCYTES # (AUTO) 0.5 K/uL (0.8-4.8); LYMPHOCYTES % (AUTO) 7.1 % (20.5-51.5); MEAN CORPUSCULAR HEMOGLOBIN 26.3 uug (23.8-33.4); MEAN CORPUSCULAR HGB CONC 32 g/dL (32.5-36.3); MEAN CORPUSCULAR VOLUME 83.3 fL (73.0-96.2); MONOCYTES # (AUTO) 0.6 K/uL (0.1-1.30); MONOCYTES % (AUTO) 7.9 % (0.0-11.0); NEUTROPHILS # (AUTO) 5.6 K/uL (1.8-8.9); NEUTROPHILS % (AUTO) 76.7 % (38.5-71.5); PLATELET COUNT (AUTO) 191 K/uL (152-348); RED BLOOD CELL COUNT(AUTO) 3.89 MIL/uL (4.06-5.63); RED CELL DISTRIBUTION WIDTH 17.2 % (12.1-16.2); WHITE BLOOD COUNT (AUTO) 7.2 K/uL (3.6-10.2)
[2023-03-03] MEDS: CEFEPIME HCL 2 G in IV DEXTROSE 5% 100 ML IV SCH ×2 (05:19→17:13)
[2023-03-03] MEDS: LEVOTHYROXINE SODIUM 200 MCG TABLET PO SCH (05:21)
[2023-03-03 05:24] LABS: CARBON DIOXIDE 27 mmol/L (21-32); CHLORIDE 116 mmol/L (98-107); CREATININE 1.7 mg/dL (0.6-1.3); GLUCOSE 88 mg/dL (74-106); MAGNESIUM 2.7 mg/dL (1.8-2.4); SODIUM SERUM 151 mmol/L (136-145); UREA NITROGEN, BLOOD 59 mg/dL (7-18); VANCOMYCIN,RANDOM 14.4 ug/mL (20.0-30.0)
[2023-03-03 05:32] LABS: DIFFERENTIAL COMMENT 1
[2023-03-03 07:06] LABS: PTH, INTACT 57 pg/mL (15-65)
[2023-03-03] MEDS: IV NS 1000 ML 1,000 ML IV PRN (07:24)
[2023-03-03 07:30] LABS: ABG BASE EXCESS 0.9 mmol/L; ABG HCO3 27.3 mmol/L; ABG PCO2 51.4 mmHg (35.0-45.0); ABG PH 7.343 (7.350-7.450); ABG PO2 106.4 mmHg (75.0-100.0); ABG SITE RIGHT RADIAL; ABG TOTAL HEMOGLOBIN 11.6 G/dL (13.5-18.0); COHb 0.5 % (0.5-1.5); MetHb 0.2 % (0.0-1.5)
[2023-03-03] MEDS: FLUTICASONE/VILANTEROL 1 EACH BLST.W.DEV INH SCH (08:41)
[2023-03-03] MEDS: CALCITRIOL 0.25 MCG CAPSULE PO SCH (08:54)
[2023-03-03] MEDS: LIOTHYRONINE SODIUM 25 MCG TABLET PO SCH (08:54)
[2023-03-03] MEDS: ASPIRIN EC 81 MG TABLET.DR PO SCH (08:54)
[2023-03-03] MEDS: MULTIVITAMINS,THERAPEUTIC TABLET PO SCH (08:54)
[2023-03-03] MEDS: GABAPENTIN 300 MG CAPSULE PO SCH ×2 (08:54→22:00)
[2023-03-03] MEDS: FOLIC ACID 1 MG TABLET PO SCH (08:55)
[2023-03-03] MEDS: EMPAGLIFLOZIN 25 MG TABLET PO SCH (08:55)
[2023-03-03] MEDS: PROTEIN SUPPLEMENT (PROSTAT) 30 ML LIQUID GT SCH ×2 (08:56→17:12)
[2023-03-03] MEDS: APIXABAN 5 MG TABLET NG SCH ×2 (08:56→17:12)
[2023-03-03 09:07] LABS: A/G RATIO 0.6 (0.7-1.7); ALBUMIN 2.3 g/dL (2.9-4.4); ALPHA-1-GLOBULIN 0.5 g/dL (0.0-0.4); ALPHA-2-GLOBULIN 1.1 g/dL (0.4-1.0); BETA GLOBULIN 1.1 g/dL (0.7-1.3); GAMMA GLOBULIN 1.2 g/dL (0.4-1.8); GLOBULIN, TOTAL 3.9 g/dL (2.2-3.9); M-SPIKE Not Observed g/dL (Not Observed)
[2023-03-03] MEDS: CLOTRIMAZOLE 1% CREAM 30 GM TUBE TOP SCH ×2 (09:07→17:13)
[2023-03-03] MEDS: GLIMEPIRIDE 2 MG TABLET PO SCH (17:14)
[2023-03-03] MEDS: SIMVASTATIN 10 MG TABLET PO SCH (22:33)
[2023-03-03] MEDS: ACETAMINOPHEN 325 MG TABLET PO PRN (23:42)
[2023-03-04] VITALS (24 sets, daily range): BP systolic 88–138; BP diastolic 48–79; TEMP 98.3–100; O2SAT 91–98
[2023-03-04] MEDS: CHLORHEXIDINE GLUCONATE 15 ML MOUTHWASH MM SCH ×5 (04:48→20:21)
[2023-03-04] MEDS: CEFEPIME HCL 2 G in IV DEXTROSE 5% 100 ML IV SCH ×2 (05:05→17:00)
[2023-03-04] MEDS: LEVOTHYROXINE SODIUM 200 MCG TABLET PO SCH (05:11)
[2023-03-04 05:14] LABS: BASOPHILS % (AUTO) 0.7 % (0.0-2.0); EOSINOPHILS # (AUTO) 0.4 K/uL (0.0-0.7); EOSINOPHILS % (AUTO) 6.4 % (0.0-7.0); HEMATOCRIT 32.3 % (36.7-47.1); HEMOGLOBIN 10.2 g/dL (12.5-16.3); LYMPHOCYTES # (AUTO) 0.6 K/uL (0.8-4.8); LYMPHOCYTES % (AUTO) 8.5 % (20.5-51.5); MEAN CORPUSCULAR HEMOGLOBIN 26.4 uug (23.8-33.4); MEAN CORPUSCULAR HGB CONC 32 g/dL (32.5-36.3); MEAN CORPUSCULAR VOLUME 83.9 fL (73.0-96.2); MONOCYTES # (AUTO) 0.6 K/uL (0.1-1.30); MONOCYTES % (AUTO) 8.7 % (0.0-11.0); NEUTROPHILS # (AUTO) 5.3 K/uL (1.8-8.9); NEUTROPHILS % (AUTO) 75.7 % (38.5-71.5); PLATELET COUNT (AUTO) 177 K/uL (152-348); RED BLOOD CELL COUNT(AUTO) 3.85 MIL/uL (4.06-5.63); RED CELL DISTRIBUTION WIDTH 17.2 % (12.1-16.2)
[2023-03-04 05:21] LABS: DIFFERENTIAL COMMENT 1
[2023-03-04 05:28] LABS: CALCIUM 8.5 mg/dL (8.5-10.1); CARBON DIOXIDE 28 mmol/L (21-32); CHLORIDE 120 mmol/L (98-107); CREATININE 1.6 mg/dL (0.6-1.3); GLUCOSE 99 mg/dL (74-106); MAGNESIUM 3.2 mg/dL (1.8-2.4); PHOSPHOROUS 3.3 mg/dL (2.5-4.9); UREA NITROGEN, BLOOD 50 mg/dL (7-18)
[2023-03-04 05:44] LABS: SODIUM SERUM 156 mmol/L (136-145)
[2023-03-04 06:07] LABS: ABG BASE EXCESS -0.1 mmol/L; ABG HCO3 25.6 mmol/L; ABG PCO2 46.2 mmHg (35.0-45.0); ABG PH 7.361 (7.350-7.450); ABG PO2 150.6 mmHg (75.0-100.0); ABG SITE LEFT RADIAL; ABG TOTAL HEMOGLOBIN 11.2 G/dL (13.5-18.0); COHb 0.4 % (0.5-1.5); MetHb 0.4 % (0.0-1.5); O2Hb 98.3 % (94.0-97.0); VENT MODE BIPAP
[2023-03-04] MEDS: ASPIRIN EC 81 MG TABLET.DR PO SCH (08:39)
[2023-03-04] MEDS: MULTIVITAMINS,THERAPEUTIC TABLET PO SCH (08:39)
[2023-03-04] MEDS: GABAPENTIN 300 MG CAPSULE PO SCH ×2 (08:39→20:53)
[2023-03-04] MEDS: FOLIC ACID 1 MG TABLET PO SCH (08:40)
[2023-03-04] MEDS: APIXABAN 5 MG TABLET NG SCH ×2 (08:40→16:05)
[2023-03-04] MEDS: FLUTICASONE/VILANTEROL 1 EACH BLST.W.DEV INH SCH (08:43)
[2023-03-04] MEDS: EMPAGLIFLOZIN 25 MG TABLET PO SCH (08:44)
[2023-03-04] MEDS: CALCITRIOL 0.25 MCG CAPSULE PO SCH (08:44)
[2023-03-04] MEDS: LIOTHYRONINE SODIUM 25 MCG TABLET PO SCH (08:45)
[2023-03-04] MEDS: PROTEIN SUPPLEMENT (PROSTAT) 30 ML LIQUID GT SCH ×2 (08:46→16:01)
[2023-03-04] MEDS: CLOTRIMAZOLE 1% CREAM 30 GM TUBE TOP SCH ×2 (08:48→16:04)
[2023-03-04] MEDS ORDERED: VANCOMYCIN IV 2,000 MG in IV DEXTROSE 5% 500 ML IV ONE (10:30)
[2023-03-04] MEDS: GLIMEPIRIDE 2 MG TABLET PO SCH (17:03)
[2023-03-04] MEDS: SIMVASTATIN 10 MG TABLET PO SCH (20:53)
[2023-03-05] VITALS (26 sets, daily range): BP systolic 103–155; BP diastolic 51–95; TEMP 99.2–99.6; O2SAT 95–99
[2023-03-05] MEDS: CHLORHEXIDINE GLUCONATE 15 ML MOUTHWASH MM SCH ×6 (00:05→20:26)
[2023-03-05] MEDS: ACETAMINOPHEN 325 MG TABLET PO PRN ×2 (04:14→16:52)
[2023-03-05 05:01] LABS: BASOPHILS # (AUTO) 0.1 K/UL (0.0-0.2); BASOPHILS % (AUTO) 1.2 % (0.0-2.0); EOSINOPHILS # (AUTO) 0.4 K/uL (0.0-0.7); EOSINOPHILS % (AUTO) 5.1 % (0.0-7.0); HEMATOCRIT 32.6 % (36.7-47.1); LYMPHOCYTES # (AUTO) 0.8 K/uL (0.8-4.8); MEAN CORPUSCULAR HEMOGLOBIN 26.1 uug (23.8-33.4); MEAN CORPUSCULAR HGB CONC 31 g/dL (32.5-36.3); MEAN CORPUSCULAR VOLUME 85.1 fL (73.0-96.2); MONOCYTES # (AUTO) 0.7 K/uL (0.1-1.30); MONOCYTES % (AUTO) 8.4 % (0.0-11.0); NEUTROPHILS % (AUTO) 75.3 % (38.5-71.5); PLATELET COUNT (AUTO) 188 K/uL (152-348); RED BLOOD CELL COUNT(AUTO) 3.83 MIL/uL (4.06-5.63); RED CELL DISTRIBUTION WIDTH 17.6 % (12.1-16.2)
[2023-03-05 05:03] LABS: DIFFERENTIAL COMMENT 1
[2023-03-05] MEDS: CEFEPIME HCL 2 G in IV DEXTROSE 5% 100 ML IV SCH ×2 (05:39→16:54)
[2023-03-05 05:49] LABS: CALCIUM 8.6 mg/dL (8.5-10.1); CARBON DIOXIDE 28 mmol/L (21-32); CHLORIDE 123 mmol/L (98-107); CREATININE 1.7 mg/dL (0.6-1.3); GLUCOSE 100 mg/dL (74-106); PHOSPHOROUS 3.5 mg/dL (2.5-4.9); POTASSIUM 3.9 mmol/L (3.5-5.1); UREA NITROGEN, BLOOD 42 mg/dL (7-18); VANCOMYCIN,RANDOM 17.8 ug/mL (20.0-30.0)
[2023-03-05 05:52] LABS: SODIUM SERUM 157 mmol/L (136-145)
[2023-03-05] MEDS: LEVOTHYROXINE SODIUM 200 MCG TABLET PO SCH (06:45)
[2023-03-05 07:55] LABS: ABG BASE EXCESS 0.2 mmol/L; ABG HCO3 27.4 mmol/L; ABG PCO2 57.2 mmHg (35.0-45.0); ABG PH 7.299 (7.350-7.450); ABG PO2 101.9 mmHg (75.0-100.0); ABG SITE RIGHT RADIAL; ABG TOTAL HEMOGLOBIN 11.6 G/dL (13.5-18.0); COHb 0.7 % (0.5-1.5); MetHb 0.1 % (0.0-1.5); O2Hb 96.4 % (94.0-97.0)
[2023-03-05] MEDS: MULTIVITAMINS,THERAPEUTIC TABLET PO SCH (09:32)
[2023-03-05] MEDS: FOLIC ACID 1 MG TABLET PO SCH (09:32)
[2023-03-05] MEDS: GABAPENTIN 300 MG CAPSULE PO SCH ×2 (09:32→20:32)
[2023-03-05] MEDS: ASPIRIN EC 81 MG TABLET.DR PO SCH (09:32)
[2023-03-05] MEDS: APIXABAN 5 MG TABLET NG SCH ×2 (09:33→16:53)
[2023-03-05] MEDS: EMPAGLIFLOZIN 25 MG TABLET PO SCH (09:35)
[2023-03-05] MEDS: CALCITRIOL 0.25 MCG CAPSULE PO SCH (09:35)
[2023-03-05] MEDS: FLUTICASONE/VILANTEROL 1 EACH BLST.W.DEV INH SCH (09:35)
[2023-03-05] MEDS: LIOTHYRONINE SODIUM 25 MCG TABLET PO SCH (09:35)
[2023-03-05] MEDS: CLOTRIMAZOLE 1% CREAM 30 GM TUBE TOP SCH ×2 (09:38→16:55)
[2023-03-05] MEDS: PROTEIN SUPPLEMENT (PROSTAT) 30 ML LIQUID GT SCH ×2 (09:38→16:54)
[2023-03-05] MEDS: IV D5W 1000ML 1,000 ML IV SCH ×2 (09:39→18:00)
[2023-03-05] MEDS ORDERED: VANCOMYCIN IV 1,750 MG in IV DEXTROSE 5% 500 ML IV SCH (10:00)
[2023-03-05] MEDS: GLIMEPIRIDE 2 MG TABLET PO SCH (16:55)
[2023-03-05] MEDS: SIMVASTATIN 10 MG TABLET PO SCH (20:32)
[2023-03-06] VITALS (24 sets, daily range): BP systolic 90–155; BP diastolic 51–115; TEMP 98–100.5; O2SAT 95–100
[2023-03-06] MEDS: CHLORHEXIDINE GLUCONATE 15 ML MOUTHWASH MM SCH ×6 (04:00→19:52)
[2023-03-06] MEDS: IV D5W 1000ML 1,000 ML IV SCH ×2 (04:29→14:47)
[2023-03-06] MEDS: ACETAMINOPHEN 325 MG TABLET PO PRN ×3 (04:31→14:12)
[2023-03-06] MEDS: CEFEPIME HCL 2 G in IV DEXTROSE 5% 100 ML IV SCH ×2 (05:45→18:37)
[2023-03-06 06:02] LABS: BASOPHILS # (AUTO) 0.1 K/UL (0.0-0.2); BASOPHILS % (AUTO) 1.7 % (0.0-2.0); EOSINOPHILS # (AUTO) 0.5 K/uL (0.0-0.7); EOSINOPHILS % (AUTO) 6.7 % (0.0-7.0); HEMATOCRIT 29.6 % (36.7-47.1); HEMOGLOBIN 8.8 g/dL (12.5-16.3); LYMPHOCYTES # (AUTO) 0.6 K/uL (0.8-4.8); LYMPHOCYTES % (AUTO) 9.1 % (20.5-51.5); MEAN CORPUSCULAR HEMOGLOBIN 26.5 uug (23.8-33.4); MEAN CORPUSCULAR HGB CONC 30 g/dL (32.5-36.3); MEAN CORPUSCULAR VOLUME 89.2 fL (73.0-96.2); MONOCYTES # (AUTO) 0.4 K/uL (0.1-1.30); MONOCYTES % (AUTO) 5.2 % (0.0-11.0); NEUTROPHILS # (AUTO) 5.3 K/uL (1.8-8.9); NEUTROPHILS % (AUTO) 77.3 % (38.5-71.5); PLATELET COUNT (AUTO) 168 K/uL (152-348); RED BLOOD CELL COUNT(AUTO) 3.32 MIL/uL (4.06-5.63); RED CELL DISTRIBUTION WIDTH 17.6 % (12.1-16.2); WHITE BLOOD COUNT (AUTO) 6.9 K/uL (3.6-10.2)
[2023-03-06 06:11] LABS: DIFFERENTIAL COMMENT 1
[2023-03-06] MEDS: LEVOTHYROXINE SODIUM 200 MCG TABLET PO SCH (06:36)
[2023-03-06 07:40] LABS: CALCIUM 8.6 mg/dL (8.5-10.1); CARBON DIOXIDE 24 mmol/L (21-32); CHLORIDE 119 mmol/L (98-107); CREATININE 1.8 mg/dL (0.6-1.3); GLUCOSE 133 mg/dL (74-106); PHOSPHOROUS 4.1 mg/dL (2.5-4.9); POTASSIUM 4.1 mmol/L (3.5-5.1); SODIUM SERUM 153 mmol/L (136-145); UREA NITROGEN, BLOOD 49 mg/dL (7-18)
[2023-03-06 07:48] LABS: ABG BASE EXCESS 0.2 mmol/L; ABG HCO3 26.3 mmol/L; ABG PCO2 48.1 mmHg (35.0-45.0); ABG PH 7.356 (7.350-7.450); ABG PO2 76.7 mmHg (75.0-100.0); ABG SITE LEFT RADIAL; ABG TOTAL HEMOGLOBIN 14.7 G/dL (13.5-18.0); COHb 1.3 % (0.5-1.5); MetHb 0.2 % (0.0-1.5); O2Hb 93.4 % (94.0-97.0); VENT MODE Nasal Cannula
[2023-03-06] MEDS: MINERAL OIL/PETROLAT OPHT OINT 3.5 GM TUBE EACHEYE SCH ×3 (08:21→18:37)
[2023-03-06] MEDS: FLUTICASONE/VILANTEROL 1 EACH BLST.W.DEV INH SCH (08:40)
[2023-03-06] MEDS: APIXABAN 5 MG TABLET NG SCH ×2 (08:40→17:00)
[2023-03-06] MEDS: MULTIVITAMINS,THERAPEUTIC TABLET PO SCH (08:40)
[2023-03-06] MEDS: PROTEIN SUPPLEMENT (PROSTAT) 30 ML LIQUID GT SCH ×2 (08:40→18:37)
[2023-03-06] MEDS: FOLIC ACID 1 MG TABLET PO SCH (08:41)
[2023-03-06] MEDS: GABAPENTIN 300 MG CAPSULE PO SCH ×2 (08:41→20:31)
[2023-03-06] MEDS: ASPIRIN EC 81 MG TABLET.DR PO SCH (08:41)
[2023-03-06] MEDS: LIOTHYRONINE SODIUM 25 MCG TABLET PO SCH (08:41)
[2023-03-06] MEDS: CALCITRIOL 0.25 MCG CAPSULE PO SCH (08:41)
[2023-03-06] MEDS: EMPAGLIFLOZIN 25 MG TABLET PO SCH (08:41)
[2023-03-06] MEDS: CLOTRIMAZOLE 1% CREAM 30 GM TUBE TOP SCH ×2 (08:46→18:38)
[2023-03-06] MEDS: GLIMEPIRIDE 2 MG TABLET PO SCH (18:37)
[2023-03-06] MEDS: SIMVASTATIN 10 MG TABLET PO SCH (20:31)
[2023-03-07] VITALS (26 sets, daily range): BP systolic 93–138; BP diastolic 21–80; TEMP 97.7–98.5; O2SAT 95–98
[2023-03-07] MEDS: CHLORHEXIDINE GLUCONATE 15 ML MOUTHWASH MM SCH ×7 (00:03→23:38)
[2023-03-07] MEDS: MINERAL OIL/PETROLAT OPHT OINT 3.5 GM TUBE EACHEYE SCH ×5 (00:04→23:38)
[2023-03-07] MEDS: IV D5W 1000ML 1,000 ML IV SCH ×3 (00:05→23:36)
[2023-03-07] MEDS ORDERED: ACETAMINOPHEN 650 MG SUPP.RECT RC PRN (01:30)
[2023-03-07] MEDS ORDERED: KETOROLAC TROMETHAMINE 15 MG INJ IM ONE (05:45)
[2023-03-07 06:11] LABS: BASOPHILS % (AUTO) 0.6 % (0.0-2.0); EOSINOPHILS # (AUTO) 0.5 K/uL (0.0-0.7); EOSINOPHILS % (AUTO) 7.2 % (0.0-7.0); HEMATOCRIT 30.5 % (36.7-47.1); HEMOGLOBIN 9.4 g/dL (12.5-16.3); LYMPHOCYTES # (AUTO) 0.9 K/uL (0.8-4.8); LYMPHOCYTES % (AUTO) 12.1 % (20.5-51.5); MEAN CORPUSCULAR HEMOGLOBIN 26.2 uug (23.8-33.4); MEAN CORPUSCULAR HGB CONC 31 g/dL (32.5-36.3); MEAN CORPUSCULAR VOLUME 85.5 fL (73.0-96.2); MONOCYTES # (AUTO) 0.6 K/uL (0.1-1.30); MONOCYTES % (AUTO) 8.7 % (0.0-11.0); NEUTROPHILS % (AUTO) 71.4 % (38.5-71.5); PLATELET COUNT (AUTO) 160 K/uL (152-348); RED BLOOD CELL COUNT(AUTO) 3.57 MIL/uL (4.06-5.63); RED CELL DISTRIBUTION WIDTH 16.8 % (12.1-16.2); WHITE BLOOD COUNT (AUTO) 7.1 K/uL (3.6-10.2)
[2023-03-07] MEDS: CEFEPIME HCL 2 G in IV DEXTROSE 5% 100 ML IV SCH ×2 (06:18→17:29)
[2023-03-07] MEDS: LEVOTHYROXINE SODIUM 200 MCG TABLET PO SCH (06:21)
[2023-03-07 06:46] LABS: DIFFERENTIAL COMMENT 1
[2023-03-07 06:58] LABS: CALCIUM 8.4 mg/dL (8.5-10.1); CARBON DIOXIDE 25 mmol/L (21-32); CHLORIDE 119 mmol/L (98-107); CREATININE 1.9 mg/dL (0.6-1.3); GLUCOSE 99 mg/dL (74-106); MAGNESIUM 3.2 mg/dL (1.8-2.4); PHOSPHOROUS 4.5 mg/dL (2.5-4.9); POTASSIUM 3.8 mmol/L (3.5-5.1); SODIUM SERUM 152 mmol/L (136-145); UREA NITROGEN, BLOOD 56 mg/dL (7-18); VANCOMYCIN,RANDOM 15.8 ug/mL (20.0-30.0)
[2023-03-07] MEDS ORDERED: VANCOMYCIN IV 1,250 MG in IV DEXTROSE 5% 250 ML IV ONE (08:00)
[2023-03-07] MEDS: PROTEIN SUPPLEMENT (PROSTAT) 30 ML LIQUID GT SCH ×2 (08:41→17:26)
[2023-03-07] MEDS: MULTIVITAMINS,THERAPEUTIC TABLET PO SCH (08:43)
[2023-03-07] MEDS: ASPIRIN EC 81 MG TABLET.DR PO SCH (08:43)
[2023-03-07] MEDS: FOLIC ACID 1 MG TABLET PO SCH (08:43)
[2023-03-07] MEDS: GABAPENTIN 300 MG CAPSULE PO SCH ×2 (08:43→20:17)
[2023-03-07] MEDS: APIXABAN 5 MG TABLET NG SCH ×2 (08:46→17:30)
[2023-03-07] MEDS: EMPAGLIFLOZIN 25 MG TABLET PO SCH (08:47)
[2023-03-07] MEDS: LIOTHYRONINE SODIUM 25 MCG TABLET PO SCH (08:48)
[2023-03-07] MEDS: CALCITRIOL 0.25 MCG CAPSULE PO SCH (08:48)
[2023-03-07] MEDS: FLUTICASONE/VILANTEROL 1 EACH BLST.W.DEV INH SCH (08:49)
[2023-03-07] MEDS: CLOTRIMAZOLE 1% CREAM 30 GM TUBE TOP SCH ×2 (08:50→17:26)
[2023-03-07] MEDS: JEVITY 1.2 1000 ML LIQUID GT PRN (15:00)
[2023-03-07] MEDS: ACETAMINOPHEN 325 MG TABLET PO PRN (15:10)
[2023-03-07] MEDS: GLIMEPIRIDE 2 MG TABLET PO SCH (17:29)
[2023-03-07] MEDS: SIMVASTATIN 10 MG TABLET PO SCH (20:17)
[2023-03-08] VITALS (22 sets, daily range): BP systolic 88–163; BP diastolic 40–103; TEMP 98.1–98.9; O2SAT 93–98
[2023-03-08] MEDS: CHLORHEXIDINE GLUCONATE 15 ML MOUTHWASH MM SCH ×5 (04:02→20:05)
[2023-03-08 04:46] LABS: BASOPHILS % (AUTO) 0.6 % (0.0-2.0); EOSINOPHILS # (AUTO) 0.5 K/uL (0.0-0.7); EOSINOPHILS % (AUTO) 7.6 % (0.0-7.0); HEMATOCRIT 30.7 % (36.7-47.1); HEMOGLOBIN 9.7 g/dL (12.5-16.3); LYMPHOCYTES # (AUTO) 0.6 K/uL (0.8-4.8); LYMPHOCYTES % (AUTO) 9.9 % (20.5-51.5); MEAN CORPUSCULAR HEMOGLOBIN 26.6 uug (23.8-33.4); MEAN CORPUSCULAR HGB CONC 32 g/dL (32.5-36.3); MEAN CORPUSCULAR VOLUME 84.2 fL (73.0-96.2); MONOCYTES # (AUTO) 0.6 K/uL (0.1-1.30); MONOCYTES % (AUTO) 8.9 % (0.0-11.0); NEUTROPHILS # (AUTO) 4.7 K/uL (1.8-8.9); PLATELET COUNT (AUTO) 154 K/uL (152-348); RED BLOOD CELL COUNT(AUTO) 3.65 MIL/uL (4.06-5.63); RED CELL DISTRIBUTION WIDTH 16.2 % (12.1-16.2); WHITE BLOOD COUNT (AUTO) 6.5 K/uL (3.6-10.2)
[2023-03-08 05:05] LABS: CALCIUM 7.9 mg/dL (8.5-10.1); CARBON DIOXIDE 26 mmol/L (21-32); CHLORIDE 115 mmol/L (98-107); CREATININE 1.6 mg/dL (0.6-1.3); GLUCOSE 166 mg/dL (74-106); MAGNESIUM 2.8 mg/dL (1.8-2.4); PHOSPHOROUS 4.2 mg/dL (2.5-4.9); POTASSIUM 3.9 mmol/L (3.5-5.1); SODIUM SERUM 149 mmol/L (136-145); UREA NITROGEN, BLOOD 47 mg/dL (7-18); VANCOMYCIN,RANDOM 19.3 ug/mL (20.0-30.0)
[2023-03-08 05:08] LABS: DIFFERENTIAL COMMENT 1
[2023-03-08] MEDS: MINERAL OIL/PETROLAT OPHT OINT 3.5 GM TUBE EACHEYE SCH ×3 (05:30→17:56)
[2023-03-08] MEDS: LEVOTHYROXINE SODIUM 200 MCG TABLET PO SCH (05:32)
[2023-03-08] MEDS: CEFEPIME HCL 2 G in IV DEXTROSE 5% 100 ML IV SCH ×2 (05:32→17:54)
[2023-03-08] MEDS: IV D5W 1000ML 1,000 ML IV SCH ×2 (05:44→15:56)
[2023-03-08 07:25] LABS: ABG BASE EXCESS -2.6 mmol/L; ABG HCO3 22.8 mmol/L; ABG PCO2 41.6 mmHg (35.0-45.0); ABG PH 7.356 (7.350-7.450); ABG PO2 94.1 mmHg (75.0-100.0); ABG SITE RIGHT RADIAL; ABG TOTAL HEMOGLOBIN 10.7 G/dL (13.5-18.0); COHb 0.6 % (0.5-1.5); MetHb 0.1 % (0.0-1.5); O2Hb 96.1 % (94.0-97.0)
[2023-03-08] MEDS: FLUTICASONE/VILANTEROL 1 EACH BLST.W.DEV INH SCH (08:56)
[2023-03-08] MEDS: LIOTHYRONINE SODIUM 25 MCG TABLET PO SCH (08:58)
[2023-03-08] MEDS: FOLIC ACID 1 MG TABLET PO SCH (08:59)
[2023-03-08] MEDS: ASPIRIN EC 81 MG TABLET.DR PO SCH (08:59)
[2023-03-08] MEDS ORDERED: VANCOMYCIN IV 1,250 MG in IV DEXTROSE 5% 250 ML IV ONE (09:00)
[2023-03-08] MEDS: EMPAGLIFLOZIN 25 MG TABLET PO SCH (09:00)
[2023-03-08] MEDS: GABAPENTIN 300 MG CAPSULE PO SCH ×2 (09:00→20:05)
[2023-03-08] MEDS: CALCITRIOL 0.25 MCG CAPSULE PO SCH (09:01)
[2023-03-08] MEDS: APIXABAN 5 MG TABLET NG SCH ×2 (09:01→17:29)
[2023-03-08] MEDS: MULTIVITAMINS,THERAPEUTIC TABLET PO SCH (09:01)
[2023-03-08] MEDS: PROTEIN SUPPLEMENT (PROSTAT) 30 ML LIQUID GT SCH ×2 (09:18→17:19)
[2023-03-08] MEDS: CLOTRIMAZOLE 1% CREAM 30 GM TUBE TOP SCH ×2 (09:32→17:24)
[2023-03-08] MEDS: GLIMEPIRIDE 2 MG TABLET PO SCH (17:53)
[2023-03-08] MEDS: SIMVASTATIN 10 MG TABLET PO SCH (20:05)
[2023-03-09] VITALS (26 sets, daily range): BP systolic 107–141; BP diastolic 44–72; TEMP 97.5–98.6; O2SAT 91–98
[2023-03-09] MEDS: MINERAL OIL/PETROLAT OPHT OINT 3.5 GM TUBE EACHEYE SCH ×5 (00:47→23:18)
[2023-03-09] MEDS: CHLORHEXIDINE GLUCONATE 15 ML MOUTHWASH MM SCH ×7 (00:47→23:11)
[2023-03-09] MEDS: IV D5W 1000ML 1,000 ML IV SCH ×3 (00:48→22:16)
[2023-03-09 04:56] LABS: BASOPHILS % (AUTO) 0.6 % (0.0-2.0); EOSINOPHILS # (AUTO) 0.4 K/uL (0.0-0.7); EOSINOPHILS % (AUTO) 6.3 % (0.0-7.0); HEMATOCRIT 30.4 % (36.7-47.1); HEMOGLOBIN 9.7 g/dL (12.5-16.3); LYMPHOCYTES # (AUTO) 0.8 K/uL (0.8-4.8); LYMPHOCYTES % (AUTO) 11.1 % (20.5-51.5); MEAN CORPUSCULAR HEMOGLOBIN 26.5 uug (23.8-33.4); MEAN CORPUSCULAR HGB CONC 32 g/dL (32.5-36.3); MEAN CORPUSCULAR VOLUME 83.4 fL (73.0-96.2); MONOCYTES # (AUTO) 0.6 K/uL (0.1-1.30); MONOCYTES % (AUTO) 8.3 % (0.0-11.0); NEUTROPHILS % (AUTO) 73.7 % (38.5-71.5); PLATELET COUNT (AUTO) 160 K/uL (152-348); RED BLOOD CELL COUNT(AUTO) 3.65 MIL/uL (4.06-5.63); RED CELL DISTRIBUTION WIDTH 15.7 % (12.1-16.2); WHITE BLOOD COUNT (AUTO) 6.8 K/uL (3.6-10.2)
[2023-03-09 05:04] LABS: DIFFERENTIAL COMMENT 1
[2023-03-09 05:17] LABS: CALCIUM 8.2 mg/dL (8.5-10.1); CARBON DIOXIDE 26 mmol/L (21-32); CHLORIDE 114 mmol/L (98-107); CREATININE 1.4 mg/dL (0.6-1.3); GLUCOSE 137 mg/dL (74-106); MAGNESIUM 2.8 mg/dL (1.8-2.4); PHOSPHOROUS 3.4 mg/dL (2.5-4.9); POTASSIUM 3.7 mmol/L (3.5-5.1); SODIUM SERUM 148 mmol/L (136-145); UREA NITROGEN, BLOOD 38 mg/dL (7-18)
[2023-03-09] MEDS: CEFEPIME HCL 2 G in IV DEXTROSE 5% 100 ML IV SCH ×2 (05:30→16:45)
[2023-03-09] MEDS: LEVOTHYROXINE SODIUM 200 MCG TABLET PO SCH (06:10)
[2023-03-09 07:24] LABS: ABG BASE EXCESS -2.1 mmol/L; ABG HCO3 23.5 mmol/L; ABG PCO2 43.8 mmHg (35.0-45.0); ABG PH 7.348 (7.350-7.450); ABG PO2 95.9 mmHg (75.0-100.0); ABG SITE RIGHT RADIAL; ABG TOTAL HEMOGLOBIN 11.7 G/dL (13.5-18.0); COHb 0.8 % (0.5-1.5); MetHb 0.2 % (0.0-1.5); O2Hb 96.1 % (94.0-97.0)
[2023-03-09] MEDS: ASPIRIN EC 81 MG TABLET.DR PO SCH (08:19)
[2023-03-09] MEDS: FOLIC ACID 1 MG TABLET PO SCH (08:19)
[2023-03-09] MEDS: GABAPENTIN 300 MG CAPSULE PO SCH ×2 (08:19→20:00)
[2023-03-09] MEDS: CALCITRIOL 0.25 MCG CAPSULE PO SCH (08:20)
[2023-03-09] MEDS: MULTIVITAMINS,THERAPEUTIC TABLET PO SCH (08:20)
[2023-03-09] MEDS: EMPAGLIFLOZIN 25 MG TABLET PO SCH (08:21)
[2023-03-09] MEDS: LIOTHYRONINE SODIUM 25 MCG TABLET PO SCH (08:21)
[2023-03-09] MEDS: PROTEIN SUPPLEMENT (PROSTAT) 30 ML LIQUID GT SCH ×2 (08:30→16:42)
[2023-03-09] MEDS: CLOTRIMAZOLE 1% CREAM 30 GM TUBE TOP SCH ×2 (08:31→16:43)
[2023-03-09] MEDS: FLUTICASONE/VILANTEROL 1 EACH BLST.W.DEV INH SCH (08:32)
[2023-03-09] MEDS: APIXABAN 5 MG TABLET NG SCH ×2 (09:00→16:41)
[2023-03-09] MEDS ORDERED: VANCOMYCIN IV 1,250 MG in IV DEXTROSE 5% 250 ML IV ONE (12:00)
[2023-03-09] MEDS: ACETAMINOPHEN 325 MG TABLET PO PRN ×2 (16:44→20:00)
[2023-03-09] MEDS: GLIMEPIRIDE 2 MG TABLET PO SCH (16:45)
[2023-03-09] MEDS: SIMVASTATIN 10 MG TABLET PO SCH (20:00)
[2023-03-10] VITALS (27 sets, daily range): BP systolic 126–160; BP diastolic 53–80; TEMP 98.1–98.7; O2SAT 88–98
[2023-03-10] MEDS: CHLORHEXIDINE GLUCONATE 15 ML MOUTHWASH MM SCH ×5 (05:01→20:28)
[2023-03-10] MEDS: MINERAL OIL/PETROLAT OPHT OINT 3.5 GM TUBE EACHEYE SCH ×3 (05:02→17:40)
[2023-03-10] MEDS: CEFEPIME HCL 2 G in IV DEXTROSE 5% 100 ML IV SCH ×2 (05:02→17:42)
[2023-03-10 05:15] LABS: EOSINOPHILS # (AUTO) 6.2 K/uL (0.0-0.7); HEMATOCRIT 30.2 % (36.7-47.1); HEMOGLOBIN 9.6 g/dL (12.5-16.3); LYMPHOCYTES # (AUTO) 0.7 K/uL (0.8-4.8); LYMPHOCYTES % (AUTO) 8.1 % (20.5-51.5); MEAN CORPUSCULAR HEMOGLOBIN 26.3 uug (23.8-33.4); MEAN CORPUSCULAR HGB CONC 32 g/dL (32.5-36.3); MEAN CORPUSCULAR VOLUME 83.1 fL (73.0-96.2); MONOCYTES # (AUTO) 0.2 K/uL (0.1-1.30); MONOCYTES % (AUTO) 2.3 % (0.0-11.0); NEUTROPHILS # (AUTO) 1.3 K/uL (1.8-8.9); NEUTROPHILS % (AUTO) 15.7 % (38.5-71.5); PLATELET COUNT (AUTO) 167 K/uL (152-348); RED BLOOD CELL COUNT(AUTO) 3.63 MIL/uL (4.06-5.63); RED CELL DISTRIBUTION WIDTH 15.8 % (12.1-16.2); WHITE BLOOD COUNT (AUTO) 8.4 K/uL (3.6-10.2)
[2023-03-10 05:26] LABS: DIFFERENTIAL COMMENT 1; EOSINOPHILS % (AUTO) 73.9 % (0.0-7.0)
[2023-03-10 05:28] LABS: CALCIUM 8.2 mg/dL (8.5-10.1); CARBON DIOXIDE 26 mmol/L (21-32); CHLORIDE 111 mmol/L (98-107); CREATININE 1.3 mg/dL (0.6-1.3); GLUCOSE 137 mg/dL (74-106); MAGNESIUM 2.6 mg/dL (1.8-2.4); PHOSPHOROUS 3.6 mg/dL (2.5-4.9); POTASSIUM 3.6 mmol/L (3.5-5.1); SODIUM SERUM 145 mmol/L (136-145); UREA NITROGEN, BLOOD 32 mg/dL (7-18); VANCOMYCIN,RANDOM 20.4 ug/mL (20.0-30.0)
[2023-03-10] MEDS: LEVOTHYROXINE SODIUM 200 MCG TABLET PO SCH (05:47)
[2023-03-10 06:28] LABS: BAND % (MANUAL) 4 % (0-10); EOSINOPHILS % (MANUAL) 10 % (0-8); LYMPHOCYTES % (MANUAL) 10 % (20-40); MONOCYTES % (MANUAL) 6 % (2-10)
[2023-03-10 06:29] LABS: NEUTROPHILS % (MANUAL) 70 % (42-75); PLATELET ESTIMATE ADEQUATE
[2023-03-10] MEDS: ACETAMINOPHEN 325 MG TABLET PO PRN ×2 (06:57→21:39)
[2023-03-10 07:33] LABS: ABG BASE EXCESS -1.4 mmol/L (-2.0-2.0); ABG HCO3 23.9 mmol/L (22.0-26.0); ABG PCO2 42.3 mmHg (35.0-48.0); ABG PO2 92.3 mmHg (75.0-100.0); ABG SITE RIGHT RADIAL; ABG TOTAL HEMOGLOBIN 10.9 G/dL (14.0-18.0); AaDO2 96.9 mmHg; COHb 0.6 % (0.0-3.9); MetHb 0.1 % (0.0-1.5); O2Hb 96.2 % (94.0-97.0)
[2023-03-10] MEDS: PROTEIN SUPPLEMENT (PROSTAT) 30 ML LIQUID GT SCH ×2 (09:57→16:46)
[2023-03-10] MEDS: FLUTICASONE/VILANTEROL 1 EACH BLST.W.DEV INH SCH (09:57)
[2023-03-10] MEDS: APIXABAN 5 MG TABLET NG SCH ×2 (09:59→16:44)
[2023-03-10] MEDS: LIOTHYRONINE SODIUM 25 MCG TABLET PO SCH (09:59)
[2023-03-10] MEDS: FOLIC ACID 1 MG TABLET PO SCH (10:01)
[2023-03-10] MEDS: ASPIRIN EC 81 MG TABLET.DR PO SCH (10:01)
[2023-03-10] MEDS: EMPAGLIFLOZIN 25 MG TABLET PO SCH (10:02)
[2023-03-10] MEDS: MULTIVITAMINS,THERAPEUTIC TABLET PO SCH (10:03)
[2023-03-10] MEDS: GABAPENTIN 300 MG CAPSULE PO SCH ×2 (10:03→20:28)
[2023-03-10] MEDS: CLOTRIMAZOLE 1% CREAM 30 GM TUBE TOP SCH ×2 (10:05→16:46)
[2023-03-10] MEDS: CALCITRIOL 0.25 MCG CAPSULE PO SCH (10:06)
[2023-03-10] MEDS ORDERED: REMEDY ESSENTIAL ZINC PASTE 113 GM TOP PRN (13:00)
[2023-03-10] MEDS ORDERED: VANCOMYCIN IV 1,250 MG in IV DEXTROSE 5% 250 ML IV ONE (14:00)
[2023-03-10] MEDS: IV D5W 1000ML 1,000 ML IV SCH (14:26)
[2023-03-10] MEDS: GLIMEPIRIDE 2 MG TABLET PO SCH (17:42)
[2023-03-10] MEDS: SIMVASTATIN 10 MG TABLET PO SCH (20:28)
[2023-03-11] VITALS (27 sets, daily range): BP systolic 131–155; BP diastolic 55–75; TEMP 97.5–99.5; O2SAT 94–99
[2023-03-11] MEDS: CHLORHEXIDINE GLUCONATE 15 ML MOUTHWASH MM SCH ×7 (00:23→23:57)
[2023-03-11] MEDS: MINERAL OIL/PETROLAT OPHT OINT 3.5 GM TUBE EACHEYE SCH ×5 (00:24→23:57)
[2023-03-11] MEDS: IV D5W 1000ML 1,000 ML IV SCH ×3 (02:05→17:07)
[2023-03-11] MEDS: diphenhydrAMINE 50 MG CAPSULE PO PRN ×2 (02:49→21:18)
[2023-03-11 04:58] LABS: BASOPHILS # (AUTO) 0.1 K/UL (0.0-0.2); BASOPHILS % (AUTO) 0.7 % (0.0-2.0); EOSINOPHILS # (AUTO) 0.5 K/uL (0.0-0.7); EOSINOPHILS % (AUTO) 5.5 % (0.0-7.0); HEMOGLOBIN 9.3 g/dL (12.5-16.3); LYMPHOCYTES # (AUTO) 0.8 K/uL (0.8-4.8); LYMPHOCYTES % (AUTO) 9.3 % (20.5-51.5); MEAN CORPUSCULAR HEMOGLOBIN 26.8 uug (23.8-33.4); MEAN CORPUSCULAR HGB CONC 32 g/dL (32.5-36.3); MEAN CORPUSCULAR VOLUME 83.2 fL (73.0-96.2); MONOCYTES # (AUTO) 0.7 K/uL (0.1-1.30); MONOCYTES % (AUTO) 8.5 % (0.0-11.0); NEUTROPHILS # (AUTO) 6.3 K/uL (1.8-8.9); PLATELET COUNT (AUTO) 164 K/uL (152-348); RED BLOOD CELL COUNT(AUTO) 3.49 MIL/uL (4.06-5.63); RED CELL DISTRIBUTION WIDTH 15.7 % (12.1-16.2); WHITE BLOOD COUNT (AUTO) 8.2 K/uL (3.6-10.2)
[2023-03-11 05:08] LABS: DIFFERENTIAL COMMENT 1
[2023-03-11 05:10] LABS: CALCIUM 8.3 mg/dL (8.5-10.1); CARBON DIOXIDE 26 mmol/L (21-32); CHLORIDE 110 mmol/L (98-107); CREATININE 1.2 mg/dL (0.6-1.3); GLUCOSE 166 mg/dL (74-106); MAGNESIUM 2.5 mg/dL (1.8-2.4); POTASSIUM 3.7 mmol/L (3.5-5.1); SODIUM SERUM 145 mmol/L (136-145); UREA NITROGEN, BLOOD 28 mg/dL (7-18); VANCOMYCIN,RANDOM 19.6 ug/mL (20.0-30.0)
[2023-03-11] MEDS: CEFEPIME HCL 2 G in IV DEXTROSE 5% 100 ML IV SCH ×3 (05:19→21:18)
[2023-03-11] MEDS: LEVOTHYROXINE SODIUM 200 MCG TABLET PO SCH (05:19)
[2023-03-11] MEDS: PROTEIN SUPPLEMENT (PROSTAT) 30 ML LIQUID GT SCH ×2 (08:00→16:00)
[2023-03-11] MEDS: LIOTHYRONINE SODIUM 25 MCG TABLET PO SCH (08:02)
[2023-03-11] MEDS: EMPAGLIFLOZIN 25 MG TABLET PO SCH (08:03)
[2023-03-11] MEDS: CALCITRIOL 0.25 MCG CAPSULE PO SCH (08:03)
[2023-03-11] MEDS: FLUTICASONE/VILANTEROL 1 EACH BLST.W.DEV INH SCH (08:04)
[2023-03-11] MEDS: ASPIRIN EC 81 MG TABLET.DR PO SCH (08:09)
[2023-03-11] MEDS: CLOTRIMAZOLE 1% CREAM 30 GM TUBE TOP SCH ×2 (08:09→16:01)
[2023-03-11] MEDS: GABAPENTIN 300 MG CAPSULE PO SCH ×2 (08:09→20:38)
[2023-03-11] MEDS: MULTIVITAMINS,THERAPEUTIC TABLET PO SCH (08:09)
[2023-03-11] MEDS: FOLIC ACID 1 MG TABLET PO SCH (08:09)
[2023-03-11] MEDS: APIXABAN 5 MG TABLET NG SCH ×2 (08:10→16:02)
[2023-03-11] MEDS ORDERED: VANCOMYCIN IV 1,250 MG in IV DEXTROSE 5% 250 ML IV ONE (09:00)
[2023-03-11] MEDS: GLIMEPIRIDE 2 MG TABLET PO SCH (17:02)
[2023-03-11] MEDS: SIMVASTATIN 10 MG TABLET PO SCH (20:38)
[2023-03-12] VITALS (29 sets, daily range): BP systolic 124–161; BP diastolic 47–86; TEMP 97.4–98.9; O2SAT 94–100
[2023-03-12] MEDS: IV D5W 1000ML 1,000 ML IV SCH ×3 (04:00→18:37)
[2023-03-12] MEDS: CHLORHEXIDINE GLUCONATE 15 ML MOUTHWASH MM SCH ×5 (04:05→20:21)
[2023-03-12 04:52] LABS: BASOPHILS # (AUTO) 0.1 K/UL (0.0-0.2); BASOPHILS % (AUTO) 0.8 % (0.0-2.0); EOSINOPHILS # (AUTO) 0.4 K/uL (0.0-0.7); EOSINOPHILS % (AUTO) 5.3 % (0.0-7.0); HEMATOCRIT 30.6 % (36.7-47.1); HEMOGLOBIN 9.7 g/dL (12.5-16.3); LYMPHOCYTES # (AUTO) 0.8 K/uL (0.8-4.8); LYMPHOCYTES % (AUTO) 10.1 % (20.5-51.5); MEAN CORPUSCULAR HEMOGLOBIN 26.1 uug (23.8-33.4); MEAN CORPUSCULAR HGB CONC 32 g/dL (32.5-36.3); MEAN CORPUSCULAR VOLUME 82.7 fL (73.0-96.2); MONOCYTES # (AUTO) 0.8 K/uL (0.1-1.30); MONOCYTES % (AUTO) 9.3 % (0.0-11.0); NEUTROPHILS # (AUTO) 6.1 K/uL (1.8-8.9); NEUTROPHILS % (AUTO) 74.5 % (38.5-71.5); PLATELET COUNT (AUTO) 201 K/uL (152-348); RED BLOOD CELL COUNT(AUTO) 3.71 MIL/uL (4.06-5.63); WHITE BLOOD COUNT (AUTO) 8.1 K/uL (3.6-10.2)
[2023-03-12 05:00] LABS: DIFFERENTIAL COMMENT 1
[2023-03-12 05:03] LABS: CALCIUM 8.5 mg/dL (8.5-10.1); CREATININE 1.1 mg/dL (0.6-1.3); MAGNESIUM 2.4 mg/dL (1.8-2.4); PHOSPHOROUS 3.6 mg/dL (2.5-4.9); POTASSIUM 3.7 mmol/L (3.5-5.1); VANCOMYCIN,RANDOM 16.9 ug/mL (20.0-30.0)
[2023-03-12] MEDS: CEFEPIME HCL 2 G in IV DEXTROSE 5% 100 ML IV SCH ×3 (05:05→21:49)
[2023-03-12] MEDS: MINERAL OIL/PETROLAT OPHT OINT 3.5 GM TUBE EACHEYE SCH ×3 (05:21→17:03)
[2023-03-12] MEDS: LEVOTHYROXINE SODIUM 200 MCG TABLET PO SCH (05:21)
[2023-03-12] MEDS: CALCITRIOL 0.25 MCG CAPSULE PO SCH (08:17)
[2023-03-12] MEDS: EMPAGLIFLOZIN 25 MG TABLET PO SCH (08:19)
[2023-03-12] MEDS: LIOTHYRONINE SODIUM 25 MCG TABLET PO SCH (08:21)
[2023-03-12] MEDS: FOLIC ACID 1 MG TABLET PO SCH (08:26)
[2023-03-12] MEDS: GABAPENTIN 300 MG CAPSULE PO SCH ×2 (08:26→20:22)
[2023-03-12] MEDS: MULTIVITAMINS,THERAPEUTIC TABLET PO SCH (08:26)
[2023-03-12] MEDS: ASPIRIN EC 81 MG TABLET.DR PO SCH (08:26)
[2023-03-12] MEDS: FLUTICASONE/VILANTEROL 1 EACH BLST.W.DEV INH SCH (08:28)
[2023-03-12] MEDS: CLOTRIMAZOLE 1% CREAM 30 GM TUBE TOP SCH ×2 (08:28→16:38)
[2023-03-12] MEDS: PROTEIN SUPPLEMENT (PROSTAT) 30 ML LIQUID GT SCH ×2 (08:31→16:37)
[2023-03-12] MEDS: APIXABAN 5 MG TABLET NG SCH ×2 (08:33→16:39)
[2023-03-12] MEDS ORDERED: VANCOMYCIN IV 1,250 MG in IV DEXTROSE 5% 250 ML IV ONE (12:00)
[2023-03-12] MEDS: GLIMEPIRIDE 2 MG TABLET PO SCH (17:01)
[2023-03-12] MEDS: SIMVASTATIN 10 MG TABLET PO SCH (20:22)
[2023-03-13] VITALS (26 sets, daily range): BP systolic 124–165; BP diastolic 54–87; TEMP 97.5–99.9; O2SAT 95–99
[2023-03-13] MEDS: CHLORHEXIDINE GLUCONATE 15 ML MOUTHWASH MM SCH ×7 (00:38→23:57)
[2023-03-13] MEDS: MINERAL OIL/PETROLAT OPHT OINT 3.5 GM TUBE EACHEYE SCH ×5 (00:38→23:58)
[2023-03-13 05:19] LABS: BASOPHILS # (AUTO) 0.1 K/UL (0.0-0.2); BASOPHILS % (AUTO) 0.9 % (0.0-2.0); EOSINOPHILS # (AUTO) 0.4 K/uL (0.0-0.7); EOSINOPHILS % (AUTO) 5.1 % (0.0-7.0); HEMOGLOBIN 9.3 g/dL (12.5-16.3); LYMPHOCYTES # (AUTO) 0.7 K/uL (0.8-4.8); LYMPHOCYTES % (AUTO) 8.1 % (20.5-51.5); MEAN CORPUSCULAR HEMOGLOBIN 26.7 uug (23.8-33.4); MEAN CORPUSCULAR HGB CONC 32 g/dL (32.5-36.3); MEAN CORPUSCULAR VOLUME 83.1 fL (73.0-96.2); MONOCYTES # (AUTO) 0.9 K/uL (0.1-1.30); MONOCYTES % (AUTO) 10.4 % (0.0-11.0); NEUTROPHILS # (AUTO) 6.2 K/uL (1.8-8.9); NEUTROPHILS % (AUTO) 75.5 % (38.5-71.5); PLATELET COUNT (AUTO) 210 K/uL (152-348); RED BLOOD CELL COUNT(AUTO) 3.49 MIL/uL (4.06-5.63); RED CELL DISTRIBUTION WIDTH 15.7 % (12.1-16.2); WHITE BLOOD COUNT (AUTO) 8.2 K/uL (3.6-10.2)
[2023-03-13 05:22] LABS: DIFFERENTIAL COMMENT 1
[2023-03-13 05:48] LABS: CALCIUM 8.1 mg/dL (8.5-10.1); CREATININE 1.2 mg/dL (0.6-1.3); MAGNESIUM 2.2 mg/dL (1.8-2.4); PHOSPHOROUS 4.3 mg/dL (2.5-4.9); POTASSIUM 4.2 mmol/L (3.5-5.1)
[2023-03-13] MEDS: IV D5W 1000ML 1,000 ML IV SCH ×2 (05:54→16:04)
[2023-03-13] MEDS: CEFEPIME HCL 2 G in IV DEXTROSE 5% 100 ML IV SCH (05:54)
[2023-03-13] MEDS: LEVOTHYROXINE SODIUM 200 MCG TABLET PO SCH (06:55)
[2023-03-13] MEDS: FOLIC ACID 1 MG TABLET PO SCH (08:17)
[2023-03-13] MEDS: ASPIRIN EC 81 MG TABLET.DR PO SCH (08:18)
[2023-03-13] MEDS: MULTIVITAMINS,THERAPEUTIC TABLET PO SCH (08:18)
[2023-03-13] MEDS: GABAPENTIN 300 MG CAPSULE PO SCH ×2 (08:18→21:07)
[2023-03-13] MEDS: CALCITRIOL 0.25 MCG CAPSULE PO SCH (08:19)
[2023-03-13] MEDS: EMPAGLIFLOZIN 25 MG TABLET PO SCH (08:19)
[2023-03-13] MEDS: LIOTHYRONINE SODIUM 25 MCG TABLET PO SCH (08:19)
[2023-03-13] MEDS: PROTEIN SUPPLEMENT (PROSTAT) 30 ML LIQUID GT SCH ×2 (08:20→16:04)
[2023-03-13] MEDS: APIXABAN 5 MG TABLET NG SCH (08:21)
[2023-03-13] MEDS: FLUTICASONE/VILANTEROL 1 EACH BLST.W.DEV INH SCH (08:22)
[2023-03-13] MEDS: CLOTRIMAZOLE 1% CREAM 30 GM TUBE TOP SCH ×2 (08:24→16:05)
[2023-03-13] MEDS ORDERED: APIXABAN 5 MG TABLET NG SCH (17:00)
[2023-03-13] MEDS: GLIMEPIRIDE 2 MG TABLET PO SCH (17:05)
[2023-03-13] MEDS: SIMVASTATIN 10 MG TABLET PO SCH (21:07)
[2023-03-13] MEDS: ACETAMINOPHEN 325 MG TABLET PO PRN (21:55)
[2023-03-13] MEDS: diphenhydrAMINE 50 MG CAPSULE PO PRN (23:56)
[2023-03-14] VITALS (28 sets, daily range): BP systolic 115–169; BP diastolic 54–80; TEMP 98.1–100.2; O2SAT 96–100
[2023-03-14] MEDS: IV D5W 1000ML 1,000 ML IV SCH ×3 (02:28→22:36)
[2023-03-14] MEDS: CHLORHEXIDINE GLUCONATE 15 ML MOUTHWASH MM SCH ×6 (04:09→23:35)
[2023-03-14 05:16] LABS: BASOPHILS # (AUTO) 0.1 K/UL (0.0-0.2); EOSINOPHILS # (AUTO) 0.3 K/uL (0.0-0.7); EOSINOPHILS % (AUTO) 3.5 % (0.0-7.0); HEMATOCRIT 29.4 % (36.7-47.1); HEMOGLOBIN 9.5 g/dL (12.5-16.3); LYMPHOCYTES # (AUTO) 0.8 K/uL (0.8-4.8); LYMPHOCYTES % (AUTO) 8.6 % (20.5-51.5); MEAN CORPUSCULAR HEMOGLOBIN 26.8 uug (23.8-33.4); MEAN CORPUSCULAR HGB CONC 32 g/dL (32.5-36.3); MEAN CORPUSCULAR VOLUME 82.9 fL (73.0-96.2); MONOCYTES # (AUTO) 0.9 K/uL (0.1-1.30); MONOCYTES % (AUTO) 9.8 % (0.0-11.0); NEUTROPHILS # (AUTO) 7.4 K/uL (1.8-8.9); NEUTROPHILS % (AUTO) 77.1 % (38.5-71.5); PLATELET COUNT (AUTO) 211 K/uL (152-348); RED BLOOD CELL COUNT(AUTO) 3.55 MIL/uL (4.06-5.63); RED CELL DISTRIBUTION WIDTH 15.7 % (12.1-16.2); WHITE BLOOD COUNT (AUTO) 9.6 K/uL (3.6-10.2)
[2023-03-14 05:19] LABS: DIFFERENTIAL COMMENT 1
[2023-03-14] MEDS: MINERAL OIL/PETROLAT OPHT OINT 3.5 GM TUBE EACHEYE SCH ×4 (05:21→23:35)
[2023-03-14] MEDS: LEVOTHYROXINE SODIUM 200 MCG TABLET PO SCH (05:24)
[2023-03-14 05:28] LABS: CREATININE 1.1 mg/dL (0.6-1.3); PHOSPHOROUS 3.7 mg/dL (2.5-4.9); POTASSIUM 4.3 mmol/L (3.5-5.1)
[2023-03-14 06:33] LABS: ABG BASE EXCESS 1.8 mmol/L (-2.0-2.0); ABG HCO3 27.4 mmol/L (22.0-26.0); ABG PCO2 46.9 mmHg (35.0-48.0); ABG PH 7.385 (7.340-7.440); ABG PO2 77.7 mmHg (75.0-100.0); ABG SITE RIGHT RADIAL; ABG TOTAL HEMOGLOBIN 14.3 G/dL (14.0-18.0); AaDO2 95.2 mmHg; COHb 1.5 % (0.0-3.9); MetHb 0.1 % (0.0-1.5); O2Hb 94.2 % (94.0-97.0)
[2023-03-14] MEDS: FOLIC ACID 1 MG TABLET PO SCH (08:25)
[2023-03-14] MEDS: GABAPENTIN 300 MG CAPSULE PO SCH ×2 (08:25→20:28)
[2023-03-14] MEDS: PROTEIN SUPPLEMENT (PROSTAT) 30 ML LIQUID GT SCH ×2 (08:25→16:04)
[2023-03-14] MEDS: MULTIVITAMINS,THERAPEUTIC TABLET PO SCH (08:25)
[2023-03-14] MEDS: ASPIRIN EC 81 MG TABLET.DR PO SCH (08:25)
[2023-03-14] MEDS: CALCITRIOL 0.25 MCG CAPSULE PO SCH (08:26)
[2023-03-14] MEDS: ACETAMINOPHEN 325 MG TABLET PO PRN (08:26)
[2023-03-14] MEDS: EMPAGLIFLOZIN 25 MG TABLET PO SCH (08:26)
[2023-03-14] MEDS: LIOTHYRONINE SODIUM 25 MCG TABLET PO SCH (08:26)
[2023-03-14] MEDS: FLUTICASONE/VILANTEROL 1 EACH BLST.W.DEV INH SCH (08:27)
[2023-03-14] MEDS: CLOTRIMAZOLE 1% CREAM 30 GM TUBE TOP SCH ×2 (08:27→16:05)
[2023-03-14] MEDS ORDERED: APIXABAN 2.5 MG TABLET NG SCH (09:00)
[2023-03-14] MEDS: GLIMEPIRIDE 2 MG TABLET PO SCH (17:01)
[2023-03-14] MEDS: SIMVASTATIN 10 MG TABLET PO SCH (20:28)
[2023-03-14] MEDS ORDERED: hydrALAZINE HCL 25 MG TABLET PO PRN (22:30)
[2023-03-15] VITALS (26 sets, daily range): BP systolic 106–172; BP diastolic 47–79; TEMP 98–100.6; O2SAT 97–100
[2023-03-15] MEDS: CHLORHEXIDINE GLUCONATE 15 ML MOUTHWASH MM SCH ×6 (03:46→23:26)
[2023-03-15 04:51] LABS: BASOPHILS # (AUTO) 0.1 K/UL (0.0-0.2); BASOPHILS % (AUTO) 0.9 % (0.0-2.0); EOSINOPHILS # (AUTO) 0.5 K/uL (0.0-0.7); EOSINOPHILS % (AUTO) 5.5 % (0.0-7.0); HEMATOCRIT 30.1 % (36.7-47.1); HEMOGLOBIN 9.7 g/dL (12.5-16.3); LYMPHOCYTES # (AUTO) 0.8 K/uL (0.8-4.8); LYMPHOCYTES % (AUTO) 8.1 % (20.5-51.5); MEAN CORPUSCULAR HEMOGLOBIN 26.5 uug (23.8-33.4); MEAN CORPUSCULAR HGB CONC 32 g/dL (32.5-36.3); MEAN CORPUSCULAR VOLUME 82.4 fL (73.0-96.2); MONOCYTES # (AUTO) 0.9 K/uL (0.1-1.30); MONOCYTES % (AUTO) 9.1 % (0.0-11.0); NEUTROPHILS # (AUTO) 7.3 K/uL (1.8-8.9); NEUTROPHILS % (AUTO) 76.4 % (38.5-71.5); PLATELET COUNT (AUTO) 211 K/uL (152-348); RED BLOOD CELL COUNT(AUTO) 3.65 MIL/uL (4.06-5.63); RED CELL DISTRIBUTION WIDTH 15.6 % (12.1-16.2); WHITE BLOOD COUNT (AUTO) 9.5 K/uL (3.6-10.2)
[2023-03-15 05:03] LABS: DIFFERENTIAL COMMENT 1
[2023-03-15 05:17] LABS: CALCIUM 8.2 mg/dL (8.5-10.1); CARBON DIOXIDE 30 mmol/L (21-32); CHLORIDE 103 mmol/L (98-107); GLUCOSE 189 mg/dL (74-106); MAGNESIUM 2.2 mg/dL (1.8-2.4); PHOSPHOROUS 4.1 mg/dL (2.5-4.9); POTASSIUM 4.4 mmol/L (3.5-5.1); SODIUM SERUM 137 mmol/L (136-145); UREA NITROGEN, BLOOD 27 mg/dL (7-18)
[2023-03-15] MEDS: LEVOTHYROXINE SODIUM 200 MCG TABLET PO SCH (06:29)
[2023-03-15] MEDS: MINERAL OIL/PETROLAT OPHT OINT 3.5 GM TUBE EACHEYE SCH ×4 (06:30→23:28)
[2023-03-15] MEDS: IV D5W 1000ML 1,000 ML IV SCH (08:28)
[2023-03-15] MEDS: GABAPENTIN 300 MG CAPSULE PO SCH ×2 (08:35→20:05)
[2023-03-15] MEDS: FOLIC ACID 1 MG TABLET PO SCH (08:35)
[2023-03-15] MEDS: ASPIRIN EC 81 MG TABLET.DR PO SCH (08:35)
[2023-03-15] MEDS: MULTIVITAMINS,THERAPEUTIC TABLET PO SCH (08:35)
[2023-03-15] MEDS: CLOTRIMAZOLE 1% CREAM 30 GM TUBE TOP SCH ×2 (08:41→16:30)
[2023-03-15] MEDS: PROTEIN SUPPLEMENT (PROSTAT) 30 ML LIQUID GT SCH ×2 (08:46→16:29)
[2023-03-15] MEDS: LIOTHYRONINE SODIUM 25 MCG TABLET PO SCH (08:49)
[2023-03-15] MEDS: CALCITRIOL 0.25 MCG CAPSULE PO SCH (08:51)
[2023-03-15] MEDS: EMPAGLIFLOZIN 25 MG TABLET PO SCH (08:56)
[2023-03-15] MEDS: CARVEDILOL 6.25 MG TABLET PO SCH ×2 (08:59→17:52)
[2023-03-15] MEDS: FLUTICASONE/VILANTEROL 1 EACH BLST.W.DEV INH SCH (09:22)
[2023-03-15] MEDS: LISINOPRIL 10 MG TABLET PO SCH (09:30)
[2023-03-15] MEDS: JEVITY 1.2 1000 ML LIQUID GT PRN (09:31)
[2023-03-15] MEDS: ACETAMINOPHEN 325 MG TABLET PO PRN (09:51)
[2023-03-15] MEDS: TOBRAMYCIN/DEXAMETH OPHT OINT 3.5 GM TUBE EACHEYE SCH ×3 (12:00→23:27)
[2023-03-15 12:49] LABS: *BILIRUBIN,URIN NEGATIVE (NEGATIVE); *BLOOD, URINE 3+ (NEGATIVE); *CLARITY,URINE CLOUDY (CLEAR); *COLOR,URINE Orange (YELLOW); *KETONES,URINE NEGATIVE (NEGATIVE); *PROTEIN,URINE 2+ (NEGATIVE); *UROBILINOGEN,URINE 0.2 E.U./dl (NORMAL); LEUKOCYTE ESTERASE ,URINE 1+ (NEGATIVE); NITRITE, URINE NEGATIVE (NEGATIVE)
[2023-03-15 13:34] LABS: UGLUCOSE 2+ (NEGATIVE)
[2023-03-15 13:44] LABS: SQUAMOUS EPITHELIAL CELL,UR FEW /HPF (NONE SEEN); YEAST,URINE MANY /HPF (NONE SEEN)
[2023-03-15 13:45] LABS: BACTERIA,URINE MODERATE /HPF (NONE SEEN); RBC,URINE 20-50 /HPF (0-3)
[2023-03-15] MEDS: GLIMEPIRIDE 2 MG TABLET PO SCH (17:54)
[2023-03-15] MEDS: SIMVASTATIN 10 MG TABLET PO SCH (20:05)
[2023-03-16] VITALS (24 sets, daily range): BP systolic 100–152; BP diastolic 51–77; TEMP 97.9–99.2; O2SAT 93–100
[2023-03-16 05:10] LABS: BASOPHILS # (AUTO) 0.1 K/UL (0.0-0.2); BASOPHILS % (AUTO) 0.9 % (0.0-2.0); DIFFERENTIAL COMMENT 0; EOSINOPHILS # (AUTO) 0.6 K/uL (0.0-0.7); EOSINOPHILS % (AUTO) 6.6 % (0.0-7.0); HEMATOCRIT 30.4 % (36.7-47.1); HEMOGLOBIN 9.9 g/dL (12.5-16.3); LYMPHOCYTES # (AUTO) 0.9 K/uL (0.8-4.8); LYMPHOCYTES % (AUTO) 9.6 % (20.5-51.5); MEAN CORPUSCULAR HEMOGLOBIN 26.7 uug (23.8-33.4); MEAN CORPUSCULAR HGB CONC 32 g/dL (32.5-36.3); MEAN CORPUSCULAR VOLUME 82.4 fL (73.0-96.2); MONOCYTES # (AUTO) 0.8 K/uL (0.1-1.30); MONOCYTES % (AUTO) 8.4 % (0.0-11.0); NEUTROPHILS # (AUTO) 7.3 K/uL (1.8-8.9); NEUTROPHILS % (AUTO) 74.5 % (38.5-71.5); PLATELET COUNT (AUTO) 241 K/uL (152-348); RED CELL DISTRIBUTION WIDTH 15.9 % (12.1-16.2); WHITE BLOOD COUNT (AUTO) 9.8 K/uL (3.6-10.2)
[2023-03-16 05:21] LABS: CALCIUM 8.4 mg/dL (8.5-10.1); CARBON DIOXIDE 31 mmol/L (21-32); CHLORIDE 106 mmol/L (98-107); CREATININE 1.1 mg/dL (0.6-1.3); GLUCOSE 132 mg/dL (74-106); MAGNESIUM 2.4 mg/dL (1.8-2.4); PHOSPHOROUS 5.5 mg/dL (2.5-4.9); POTASSIUM 4.9 mmol/L (3.5-5.1); SODIUM SERUM 141 mmol/L (136-145); UREA NITROGEN, BLOOD 33 mg/dL (7-18)
[2023-03-16] MEDS: TOBRAMYCIN/DEXAMETH OPHT OINT 3.5 GM TUBE EACHEYE SCH ×3 (05:56→17:13)
[2023-03-16] MEDS: CHLORHEXIDINE GLUCONATE 15 ML MOUTHWASH MM SCH ×5 (05:57→19:58)
[2023-03-16] MEDS: MINERAL OIL/PETROLAT OPHT OINT 3.5 GM TUBE EACHEYE SCH ×3 (05:57→17:13)
[2023-03-16] MEDS: LEVOTHYROXINE SODIUM 200 MCG TABLET PO SCH (06:00)
[2023-03-16] MEDS: FLUTICASONE/VILANTEROL 1 EACH BLST.W.DEV INH SCH (07:57)
[2023-03-16] MEDS: CLOTRIMAZOLE 1% CREAM 30 GM TUBE TOP SCH ×2 (07:57→17:12)
[2023-03-16] MEDS: FLUCONAZOLE 400MG /NS 200ML IV 400 MG in PREMIXED 1 EACH IV SCH (10:02)
[2023-03-16] MEDS: MULTIVITAMINS,THERAPEUTIC TABLET PO SCH (10:40)
[2023-03-16] MEDS: FOLIC ACID 1 MG TABLET PO SCH (10:40)
[2023-03-16] MEDS: CARVEDILOL 6.25 MG TABLET PO SCH ×2 (10:40→18:00)
[2023-03-16] MEDS: GABAPENTIN 300 MG CAPSULE PO SCH ×2 (10:41→19:58)
[2023-03-16] MEDS: EMPAGLIFLOZIN 25 MG TABLET PO SCH (10:42)
[2023-03-16] MEDS: ASPIRIN EC 81 MG TABLET.DR PO SCH (10:48)
[2023-03-16] MEDS: PROTEIN SUPPLEMENT (PROSTAT) 30 ML LIQUID GT SCH ×2 (10:49→17:00)
[2023-03-16] MEDS: CALCITRIOL 0.25 MCG CAPSULE PO SCH (10:50)
[2023-03-16] MEDS: LIOTHYRONINE SODIUM 25 MCG TABLET PO SCH (10:51)
[2023-03-16] MEDS: LISINOPRIL 10 MG TABLET PO SCH (10:53)
[2023-03-16] MEDS ORDERED: CEFTRIAXONE 1 G in IV DEXTROSE 5% 50 ML IV SCH (11:15)
[2023-03-16] MEDS: CEFTRIAXONE 2 G in IV DEXTROSE 5% 100 ML IV SCH (13:48)
[2023-03-16] MEDS: ACETAMINOPHEN 650 MG SUPP.RECT RC PRN (14:04)
[2023-03-16] MEDS ORDERED: MORPHINE SULFATE 2 MG/1 ML DISP.SYRIN IV PRN (14:15)
[2023-03-16] MEDS: GLIMEPIRIDE 2 MG TABLET PO SCH (17:14)
[2023-03-16] MEDS ORDERED: LIDOCAINE 4% TOPICAL 50 ML BOTTLE ONE (17:47)
[2023-03-16] MEDS ORDERED: GLYCOPYRROLATE 0.2 MG/ML VIAL ONE (18:00)
[2023-03-16] MEDS ORDERED: METOCLOPRAMIDE HCL 10 MG/2 ML VIAL ONE (18:00)
[2023-03-16] MEDS: IV D5 1/2 NS 1000 ML 1,000 ML IV SCH (19:39)
[2023-03-16] MEDS: SIMVASTATIN 10 MG TABLET PO SCH (19:58)
[2023-03-17] VITALS (26 sets, daily range): BP systolic 105–141; BP diastolic 51–78; TEMP 98.5–99.6; O2SAT 93–97
[2023-03-17] MEDS ORDERED: ETOMIDATE 20 MG/10 ML VIAL ONE
[2023-03-17] MEDS ORDERED: SUCCINYLCHOLINE CHLORIDE 200 MG/10 ML VIAL ONE
[2023-03-17] MEDS: CHLORHEXIDINE GLUCONATE 15 ML MOUTHWASH MM SCH ×6 (00:27→19:52)
[2023-03-17] MEDS: MINERAL OIL/PETROLAT OPHT OINT 3.5 GM TUBE EACHEYE SCH ×4 (00:27→17:33)
[2023-03-17] MEDS: TOBRAMYCIN/DEXAMETH OPHT OINT 3.5 GM TUBE EACHEYE SCH ×4 (00:28→17:34)
[2023-03-17 04:51] LABS: BASOPHILS # (AUTO) 0.1 K/UL (0.0-0.2); BASOPHILS % (AUTO) 1.3 % (0.0-2.0); EOSINOPHILS # (AUTO) 0.6 K/uL (0.0-0.7); EOSINOPHILS % (AUTO) 6.3 % (0.0-7.0); HEMATOCRIT 30.8 % (36.7-47.1); HEMOGLOBIN 9.8 g/dL (12.5-16.3); LYMPHOCYTES # (AUTO) 0.9 K/uL (0.8-4.8); MEAN CORPUSCULAR HEMOGLOBIN 26.3 uug (23.8-33.4); MEAN CORPUSCULAR HGB CONC 32 g/dL (32.5-36.3); MEAN CORPUSCULAR VOLUME 82.9 fL (73.0-96.2); MONOCYTES # (AUTO) 0.8 K/uL (0.1-1.30); MONOCYTES % (AUTO) 8.5 % (0.0-11.0); NEUTROPHILS # (AUTO) 7.2 K/uL (1.8-8.9); NEUTROPHILS % (AUTO) 74.9 % (38.5-71.5); PLATELET COUNT (AUTO) 291 K/uL (152-348); RED BLOOD CELL COUNT(AUTO) 3.71 MIL/uL (4.06-5.63); RED CELL DISTRIBUTION WIDTH 15.8 % (12.1-16.2); WHITE BLOOD COUNT (AUTO) 9.6 K/uL (3.6-10.2)
[2023-03-17 05:01] LABS: DIFFERENTIAL COMMENT 1
[2023-03-17 05:09] LABS: CARBON DIOXIDE 31 mmol/L (21-32); CHLORIDE 109 mmol/L (98-107); CREATININE 1.3 mg/dL (0.6-1.3); GLUCOSE 138 mg/dL (74-106); MAGNESIUM 2.6 mg/dL (1.8-2.4); PHOSPHOROUS 5.8 mg/dL (2.5-4.9); POTASSIUM 5.3 mmol/L (3.5-5.1); SODIUM SERUM 144 mmol/L (136-145); UREA NITROGEN, BLOOD 43 mg/dL (7-18)
[2023-03-17 05:17] LABS: CALCIUM 8.6 mg/dL (8.5-10.1)
[2023-03-17] MEDS: FOLIC ACID 1 MG TABLET PO SCH (09:01)
[2023-03-17] MEDS: GABAPENTIN 300 MG CAPSULE PO SCH ×2 (09:01→20:05)
[2023-03-17] MEDS: MULTIVITAMINS,THERAPEUTIC TABLET PO SCH (09:04)
[2023-03-17] MEDS: CARVEDILOL 6.25 MG TABLET PO SCH ×2 (09:06→17:41)
[2023-03-17] MEDS: LEVOTHYROXINE SODIUM 200 MCG TABLET PO SCH (09:07)
[2023-03-17] MEDS: PROTEIN SUPPLEMENT (PROSTAT) 30 ML LIQUID GT SCH ×2 (09:08→17:37)
[2023-03-17] MEDS: LIOTHYRONINE SODIUM 25 MCG TABLET PO SCH (09:09)
[2023-03-17] MEDS: APIXABAN 2.5 MG TABLET PO SCH ×2 (09:11→20:04)
[2023-03-17] MEDS: CALCITRIOL 0.25 MCG CAPSULE PO SCH (09:13)
[2023-03-17] MEDS: EMPAGLIFLOZIN 25 MG TABLET PO SCH (09:13)
[2023-03-17] MEDS: CLOTRIMAZOLE 1% CREAM 30 GM TUBE TOP SCH ×2 (09:14→17:34)
[2023-03-17] MEDS: FLUTICASONE/VILANTEROL 1 EACH BLST.W.DEV INH SCH (09:14)
[2023-03-17] MEDS: FLUCONAZOLE 400MG /NS 200ML IV 400 MG in PREMIXED 1 EACH IV SCH (09:17)
[2023-03-17] MEDS: CEFTRIAXONE 2 G in IV DEXTROSE 5% 100 ML IV SCH (11:50)
[2023-03-17] MEDS: IV D5 1/2 NS 1000 ML 1,000 ML IV SCH (15:30)
[2023-03-17] MEDS: GLIMEPIRIDE 2 MG TABLET PO SCH (17:33)
[2023-03-17] MEDS: SIMVASTATIN 10 MG TABLET PO SCH (20:05)
[2023-03-18] VITALS (59 sets, daily range): BP systolic 73–256; BP diastolic 43–122; TEMP 98.7–102; O2SAT 90–100
[2023-03-18] MEDS: CHLORHEXIDINE GLUCONATE 15 ML MOUTHWASH MM SCH ×6 (00:48→20:33)
[2023-03-18] MEDS: MINERAL OIL/PETROLAT OPHT OINT 3.5 GM TUBE EACHEYE SCH ×4 (00:48→17:20)
[2023-03-18] MEDS: TOBRAMYCIN/DEXAMETH OPHT OINT 3.5 GM TUBE EACHEYE SCH ×4 (00:48→17:20)
[2023-03-18] MEDS: diphenhydrAMINE 50 MG CAPSULE PO PRN (02:39)
[2023-03-18] MEDS: ACETAMINOPHEN 325 MG TABLET PO PRN (02:39)
[2023-03-18 05:03] LABS: BASOPHILS # (AUTO) 0.1 K/UL (0.0-0.2); BASOPHILS % (AUTO) 1.6 % (0.0-2.0); EOSINOPHILS # (AUTO) 0.5 K/uL (0.0-0.7); HEMATOCRIT 31.8 % (36.7-47.1); LYMPHOCYTES # (AUTO) 0.7 K/uL (0.8-4.8); LYMPHOCYTES % (AUTO) 7.4 % (20.5-51.5); MEAN CORPUSCULAR HEMOGLOBIN 26.5 uug (23.8-33.4); MEAN CORPUSCULAR HGB CONC 32 g/dL (32.5-36.3); MEAN CORPUSCULAR VOLUME 84.1 fL (73.0-96.2); MONOCYTES # (AUTO) 0.5 K/uL (0.1-1.30); MONOCYTES % (AUTO) 5.8 % (0.0-11.0); NEUTROPHILS % (AUTO) 79.2 % (38.5-71.5); PLATELET COUNT (AUTO) 282 K/uL (152-348); RED BLOOD CELL COUNT(AUTO) 3.78 MIL/uL (4.06-5.63); RED CELL DISTRIBUTION WIDTH 16.4 % (12.1-16.2); WHITE BLOOD COUNT (AUTO) 8.8 K/uL (3.6-10.2)
[2023-03-18 05:05] LABS: DIFFERENTIAL COMMENT 1
[2023-03-18 05:13] LABS: CALCIUM 8.6 mg/dL (8.5-10.1); CARBON DIOXIDE 30 mmol/L (21-32); CHLORIDE 110 mmol/L (98-107); CREATININE 1.4 mg/dL (0.6-1.3); GLUCOSE 147 mg/dL (74-106); MAGNESIUM 2.7 mg/dL (1.8-2.4); PHOSPHOROUS 6.6 mg/dL (2.5-4.9); POTASSIUM 5.2 mmol/L (3.5-5.1); SODIUM SERUM 146 mmol/L (136-145); UREA NITROGEN, BLOOD 49 mg/dL (7-18)
[2023-03-18] MEDS: LEVOTHYROXINE SODIUM 200 MCG TABLET PO SCH (05:26)
[2023-03-18 06:37] LABS: ABG BASE EXCESS -2.6 mmol/L (-2.0-2.0); ABG HCO3 29.3 mmol/L (22.0-26.0); ABG PCO2 93.4 mmHg (35.0-48.0); ABG PH 7.114 (7.340-7.440); ABG PO2 126.7 mmHg (75.0-100.0); ABG SITE LEFT RADIAL; ABG TOTAL HEMOGLOBIN 13.4 G/dL (14.0-18.0); AaDO2 97.1 mmHg; COHb 0.6 % (0.0-3.9); MetHb 0.1 % (0.0-1.5); O2Hb 96.6 % (94.0-97.0)
[2023-03-18] MEDS ORDERED: SODIUM BICARBONATE 8.4% 50 MEQ/50 ML DISP.SYRIN IV ONE ×3 (06:45→08:00)
[2023-03-18] MEDS ORDERED: NOREPINEPHRINE BITARTRATE 32 MG in IV NORMAL SALINE 218 ML IV PRN (07:15)
[2023-03-18] MEDS: NOREPINEPHRINE BITARTRATE 8 MG in IV NORMAL SALINE 242 ML IV PRN ×3 (07:28→13:33)
[2023-03-18] MEDS: PROPOFOL 100 ML IV PRN ×4 (07:30→23:52)
[2023-03-18 07:40] LABS: ABG BASE EXCESS -1.3 mmol/L (-2.0-2.0); ABG HCO3 26.6 mmol/L (22.0-26.0); ABG PCO2 60.3 mmHg (35.0-48.0); ABG PH 7.263 (7.340-7.440); ABG SITE RIGHT RADIAL; ABG TOTAL HEMOGLOBIN 11.9 G/dL (14.0-18.0); AaDO2 98.6 mmHg; COHb 0.1 % (0.0-3.9); MetHb 0.1 % (0.0-1.5); O2Hb 98.5 % (94.0-97.0); VT, ABG 600 mL
[2023-03-18] MEDS ORDERED: DOPamine IV DRIP 400 MG/250ML 250 ML IV PRN (08:00)
[2023-03-18] MEDS ORDERED: SODIUM POLYSTYRENE SULFONATE 15 G/60 ML LIQUID UDC GT ONE (08:30)
[2023-03-18] MEDS: PROTEIN SUPPLEMENT (PROSTAT) 30 ML LIQUID GT SCH ×2 (09:00→17:00)
[2023-03-18] MEDS: GABAPENTIN 300 MG CAPSULE PO SCH ×2 (09:00→21:00)
[2023-03-18] MEDS: LIOTHYRONINE SODIUM 25 MCG TABLET PO SCH (09:00)
[2023-03-18] MEDS ORDERED: LISINOPRIL 10 MG TABLET PO SCH (09:00)
[2023-03-18] MEDS: FOLIC ACID 1 MG TABLET PO SCH (09:00)
[2023-03-18] MEDS: FLUTICASONE/VILANTEROL 1 EACH BLST.W.DEV INH SCH (09:00)
[2023-03-18] MEDS: MULTIVITAMINS,THERAPEUTIC TABLET PO SCH (09:00)
[2023-03-18] MEDS: CALCITRIOL 0.25 MCG CAPSULE PO SCH (09:01)
[2023-03-18] MEDS: EMPAGLIFLOZIN 25 MG TABLET PO SCH (09:01)
[2023-03-18] MEDS: APIXABAN 2.5 MG TABLET PO SCH ×2 (09:02→21:00)
[2023-03-18] MEDS: CLOTRIMAZOLE 1% CREAM 30 GM TUBE TOP SCH ×2 (09:05→17:22)
[2023-03-18] MEDS ORDERED: PIPERACILLIN SODIUM/TAZOBACTAM 3.375 G in IV DEXTROSE 5% 50 ML IV SCH (09:30)
[2023-03-18] MEDS: FLUCONAZOLE 200 MG/NS 100ML IV 200 MG in PREMIXED 1 EACH IV SCH (09:59)
[2023-03-18] MEDS: MEROPENEM 1 G in IV NORMAL SALINE 100 ML IV SCH ×2 (10:51→17:19)
[2023-03-18 14:27] LABS: CALCIUM 8.7 mg/dL (8.5-10.1); CARBON DIOXIDE 27 mmol/L (21-32); CHLORIDE 108 mmol/L (98-107); CREATININE 2.1 mg/dL (0.6-1.3); GLUCOSE 185 mg/dL (74-106); POTASSIUM 5.5 mmol/L (3.5-5.1); SODIUM SERUM 146 mmol/L (136-145); UREA NITROGEN, BLOOD 65 mg/dL (7-18)
[2023-03-18] MEDS: IV D5 1/2 NS 1000 ML 1,000 ML IV SCH (15:55)
[2023-03-18] MEDS: NOREPINEPHRINE BITARTRATE 32 MG in IV NORMAL SALINE 218 ML IV PRN (16:03)
[2023-03-18 16:10] LABS: *BILIRUBIN,URIN NEGATIVE (NEGATIVE); *BLOOD, URINE 3+ (NEGATIVE); *CLARITY,URINE CLEAR (CLEAR); *COLOR,URINE YELLOW (YELLOW); *KETONES,URINE NEGATIVE (NEGATIVE); *PROTEIN,URINE 2+ (NEGATIVE); *UROBILINOGEN,URINE 0.2 E.U./dl (NORMAL); LEUKOCYTE ESTERASE ,URINE TRACE (NEGATIVE); NITRITE, URINE NEGATIVE (NEGATIVE); PH,URINE 5.5 (5.0-8.0)
[2023-03-18 16:13] LABS: *URINE TOTAL PROTEIN RANDOM 152.6 mg/dL (<150/24HR)
[2023-03-18 16:17] LABS: UGLUCOSE 1+ (NEGATIVE)
[2023-03-18] MEDS: GLIMEPIRIDE 2 MG TABLET PO SCH (17:19)
[2023-03-18 17:31] LABS: BASOPHILS # (AUTO) 0.1 K/UL (0.0-0.2); BASOPHILS % (AUTO) 0.5 % (0.0-2.0); DIFFERENTIAL COMMENT 0; EOSINOPHILS # (AUTO) 0.6 K/uL (0.0-0.7); EOSINOPHILS % (AUTO) 4.5 % (0.0-7.0); HEMATOCRIT 35.4 % (36.7-47.1); HEMOGLOBIN 10.6 g/dL (12.5-16.3); LYMPHOCYTES % (AUTO) 7.7 % (20.5-51.5); MEAN CORPUSCULAR HEMOGLOBIN 25.4 uug (23.8-33.4); MEAN CORPUSCULAR HGB CONC 30 g/dL (32.5-36.3); MEAN CORPUSCULAR VOLUME 84.7 fL (73.0-96.2); MONOCYTES # (AUTO) 1.3 K/uL (0.1-1.30); MONOCYTES % (AUTO) 9.7 % (0.0-11.0); NEUTROPHILS # (AUTO) 10.6 K/uL (1.8-8.9); NEUTROPHILS % (AUTO) 77.6 % (38.5-71.5); PLATELET COUNT (AUTO) 514 K/uL (152-348); RED BLOOD CELL COUNT(AUTO) 4.19 MIL/uL (4.06-5.63); RED CELL DISTRIBUTION WIDTH 16.6 % (12.1-16.2); WHITE BLOOD COUNT (AUTO) 13.6 K/uL (3.6-10.2)
[2023-03-18 18:07] LABS: BACTERIA,URINE MODERATE /HPF (NONE SEEN); SQUAMOUS EPITHELIAL CELL,UR MODERATE /HPF (NONE SEEN); URINE AMORPHOUS URATE MODERATE /HPF
[2023-03-18 18:08] LABS: COARSE GRANULAR CASTS,URINE 0-3 /LPF; RBC,URINE 20-50 /HPF (0-3)
[2023-03-18] MEDS: SIMVASTATIN 10 MG TABLET PO SCH (21:00)
[2023-03-18] MEDS: ACETAMINOPHEN 650 MG SUPP.RECT RC PRN (23:26)
[2023-03-19] VITALS (41 sets, daily range): BP systolic 89–146; BP diastolic 46–77; TEMP 97.4–102.5; O2SAT 93–100
[2023-03-19] MEDS: TOBRAMYCIN/DEXAMETH OPHT OINT 3.5 GM TUBE EACHEYE SCH ×4 (00:06→17:06)
[2023-03-19] MEDS: MINERAL OIL/PETROLAT OPHT OINT 3.5 GM TUBE EACHEYE SCH ×4 (00:07→17:06)
[2023-03-19] MEDS: CHLORHEXIDINE GLUCONATE 15 ML MOUTHWASH MM SCH ×6 (00:08→20:15)
[2023-03-19] MEDS: MEROPENEM 1 G in IV NORMAL SALINE 100 ML IV SCH ×2 (02:02→15:15)
[2023-03-19] MEDS: PROPOFOL 100 ML IV PRN ×4 (03:59→19:28)
[2023-03-19 05:00] LABS: BASOPHILS # (AUTO) 0.1 K/UL (0.0-0.2); BASOPHILS % (AUTO) 0.8 % (0.0-2.0); EOSINOPHILS # (AUTO) 0.4 K/uL (0.0-0.7); EOSINOPHILS % (AUTO) 3.9 % (0.0-7.0); HEMATOCRIT 35.7 % (36.7-47.1); HEMOGLOBIN 11.2 g/dL (12.5-16.3); LYMPHOCYTES # (AUTO) 1.6 K/uL (0.8-4.8); LYMPHOCYTES % (AUTO) 14.9 % (20.5-51.5); MEAN CORPUSCULAR HEMOGLOBIN 25.8 uug (23.8-33.4); MEAN CORPUSCULAR HGB CONC 31 g/dL (32.5-36.3); MEAN CORPUSCULAR VOLUME 82.3 fL (73.0-96.2); MONOCYTES # (AUTO) 1.6 K/uL (0.1-1.30); MONOCYTES % (AUTO) 14.1 % (0.0-11.0); NEUTROPHILS # (AUTO) 7.3 K/uL (1.8-8.9); NEUTROPHILS % (AUTO) 66.3 % (38.5-71.5); PLATELET COUNT (AUTO) 413 K/uL (152-348); RED BLOOD CELL COUNT(AUTO) 4.34 MIL/uL (4.06-5.63); RED CELL DISTRIBUTION WIDTH 16.8 % (12.1-16.2); WHITE BLOOD COUNT (AUTO) 11.1 K/uL (3.6-10.2)
[2023-03-19 05:35] LABS: DIFFERENTIAL COMMENT 1
[2023-03-19 05:43] LABS: CALCIUM 8.2 mg/dL (8.5-10.1); CARBON DIOXIDE 26 mmol/L (21-32); CHLORIDE 109 mmol/L (98-107); CREATININE 3.3 mg/dL (0.6-1.3); GLUCOSE 187 mg/dL (74-106); MAGNESIUM 2.7 mg/dL (1.8-2.4); PHOSPHOROUS 4.5 mg/dL (2.5-4.9); POTASSIUM 5.4 mmol/L (3.5-5.1)
[2023-03-19 05:47] LABS: UREA NITROGEN, BLOOD 81 mg/dL (7-18)
[2023-03-19 05:48] LABS: SODIUM SERUM 148 mmol/L (136-145)
[2023-03-19 05:52] LABS: ABG HCO3 24.4 mmol/L (22.0-26.0); ABG PCO2 35.7 mmHg (35.0-48.0); ABG PH 7.453 (7.340-7.440); ABG PO2 76.2 mmHg (75.0-100.0); ABG SITE LEFT RADIAL; ABG TOTAL HEMOGLOBIN 15.8 G/dL (14.0-18.0); AaDO2 95.9 mmHg; COHb 0.6 % (0.0-3.9); MetHb 0.3 % (0.0-1.5); O2Hb 93.6 % (94.0-97.0); VT, ABG 600 mL
[2023-03-19] MEDS: NOREPINEPHRINE BITARTRATE 32 MG in IV NORMAL SALINE 218 ML IV PRN ×2 (06:42→19:35)
[2023-03-19] MEDS: LEVOTHYROXINE SODIUM 200 MCG TABLET PO SCH (06:43)
[2023-03-19] MEDS: PROTEIN SUPPLEMENT (PROSTAT) 30 ML LIQUID GT SCH ×2 (08:08→16:31)
[2023-03-19] MEDS: APIXABAN 2.5 MG TABLET PO SCH (08:08)
[2023-03-19] MEDS: FLUTICASONE/VILANTEROL 1 EACH BLST.W.DEV INH SCH (08:08)
[2023-03-19] MEDS: LIOTHYRONINE SODIUM 25 MCG TABLET PO SCH (08:08)
[2023-03-19] MEDS: CALCITRIOL 0.25 MCG CAPSULE PO SCH (08:09)
[2023-03-19] MEDS: FOLIC ACID 1 MG TABLET PO SCH (08:09)
[2023-03-19] MEDS: EMPAGLIFLOZIN 25 MG TABLET PO SCH (08:09)
[2023-03-19] MEDS: GABAPENTIN 300 MG CAPSULE PO SCH ×2 (08:09→21:50)
[2023-03-19] MEDS: MULTIVITAMINS,THERAPEUTIC TABLET PO SCH (08:09)
[2023-03-19] MEDS: FLUCONAZOLE 200 MG/NS 100ML IV 200 MG in PREMIXED 1 EACH IV SCH (08:10)
[2023-03-19] MEDS: CLOTRIMAZOLE 1% CREAM 30 GM TUBE TOP SCH ×2 (08:15→16:35)
[2023-03-19] MEDS: PANTOPRAZOLE SODIUM 40 MG VIAL IV SCH (11:10)
[2023-03-19] MEDS: HEPARIN SODIUM,PORCINE 5,000 UNITS/ML VIAL SQ SCH ×2 (11:11→22:34)
[2023-03-19] MEDS: GLIMEPIRIDE 2 MG TABLET PO SCH (17:07)
[2023-03-19] MEDS: IV D5 1/2 NS 1000 ML 1,000 ML IV SCH (18:24)
[2023-03-19] MEDS: SIMVASTATIN 10 MG TABLET PO SCH (21:50)
[2023-03-20] VITALS (31 sets, daily range): BP systolic 81–175; BP diastolic 43–98; TEMP 98.6–100.2; O2SAT 92–98
[2023-03-20] MEDS: CHLORHEXIDINE GLUCONATE 15 ML MOUTHWASH MM SCH ×7 (00:42→23:30)
[2023-03-20] MEDS: TOBRAMYCIN/DEXAMETH OPHT OINT 3.5 GM TUBE EACHEYE SCH ×5 (00:43→23:34)
[2023-03-20] MEDS: MINERAL OIL/PETROLAT OPHT OINT 3.5 GM TUBE EACHEYE SCH ×5 (00:57→23:34)
[2023-03-20] MEDS: PROPOFOL 100 ML IV PRN ×5 (01:15→23:38)
[2023-03-20] MEDS: MEROPENEM 1 G in IV NORMAL SALINE 100 ML IV SCH (01:45)
[2023-03-20] MEDS ORDERED: NOREPINEPHRINE BITARTRATE 4 MG/4 ML VIAL IV ONE (06:27)
[2023-03-20 06:30] LABS: ABG BASE EXCESS -4.3 mmol/L (-2.0-2.0); ABG HCO3 20.7 mmol/L (22.0-26.0); ABG PCO2 37.7 mmHg (35.0-48.0); ABG PH 7.358 (7.340-7.440); ABG PO2 89.7 mmHg (75.0-100.0); ABG TOTAL HEMOGLOBIN 11.2 G/dL (14.0-18.0); AaDO2 96.6 mmHg; COHb 0.3 % (0.0-3.9); O2Hb 95.6 % (94.0-97.0); VT, ABG 600 mL
[2023-03-20] MEDS: NOREPINEPHRINE BITARTRATE 32 MG in IV NORMAL SALINE 218 ML IV PRN ×3 (06:37→23:25)
[2023-03-20] MEDS: LEVOTHYROXINE SODIUM 200 MCG TABLET PO SCH ×2 (06:46→19:49)
[2023-03-20] MEDS: IV D5 1/2 NS 1000 ML 1,000 ML IV SCH ×2 (07:00→21:52)
[2023-03-20 08:02] LABS: BASOPHILS # (AUTO) 0.1 K/UL (0.0-0.2); BASOPHILS % (AUTO) 0.8 % (0.0-2.0); EOSINOPHILS # (AUTO) 0.2 K/uL (0.0-0.7); EOSINOPHILS % (AUTO) 1.5 % (0.0-7.0); HEMATOCRIT 31.7 % (36.7-47.1); HEMOGLOBIN 9.8 g/dL (12.5-16.3); LYMPHOCYTES # (AUTO) 1.6 K/uL (0.8-4.8); LYMPHOCYTES % (AUTO) 12.3 % (20.5-51.5); MEAN CORPUSCULAR HEMOGLOBIN 26.3 uug (23.8-33.4); MEAN CORPUSCULAR HGB CONC 31 g/dL (32.5-36.3); MEAN CORPUSCULAR VOLUME 84.7 fL (73.0-96.2); MONOCYTES # (AUTO) 1.2 K/uL (0.1-1.30); MONOCYTES % (AUTO) 9.3 % (0.0-11.0); NEUTROPHILS # (AUTO) 9.9 K/uL (1.8-8.9); NEUTROPHILS % (AUTO) 76.1 % (38.5-71.5); PLATELET COUNT (AUTO) 290 K/uL (152-348); RED BLOOD CELL COUNT(AUTO) 3.74 MIL/uL (4.06-5.63); RED CELL DISTRIBUTION WIDTH 17.5 % (12.1-16.2); WHITE BLOOD COUNT (AUTO) 13.1 K/uL (3.6-10.2)
[2023-03-20 08:13] LABS: CALCIUM 7.8 mg/dL (8.5-10.1); CARBON DIOXIDE 22 mmol/L (21-32); CHLORIDE 107 mmol/L (98-107); CREATININE 6.7 mg/dL (0.6-1.3); GLUCOSE 337 mg/dL (74-106); MAGNESIUM 2.9 mg/dL (1.8-2.4); PHOSPHOROUS 6.9 mg/dL (2.5-4.9); POTASSIUM 5.2 mmol/L (3.5-5.1); SODIUM SERUM 145 mmol/L (136-145)
[2023-03-20 08:17] LABS: UREA NITROGEN, BLOOD 100 mg/dL (7-18)
[2023-03-20 08:18] LABS: DIFFERENTIAL COMMENT 1
[2023-03-20] MEDS: CALCITRIOL 0.25 MCG CAPSULE PO SCH (09:00)
[2023-03-20] MEDS: CLOTRIMAZOLE 1% CREAM 30 GM TUBE TOP SCH ×2 (09:00→16:24)
[2023-03-20] MEDS: LIOTHYRONINE SODIUM 25 MCG TABLET PO SCH (09:00)
[2023-03-20] MEDS: FOLIC ACID 1 MG TABLET PO SCH (09:00)
[2023-03-20] MEDS: MULTIVITAMINS,THERAPEUTIC TABLET PO SCH (09:00)
[2023-03-20] MEDS: GABAPENTIN 300 MG CAPSULE PO SCH ×2 (09:00→19:48)
[2023-03-20] MEDS: EMPAGLIFLOZIN 25 MG TABLET PO SCH (09:00)
[2023-03-20] MEDS: PROTEIN SUPPLEMENT (PROSTAT) 30 ML LIQUID GT SCH ×2 (09:00→16:24)
[2023-03-20] MEDS: FLUTICASONE/VILANTEROL 1 EACH BLST.W.DEV INH SCH (09:00)
[2023-03-20] MEDS: HEPARIN SODIUM,PORCINE 5,000 UNITS/ML VIAL SQ SCH ×2 (09:00→20:51)
[2023-03-20] MEDS: PANTOPRAZOLE SODIUM 40 MG VIAL IV SCH (09:02)
[2023-03-20] MEDS: FLUCONAZOLE 200 MG/NS 100ML IV 200 MG in PREMIXED 1 EACH IV SCH (09:32)
[2023-03-20] MEDS: ACETAMINOPHEN 650 MG SUPP.RECT RC PRN (11:10)
[2023-03-20] MEDS: GLIMEPIRIDE 2 MG TABLET PO SCH (18:00)
[2023-03-20] MEDS: SIMVASTATIN 10 MG TABLET PO SCH (19:48)
[2023-03-20] MEDS: BLOOD SUGAR DIAGNOSTIC 1 EACH STRIP VI SCH ×2 (20:30→23:26)
[2023-03-20] MEDS ORDERED: DEXTROSE 50% 50 ML DISP.SYRIN IV PRN (20:30)
[2023-03-20] MEDS ORDERED: INSULIN REGULAR, HUMAN 300 UNIT/3 ML VIAL ONE (21:49)
[2023-03-20] MEDS: INSULIN REGULAR, HUMAN 300 UNIT/3 ML VIAL SQ PRN (21:56)
[2023-03-20] MEDS: METOCLOPRAMIDE HCL 10 MG/2 ML VIAL IV SCH (22:05)
[2023-03-20] MEDS: MEROPENEM 500 MG in IV NORMAL SALINE 50 ML IV SCH (22:05)
[2023-03-21] VITALS (30 sets, daily range): BP systolic 95–157; BP diastolic 44–74; TEMP 97.3–102.9; O2SAT 80–100
[2023-03-21] MEDS: ACETAMINOPHEN 650 MG SUPP.RECT RC PRN ×2 (00:22→21:04)
[2023-03-21 04:57] LABS: BASOPHILS # (AUTO) 0.2 K/UL (0.0-0.2); BASOPHILS % (AUTO) 1.2 % (0.0-2.0); EOSINOPHILS # (AUTO) 0.4 K/uL (0.0-0.7); EOSINOPHILS % (AUTO) 2.8 % (0.0-7.0); HEMATOCRIT 32.1 % (36.7-47.1); HEMOGLOBIN 9.8 g/dL (12.5-16.3); LYMPHOCYTES # (AUTO) 1.2 K/uL (0.8-4.8); MEAN CORPUSCULAR HEMOGLOBIN 25.5 uug (23.8-33.4); MEAN CORPUSCULAR HGB CONC 31 g/dL (32.5-36.3); MEAN CORPUSCULAR VOLUME 83.4 fL (73.0-96.2); MONOCYTES # (AUTO) 1.1 K/uL (0.1-1.30); MONOCYTES % (AUTO) 8.6 % (0.0-11.0); NEUTROPHILS # (AUTO) 10.1 K/uL (1.8-8.9); NEUTROPHILS % (AUTO) 78.4 % (38.5-71.5); PLATELET COUNT (AUTO) 255 K/uL (152-348); RED BLOOD CELL COUNT(AUTO) 3.85 MIL/uL (4.06-5.63); RED CELL DISTRIBUTION WIDTH 16.8 % (12.1-16.2); WHITE BLOOD COUNT (AUTO) 12.9 K/uL (3.6-10.2)
[2023-03-21 04:59] LABS: DIFFERENTIAL COMMENT 1
[2023-03-21 05:11] LABS: CALCIUM 7.7 mg/dL (8.5-10.1); CARBON DIOXIDE 20 mmol/L (21-32); CHLORIDE 105 mmol/L (98-107); CREATININE 6.5 mg/dL (0.6-1.3); GLUCOSE 242 mg/dL (74-106); MAGNESIUM 2.9 mg/dL (1.8-2.4); POTASSIUM 5.8 mmol/L (3.5-5.1); SODIUM SERUM 142 mmol/L (136-145)
[2023-03-21 05:15] LABS: PHOSPHOROUS 8.6 mg/dL (2.5-4.9); UREA NITROGEN, BLOOD 94 mg/dL (7-18)
[2023-03-21] MEDS: CHLORHEXIDINE GLUCONATE 15 ML MOUTHWASH MM SCH ×5 (05:21→19:19)
[2023-03-21] MEDS: METOCLOPRAMIDE HCL 10 MG/2 ML VIAL IV SCH ×3 (05:24→21:35)
[2023-03-21] MEDS: MINERAL OIL/PETROLAT OPHT OINT 3.5 GM TUBE EACHEYE SCH ×3 (05:24→18:36)
[2023-03-21] MEDS: TOBRAMYCIN/DEXAMETH OPHT OINT 3.5 GM TUBE EACHEYE SCH ×3 (05:24→18:36)
[2023-03-21] MEDS: BLOOD SUGAR DIAGNOSTIC 1 EACH STRIP VI SCH ×3 (05:35→18:37)
[2023-03-21] MEDS: INSULIN REGULAR, HUMAN 300 UNIT/3 ML VIAL SQ PRN ×3 (05:37→18:32)
[2023-03-21] MEDS: PROPOFOL 100 ML IV PRN ×3 (06:17→19:14)
[2023-03-21] MEDS: MULTIVITAMINS,THERAPEUTIC TABLET PO SCH (09:00)
[2023-03-21] MEDS ORDERED: FLUCONAZOLE 200 MG/NS 100ML IV 100 MG in PREMIXED 1 EACH IV SCH (09:00)
[2023-03-21] MEDS: FOLIC ACID 1 MG TABLET PO SCH (09:00)
[2023-03-21] MEDS: HEPARIN SODIUM,PORCINE 5,000 UNITS/ML VIAL SQ SCH ×2 (09:00→21:37)
[2023-03-21] MEDS: LIOTHYRONINE SODIUM 25 MCG TABLET PO SCH (09:00)
[2023-03-21] MEDS: GABAPENTIN 300 MG CAPSULE PO SCH ×2 (09:00→20:47)
[2023-03-21] MEDS: CALCITRIOL 0.25 MCG CAPSULE PO SCH (09:00)
[2023-03-21] MEDS: PROTEIN SUPPLEMENT (PROSTAT) 30 ML LIQUID GT SCH ×2 (09:00→17:00)
[2023-03-21] MEDS: EMPAGLIFLOZIN 25 MG TABLET PO SCH (09:00)
[2023-03-21] MEDS: NOREPINEPHRINE BITARTRATE 32 MG in IV NORMAL SALINE 218 ML IV PRN ×3 (10:18→19:17)
[2023-03-21] MEDS: FLUTICASONE/VILANTEROL 1 EACH BLST.W.DEV INH SCH (10:21)
[2023-03-21] MEDS: PANTOPRAZOLE SODIUM 40 MG VIAL IV SCH (10:25)
[2023-03-21] MEDS: CLOTRIMAZOLE 1% CREAM 30 GM TUBE TOP SCH ×2 (10:32→18:36)
[2023-03-21] MEDS: IV D5 1/2 NS 1000 ML 1,000 ML IV SCH (19:14)
[2023-03-21] MEDS: SIMVASTATIN 10 MG TABLET PO SCH (20:47)
[2023-03-21] MEDS: LEVOTHYROXINE SODIUM 200 MCG TABLET PO SCH (20:49)
[2023-03-21 22:16] LABS: *BLOOD, URINE 3+ (NEGATIVE); *COLOR,URINE YELLOW (YELLOW); *KETONES,URINE NEGATIVE (NEGATIVE); *PROTEIN,URINE 2+ (NEGATIVE); *UROBILINOGEN,URINE 0.2 E.U./dl (NORMAL); LEUKOCYTE ESTERASE ,URINE TRACE (NEGATIVE); NITRITE, URINE NEGATIVE (NEGATIVE); PH,URINE 5.5 (5.0-8.0); UGLUCOSE NEGATIVE (NEGATIVE)
[2023-03-21 22:24] LABS: *BILIRUBIN,URIN 1+ (NEGATIVE); *CLARITY,URINE SLIGHTLY CLOUDY (CLEAR)
[2023-03-21] MEDS: MEROPENEM 500 MG in IV NORMAL SALINE 50 ML IV SCH (22:40)
[2023-03-21 23:06] LABS: RBC,URINE TNTC /HPF (0-3)
[2023-03-21 23:07] LABS: BACTERIA,URINE MANY /HPF (NONE SEEN); SQUAMOUS EPITHELIAL CELL,UR NONE SEEN /HPF (NONE SEEN)
[2023-03-22] VITALS (32 sets, daily range): BP systolic 118–152; BP diastolic 54–86; TEMP 98.9–102.5; O2SAT 95–99
[2023-03-22] MEDS: TOBRAMYCIN/DEXAMETH OPHT OINT 3.5 GM TUBE EACHEYE SCH ×5 (00:12→23:34)
[2023-03-22] MEDS: MINERAL OIL/PETROLAT OPHT OINT 3.5 GM TUBE EACHEYE SCH ×5 (00:12→23:33)
[2023-03-22] MEDS: CHLORHEXIDINE GLUCONATE 15 ML MOUTHWASH MM SCH ×7 (00:12→23:34)
[2023-03-22] MEDS: BLOOD SUGAR DIAGNOSTIC 1 EACH STRIP VI SCH ×5 (00:13→23:38)
[2023-03-22] MEDS: INSULIN REGULAR, HUMAN 300 UNIT/3 ML VIAL SQ PRN ×4 (00:15→23:36)
[2023-03-22] MEDS: PROPOFOL 100 ML IV PRN ×2 (01:57→08:22)
[2023-03-22] MEDS: NOREPINEPHRINE BITARTRATE 32 MG in IV NORMAL SALINE 218 ML IV PRN ×3 (03:09→16:13)
[2023-03-22] MEDS: ACETAMINOPHEN 650 MG SUPP.RECT RC PRN (04:03)
[2023-03-22 05:05] LABS: BASOPHILS # (AUTO) 0.1 K/UL (0.0-0.2); BASOPHILS % (AUTO) 1.2 % (0.0-2.0); EOSINOPHILS # (AUTO) 0.3 K/uL (0.0-0.7); EOSINOPHILS % (AUTO) 2.6 % (0.0-7.0); HEMATOCRIT 31.7 % (36.7-47.1); HEMOGLOBIN 9.9 g/dL (12.5-16.3); LYMPHOCYTES # (AUTO) 1.6 K/uL (0.8-4.8); LYMPHOCYTES % (AUTO) 13.4 % (20.5-51.5); MEAN CORPUSCULAR HEMOGLOBIN 25.7 uug (23.8-33.4); MEAN CORPUSCULAR HGB CONC 31 g/dL (32.5-36.3); MEAN CORPUSCULAR VOLUME 82.1 fL (73.0-96.2); MONOCYTES # (AUTO) 1.2 K/uL (0.1-1.30); MONOCYTES % (AUTO) 9.9 % (0.0-11.0); NEUTROPHILS # (AUTO) 8.7 K/uL (1.8-8.9); NEUTROPHILS % (AUTO) 72.9 % (38.5-71.5); PLATELET COUNT (AUTO) 138 K/uL (152-348); RED BLOOD CELL COUNT(AUTO) 3.86 MIL/uL (4.06-5.63); RED CELL DISTRIBUTION WIDTH 16.5 % (12.1-16.2); WHITE BLOOD COUNT (AUTO) 11.9 K/uL (3.6-10.2)
[2023-03-22 05:34] LABS: DIFFERENTIAL COMMENT 1
[2023-03-22 05:38] LABS: ALANINE AMINOTRANSFERASE 47 U/L (16-63); ALBUMIN 1.6 g/dL (3.4-5.0); ALKALINE PHOSPHATASE 71 U/L (50-136); ASPARTATE AMINOTRANSFERASE 95 U/L (15-37); BILIRUBIN,TOTAL 0.7 mg/dL (0.2-1.0); CALCIUM 6.8 mg/dL (8.5-10.1); CARBON DIOXIDE 19 mmol/L (21-32); CHLORIDE 100 mmol/L (98-107); CREATININE 6.5 mg/dL (0.6-1.3); GLUCOSE 239 mg/dL (74-106); MAGNESIUM 2.5 mg/dL (1.8-2.4); POTASSIUM 5.1 mmol/L (3.5-5.1); SODIUM SERUM 137 mmol/L (136-145)
[2023-03-22 05:44] LABS: UREA NITROGEN, BLOOD 82 mg/dL (7-18)
[2023-03-22 05:45] LABS: PHOSPHOROUS 8.6 mg/dL (2.5-4.9)
[2023-03-22 07:30] LABS: ABG BASE EXCESS -6.7 mmol/L (-2.0-2.0); ABG HCO3 18.6 mmol/L (22.0-26.0); ABG PCO2 36.6 mmHg (35.0-48.0); ABG PH 7.323 (7.340-7.440); ABG PO2 137.1 mmHg (75.0-100.0); ABG TOTAL HEMOGLOBIN 16.1 G/dL (14.0-18.0); AaDO2 98.6 mmHg; COHb 0.3 % (0.0-3.9); MetHb 0.4 % (0.0-1.5); O2Hb 97.8 % (94.0-97.0); VT, ABG 600 mL
[2023-03-22] MEDS: CALCITRIOL 0.25 MCG CAPSULE PO SCH (09:00)
[2023-03-22] MEDS: HEPARIN SODIUM,PORCINE 5,000 UNITS/ML VIAL SQ SCH ×2 (09:00→20:51)
[2023-03-22] MEDS: PROTEIN SUPPLEMENT (PROSTAT) 30 ML LIQUID GT SCH ×2 (09:00→17:50)
[2023-03-22] MEDS: LIOTHYRONINE SODIUM 25 MCG TABLET PO SCH (09:00)
[2023-03-22] MEDS: FLUTICASONE/VILANTEROL 1 EACH BLST.W.DEV INH SCH (09:00)
[2023-03-22] MEDS ORDERED: EMPAGLIFLOZIN 25 MG TABLET PO SCH (09:00)
[2023-03-22] MEDS: CLOTRIMAZOLE 1% CREAM 30 GM TUBE TOP SCH ×2 (09:00→17:50)
[2023-03-22] MEDS: GABAPENTIN 300 MG CAPSULE PO SCH ×2 (14:02→20:56)
[2023-03-22] MEDS: FOLIC ACID 1 MG TABLET PO SCH (14:02)
[2023-03-22] MEDS: MULTIVITAMINS,THERAPEUTIC TABLET PO SCH (14:02)
[2023-03-22] MEDS: PANTOPRAZOLE SODIUM 40 MG VIAL IV SCH (14:03)
[2023-03-22] MEDS: METOCLOPRAMIDE HCL 10 MG/2 ML VIAL IV SCH ×2 (14:06→21:02)
[2023-03-22] MEDS: MIDAZOLAM HCL 50 MG in IV NORMAL SALINE 40 ML IV PRN ×2 (14:36→20:35)
[2023-03-22] MEDS: IV D5 1/2 NS 1000 ML 1,000 ML IV SCH (15:35)
[2023-03-22] MEDS: SIMVASTATIN 10 MG TABLET PO SCH (20:56)
[2023-03-22] MEDS: FLUCONAZOLE 200 MG/NS 100ML IV 100 MG in PREMIXED 1 EACH IV SCH (20:56)
[2023-03-22] MEDS: MEROPENEM 500 MG in IV NORMAL SALINE 50 ML IV SCH (22:30)
[2023-03-22] MEDS: ACETAMINOPHEN 325 MG TABLET PO PRN (23:37)
[2023-03-23] VITALS (58 sets, daily range): BP systolic 87–143; BP diastolic 46–75; TEMP 98–100.1; O2SAT 91–100
[2023-03-23] MEDS: CHLORHEXIDINE GLUCONATE 15 ML MOUTHWASH MM SCH ×6 (04:18→23:40)
[2023-03-23] MEDS: MIDAZOLAM HCL 50 MG in IV NORMAL SALINE 40 ML IV PRN ×2 (05:48→18:06)
[2023-03-23] MEDS: MINERAL OIL/PETROLAT OPHT OINT 3.5 GM TUBE EACHEYE SCH ×4 (05:49→23:41)
[2023-03-23] MEDS: BLOOD SUGAR DIAGNOSTIC 1 EACH STRIP VI SCH ×4 (05:50→23:42)
[2023-03-23] MEDS: TOBRAMYCIN/DEXAMETH OPHT OINT 3.5 GM TUBE EACHEYE SCH ×4 (05:50→23:40)
[2023-03-23] MEDS: METOCLOPRAMIDE HCL 10 MG/2 ML VIAL IV SCH ×3 (05:50→21:00)
[2023-03-23 05:58] LABS: ABG BASE EXCESS -6.6 mmol/L (-2.0-2.0); ABG HCO3 18.1 mmol/L (22.0-26.0); ABG PCO2 33.6 mmHg (35.0-48.0); ABG PO2 162.5 mmHg (75.0-100.0); ABG TOTAL HEMOGLOBIN 11.4 G/dL (14.0-18.0); COHb 0.3 % (0.0-3.9); MetHb 0.1 % (0.0-1.5); O2Hb 98.6 % (94.0-97.0); VT, ABG 600 mL
[2023-03-23] MEDS: LEVOTHYROXINE SODIUM 200 MCG TABLET PO SCH (07:52)
[2023-03-23] MEDS: SEVELAMER CARBONATE 800 MG POWD.PACK GT SCH ×3 (07:55→16:22)
[2023-03-23 08:06] LABS: HEPATITIS B SURFACE AB, QUAL Non Reactive (.); HEPATITIS B SURFACE AG Negative (Negative)
[2023-03-23 08:06] LABS: HEPATITIS B SURFACE AB, QUAL Non Reactive (.); HEPATITIS B SURFACE AG Negative (Negative)
[2023-03-23] MEDS: MULTIVITAMINS,THERAPEUTIC TABLET PO SCH (08:08)
[2023-03-23] MEDS: PANTOPRAZOLE SODIUM 40 MG VIAL IV SCH (08:08)
[2023-03-23] MEDS: FOLIC ACID 1 MG TABLET PO SCH (08:09)
[2023-03-23] MEDS: GABAPENTIN 300 MG CAPSULE PO SCH ×2 (08:09→20:55)
[2023-03-23] MEDS: HEPARIN SODIUM,PORCINE 5,000 UNITS/ML VIAL SQ SCH ×2 (08:11→20:56)
[2023-03-23] MEDS: PROTEIN SUPPLEMENT (PROSTAT) 30 ML LIQUID GT SCH ×2 (08:13→16:20)
[2023-03-23] MEDS: FLUTICASONE/VILANTEROL 1 EACH BLST.W.DEV INH SCH (08:16)
[2023-03-23] MEDS: LIOTHYRONINE SODIUM 25 MCG TABLET PO SCH (08:20)
[2023-03-23] MEDS: CALCITRIOL 0.25 MCG CAPSULE PO SCH (08:21)
[2023-03-23] MEDS: CLOTRIMAZOLE 1% CREAM 30 GM TUBE TOP SCH ×2 (08:23→16:21)
[2023-03-23] MEDS: NOREPINEPHRINE BITARTRATE 32 MG in IV NORMAL SALINE 218 ML IV PRN ×2 (09:12→23:21)
[2023-03-23] MEDS: INSULIN REGULAR, HUMAN 300 UNIT/3 ML VIAL SQ PRN ×2 (11:08→17:12)
[2023-03-23] MEDS: NEPRO 1000 ML GT PRN (11:12)
[2023-03-23] MEDS: FLUCONAZOLE 200 MG/NS 100ML IV 100 MG in PREMIXED 1 EACH IV SCH (20:55)
[2023-03-23] MEDS: SIMVASTATIN 10 MG TABLET PO SCH (20:55)
[2023-03-23] MEDS: MEROPENEM 500 MG in IV NORMAL SALINE 50 ML IV SCH (22:15)
[2023-03-23] MEDS: ACETAMINOPHEN 325 MG TABLET PO PRN (22:37)
[2023-03-24] VITALS (87 sets, daily range): BP systolic 74–132; BP diastolic 48–74; TEMP 99.3–103.1; O2SAT 90–99
[2023-03-24] MEDS: BLOOD SUGAR DIAGNOSTIC 1 EACH STRIP VI SCH ×4 (06:00→23:56)
[2023-03-24] MEDS: LEVOTHYROXINE SODIUM 200 MCG TABLET PO SCH (06:03)
[2023-03-24] MEDS: ACETAMINOPHEN 325 MG TABLET PO PRN ×2 (06:03→20:52)
[2023-03-24] MEDS: CHLORHEXIDINE GLUCONATE 15 ML MOUTHWASH MM SCH ×6 (06:04→23:55)
[2023-03-24] MEDS: METOCLOPRAMIDE HCL 10 MG/2 ML VIAL IV SCH ×3 (06:04→22:28)
[2023-03-24] MEDS: MIDAZOLAM HCL 50 MG in IV NORMAL SALINE 40 ML IV PRN (06:05)
[2023-03-24] MEDS: MINERAL OIL/PETROLAT OPHT OINT 3.5 GM TUBE EACHEYE SCH ×4 (06:06→23:54)
[2023-03-24] MEDS: TOBRAMYCIN/DEXAMETH OPHT OINT 3.5 GM TUBE EACHEYE SCH ×4 (06:06→23:54)
[2023-03-24] MEDS: FOLIC ACID 1 MG TABLET PO SCH (08:34)
[2023-03-24] MEDS: PANTOPRAZOLE SODIUM 40 MG VIAL IV SCH (08:34)
[2023-03-24] MEDS: GABAPENTIN 300 MG CAPSULE PO SCH ×2 (08:34→20:52)
[2023-03-24] MEDS: FLUTICASONE/VILANTEROL 1 EACH BLST.W.DEV INH SCH (08:34)
[2023-03-24] MEDS: HEPARIN SODIUM,PORCINE 5,000 UNITS/ML VIAL SQ SCH (08:34)
[2023-03-24] MEDS: PROTEIN SUPPLEMENT (PROSTAT) 30 ML LIQUID GT SCH ×2 (08:35→16:47)
[2023-03-24] MEDS: LIOTHYRONINE SODIUM 25 MCG TABLET PO SCH (08:37)
[2023-03-24] MEDS: MULTIVITAMINS,THERAPEUTIC TABLET PO SCH (08:38)
[2023-03-24] MEDS: CALCITRIOL 0.25 MCG CAPSULE PO SCH (08:39)
[2023-03-24] MEDS: CLOTRIMAZOLE 1% CREAM 30 GM TUBE TOP SCH ×2 (08:39→16:47)
[2023-03-24 08:42] LABS: BASOPHILS # (AUTO) 0.1 K/UL (0.0-0.2); EOSINOPHILS # (AUTO) 0.3 K/uL (0.0-0.7); EOSINOPHILS % (AUTO) 2.3 % (0.0-7.0); HEMATOCRIT 29.6 % (36.7-47.1); HEMOGLOBIN 9.3 g/dL (12.5-16.3); LYMPHOCYTES # (AUTO) 1.1 K/uL (0.8-4.8); LYMPHOCYTES % (AUTO) 9.9 % (20.5-51.5); MEAN CORPUSCULAR HEMOGLOBIN 25.8 uug (23.8-33.4); MEAN CORPUSCULAR HGB CONC 32 g/dL (32.5-36.3); MEAN CORPUSCULAR VOLUME 81.9 fL (73.0-96.2); MONOCYTES # (AUTO) 1.3 K/uL (0.1-1.30); MONOCYTES % (AUTO) 11.8 % (0.0-11.0); NEUTROPHILS # (AUTO) 8.5 K/uL (1.8-8.9); PLATELET COUNT (AUTO) 84 K/uL (152-348); RED BLOOD CELL COUNT(AUTO) 3.61 MIL/uL (4.06-5.63); RED CELL DISTRIBUTION WIDTH 16.2 % (12.1-16.2); WHITE BLOOD COUNT (AUTO) 11.3 K/uL (3.6-10.2)
[2023-03-24 08:46] LABS: DIFFERENTIAL COMMENT 1
[2023-03-24] MEDS: SEVELAMER CARBONATE 800 MG POWD.PACK GT SCH ×3 (09:29→16:48)
[2023-03-24 09:33] LABS: ALANINE AMINOTRANSFERASE 56 U/L (16-63); ALBUMIN 1.7 g/dL (3.4-5.0); ALKALINE PHOSPHATASE 56 U/L (50-136); ASPARTATE AMINOTRANSFERASE 136 U/L (15-37); BILIRUBIN,TOTAL 0.8 mg/dL (0.2-1.0); CALCIUM 6.9 mg/dL (8.5-10.1); CARBON DIOXIDE 24 mmol/L (21-32); CHLORIDE 99 mmol/L (98-107); CREATININE 6.3 mg/dL (0.6-1.3); GLUCOSE 186 mg/dL (74-106); SODIUM SERUM 140 mmol/L (136-145); TOTAL PROTEIN, SERUM 6.8 g/dL (6.4-8.2); UREA NITROGEN, BLOOD 70 mg/dL (7-18)
[2023-03-24] MEDS: INSULIN REGULAR, HUMAN 300 UNIT/3 ML VIAL SQ PRN ×3 (11:47→23:59)
[2023-03-24] MEDS: FLUCONAZOLE 200 MG/NS 100ML IV 100 MG in PREMIXED 1 EACH IV SCH (20:31)
[2023-03-24] MEDS: SIMVASTATIN 10 MG TABLET PO SCH (20:52)
[2023-03-24] MEDS: MEROPENEM 500 MG in IV NORMAL SALINE 50 ML IV SCH (22:32)
[2023-03-24] MEDS: NOREPINEPHRINE BITARTRATE 32 MG in IV NORMAL SALINE 218 ML IV PRN (23:00)
[2023-03-25] VITALS (94 sets, daily range): BP systolic 69–120; BP diastolic 38–72; TEMP 98–101.2; O2SAT 93–100
[2023-03-25] MEDS: CHLORHEXIDINE GLUCONATE 15 ML MOUTHWASH MM SCH ×6 (04:04→23:50)
[2023-03-25] MEDS: ACETAMINOPHEN 325 MG TABLET PO PRN ×3 (04:22→19:55)
[2023-03-25 05:23] LABS: BASOPHILS # (AUTO) 0.1 K/UL (0.0-0.2); BASOPHILS % (AUTO) 1.2 % (0.0-2.0); EOSINOPHILS # (AUTO) 0.6 K/uL (0.0-0.7); EOSINOPHILS % (AUTO) 5.2 % (0.0-7.0); HEMATOCRIT 32.3 % (36.7-47.1); HEMOGLOBIN 10.2 g/dL (12.5-16.3); LYMPHOCYTES # (AUTO) 1.1 K/uL (0.8-4.8); LYMPHOCYTES % (AUTO) 9.8 % (20.5-51.5); MEAN CORPUSCULAR HEMOGLOBIN 25.9 uug (23.8-33.4); MEAN CORPUSCULAR HGB CONC 32 g/dL (32.5-36.3); MONOCYTES # (AUTO) 1.3 K/uL (0.1-1.30); MONOCYTES % (AUTO) 11.9 % (0.0-11.0); NEUTROPHILS # (AUTO) 8.1 K/uL (1.8-8.9); NEUTROPHILS % (AUTO) 71.9 % (38.5-71.5); PLATELET COUNT (AUTO) 100 K/uL (152-348); RED BLOOD CELL COUNT(AUTO) 3.94 MIL/uL (4.06-5.63); RED CELL DISTRIBUTION WIDTH 16.3 % (12.1-16.2); WHITE BLOOD COUNT (AUTO) 11.3 K/uL (3.6-10.2)
[2023-03-25 05:34] LABS: DIFFERENTIAL COMMENT 1
[2023-03-25 05:37] LABS: CALCIUM 7.1 mg/dL (8.5-10.1); CARBON DIOXIDE 22 mmol/L (21-32); CHLORIDE 97 mmol/L (98-107); GLUCOSE 217 mg/dL (74-106); POTASSIUM 4.6 mmol/L (3.5-5.1); SODIUM SERUM 136 mmol/L (136-145)
[2023-03-25] MEDS: METOCLOPRAMIDE HCL 10 MG/2 ML VIAL IV SCH ×3 (05:38→21:27)
[2023-03-25] MEDS: MINERAL OIL/PETROLAT OPHT OINT 3.5 GM TUBE EACHEYE SCH ×4 (05:39→23:49)
[2023-03-25] MEDS: TOBRAMYCIN/DEXAMETH OPHT OINT 3.5 GM TUBE EACHEYE SCH ×2 (05:39→11:35)
[2023-03-25 05:45] LABS: CREATININE 7.8 mg/dL (0.6-1.3); UREA NITROGEN, BLOOD 101 mg/dL (7-18)
[2023-03-25] MEDS: BLOOD SUGAR DIAGNOSTIC 1 EACH STRIP VI SCH ×4 (06:12→23:56)
[2023-03-25] MEDS: INSULIN REGULAR, HUMAN 300 UNIT/3 ML VIAL SQ PRN ×4 (06:17→23:59)
[2023-03-25] MEDS: LEVOTHYROXINE SODIUM 200 MCG TABLET PO SCH (06:31)
[2023-03-25] MEDS: SEVELAMER CARBONATE 800 MG POWD.PACK GT SCH ×3 (07:47→15:58)
[2023-03-25] MEDS: PANTOPRAZOLE SODIUM 40 MG VIAL IV SCH (08:00)
[2023-03-25] MEDS: FOLIC ACID 1 MG TABLET PO SCH (08:00)
[2023-03-25] MEDS: GABAPENTIN 300 MG CAPSULE PO SCH ×2 (08:00→20:04)
[2023-03-25] MEDS: MULTIVITAMINS,THERAPEUTIC TABLET PO SCH (08:00)
[2023-03-25] MEDS: PROTEIN SUPPLEMENT (PROSTAT) 30 ML LIQUID GT SCH ×2 (08:00→17:07)
[2023-03-25] MEDS: CALCITRIOL 0.25 MCG CAPSULE PO SCH (08:01)
[2023-03-25] MEDS: LIOTHYRONINE SODIUM 25 MCG TABLET PO SCH (08:04)
[2023-03-25] MEDS: FLUTICASONE/VILANTEROL 1 EACH BLST.W.DEV INH SCH (08:05)
[2023-03-25] MEDS: CLOTRIMAZOLE 1% CREAM 30 GM TUBE TOP SCH (08:07)
[2023-03-25] MEDS: NEPRO 1000 ML GT PRN (08:58)
[2023-03-25] MEDS: ASPIRIN 81 MG TAB.CHEW GT SCH (09:57)
[2023-03-25] MEDS ORDERED: APIXABAN 2.5 MG TABLET GT SCH (10:00)
[2023-03-25 10:10] LABS: HEPATITIS B CORE AB, IgM Negative (Negative); HEPATITIS B CORE AB, TOTAL Negative (Negative); HEPATITIS Be ANTIGEN Negative (Negative); HEPATITIS C VIRUS ANTIBODY Non Reactive (Non Reactive)
[2023-03-25] MEDS: APIXABAN 2.5 MG TABLET PO SCH ×2 (11:52→20:08)
[2023-03-25] MEDS: SIMVASTATIN 10 MG TABLET PO SCH (20:04)
[2023-03-25] MEDS ORDERED: VANCOMYCIN IV 2,000 MG in IV DEXTROSE 5% 500 ML IV ONE (21:15)
[2023-03-25] MEDS: MEROPENEM 500 MG in IV NORMAL SALINE 50 ML IV SCH (23:48)
[2023-03-26] VITALS (95 sets, daily range): BP systolic 79–192; BP diastolic 44–86; TEMP 98.8–102.4; O2SAT 20–99
[2023-03-26] MEDS: NOREPINEPHRINE BITARTRATE 32 MG in IV NORMAL SALINE 218 ML IV PRN ×2 (01:06→22:19)
[2023-03-26] MEDS: CHLORHEXIDINE GLUCONATE 15 ML MOUTHWASH MM SCH ×5 (04:31→22:19)
[2023-03-26] MEDS: BLOOD SUGAR DIAGNOSTIC 1 EACH STRIP VI SCH ×3 (05:12→18:31)
[2023-03-26] MEDS: MINERAL OIL/PETROLAT OPHT OINT 3.5 GM TUBE EACHEYE SCH ×3 (05:12→18:10)
[2023-03-26] MEDS: METOCLOPRAMIDE HCL 10 MG/2 ML VIAL IV SCH ×3 (05:13→22:23)
[2023-03-26] MEDS: ACETAMINOPHEN 325 MG TABLET PO PRN ×2 (05:25→18:25)
[2023-03-26] MEDS: INSULIN REGULAR, HUMAN 300 UNIT/3 ML VIAL SQ PRN ×3 (05:29→18:29)
[2023-03-26] MEDS: LEVOTHYROXINE SODIUM 200 MCG TABLET PO SCH (06:04)
[2023-03-26] MEDS: LIOTHYRONINE SODIUM 25 MCG TABLET PO SCH (09:21)
[2023-03-26] MEDS: SEVELAMER CARBONATE 800 MG POWD.PACK GT SCH ×3 (09:21→18:09)
[2023-03-26] MEDS: CALCITRIOL 0.25 MCG CAPSULE PO SCH (09:22)
[2023-03-26] MEDS: MULTIVITAMINS,THERAPEUTIC TABLET PO SCH (09:25)
[2023-03-26] MEDS: ASPIRIN 81 MG TAB.CHEW GT SCH (09:26)
[2023-03-26] MEDS: GABAPENTIN 300 MG CAPSULE PO SCH ×2 (09:26→22:20)
[2023-03-26] MEDS: FOLIC ACID 1 MG TABLET PO SCH (09:26)
[2023-03-26] MEDS: PANTOPRAZOLE SODIUM 40 MG VIAL IV SCH (09:27)
[2023-03-26] MEDS: APIXABAN 2.5 MG TABLET PO SCH ×2 (09:27→22:21)
[2023-03-26] MEDS: PROTEIN SUPPLEMENT (PROSTAT) 30 ML LIQUID GT SCH ×2 (09:28→18:10)
[2023-03-26] MEDS: FLUTICASONE/VILANTEROL 1 EACH BLST.W.DEV INH SCH (09:31)
[2023-03-26] MEDS: NEPRO 1000 ML GT PRN (21:22)
[2023-03-26] MEDS: SIMVASTATIN 10 MG TABLET PO SCH (22:20)
[2023-03-26] MEDS: METRONIDAZOLE 500 MG TABLET PO SCH (22:23)
[2023-03-26] MEDS: MEROPENEM 500 MG in IV NORMAL SALINE 50 ML IV SCH (22:24)
[2023-03-27] VITALS (81 sets, daily range): BP systolic 55–159; BP diastolic 25–87; TEMP 98.4–104.5; O2SAT 92–98
[2023-03-27] MEDS: CHLORHEXIDINE GLUCONATE 15 ML MOUTHWASH MM SCH ×7 (02:41→23:46)
[2023-03-27] MEDS: ACETAMINOPHEN 325 MG TABLET PO PRN ×3 (02:41→20:14)
[2023-03-27] MEDS: MINERAL OIL/PETROLAT OPHT OINT 3.5 GM TUBE EACHEYE SCH ×5 (02:42→23:46)
[2023-03-27] MEDS: INSULIN REGULAR, HUMAN 300 UNIT/3 ML VIAL SQ PRN ×5 (02:59→23:55)
[2023-03-27 05:23] LABS: BASOPHILS % (AUTO) 0.4 % (0.0-2.0); EOSINOPHILS # (AUTO) 0.6 K/uL (0.0-0.7); EOSINOPHILS % (AUTO) 5.3 % (0.0-7.0); HEMATOCRIT 26.7 % (36.7-47.1); HEMOGLOBIN 8.5 g/dL (12.5-16.3); LYMPHOCYTES % (AUTO) 9.4 % (20.5-51.5); MEAN CORPUSCULAR HEMOGLOBIN 26.3 uug (23.8-33.4); MEAN CORPUSCULAR HGB CONC 32 g/dL (32.5-36.3); MEAN CORPUSCULAR VOLUME 82.4 fL (73.0-96.2); MONOCYTES # (AUTO) 1.1 K/uL (0.1-1.30); MONOCYTES % (AUTO) 10.2 % (0.0-11.0); NEUTROPHILS # (AUTO) 7.7 K/uL (1.8-8.9); NEUTROPHILS % (AUTO) 74.7 % (38.5-71.5); PLATELET COUNT (AUTO) 115 K/uL (152-348); RED BLOOD CELL COUNT(AUTO) 3.24 MIL/uL (4.06-5.63); RED CELL DISTRIBUTION WIDTH 15.9 % (12.1-16.2); WHITE BLOOD COUNT (AUTO) 10.3 K/uL (3.6-10.2)
[2023-03-27 05:29] LABS: CARBON DIOXIDE 26 mmol/L (21-32); CHLORIDE 97 mmol/L (98-107); CREATININE 6.2 mg/dL (0.6-1.3); GLUCOSE 253 mg/dL (74-106); MAGNESIUM 2.3 mg/dL (1.8-2.4); PHOSPHOROUS 5.2 mg/dL (2.5-4.9); POTASSIUM 3.6 mmol/L (3.5-5.1); SODIUM SERUM 135 mmol/L (136-145); UREA NITROGEN, BLOOD 79 mg/dL (7-18)
[2023-03-27 05:32] LABS: DIFFERENTIAL COMMENT 1
[2023-03-27] MEDS: METOCLOPRAMIDE HCL 10 MG/2 ML VIAL IV SCH ×3 (06:21→20:54)
[2023-03-27] MEDS: METRONIDAZOLE 500 MG TABLET PO SCH ×3 (06:21→20:54)
[2023-03-27] MEDS: BLOOD SUGAR DIAGNOSTIC 1 EACH STRIP VI SCH ×6 (06:22→23:52)
[2023-03-27 06:27] LABS: ABG BASE EXCESS -2.4 mmol/L (-2.0-2.0); ABG HCO3 22.1 mmol/L (22.0-26.0); ABG PCO2 36.9 mmHg (35.0-48.0); ABG PH 7.395 (7.340-7.440); ABG PO2 112.7 mmHg (75.0-100.0); ABG SITE Other; AaDO2 98.1 mmHg; COHb 0.3 % (0.0-3.9); MetHb 0.1 % (0.0-1.5); O2Hb 97.5 % (94.0-97.0); VT, ABG 600 mL
[2023-03-27] MEDS: NOREPINEPHRINE BITARTRATE 32 MG in IV NORMAL SALINE 218 ML IV PRN ×3 (07:13→19:04)
[2023-03-27] MEDS: LEVOTHYROXINE SODIUM 200 MCG TABLET PO SCH (07:41)
[2023-03-27] MEDS: SEVELAMER CARBONATE 800 MG POWD.PACK GT SCH ×3 (07:41→15:50)
[2023-03-27] MEDS: PROTEIN SUPPLEMENT (PROSTAT) 30 ML LIQUID GT SCH ×2 (08:01→16:40)
[2023-03-27] MEDS: MULTIVITAMINS,THERAPEUTIC TABLET PO SCH (08:03)
[2023-03-27] MEDS: ASPIRIN 81 MG TAB.CHEW GT SCH (08:03)
[2023-03-27] MEDS: PANTOPRAZOLE SODIUM 40 MG VIAL IV SCH (08:03)
[2023-03-27] MEDS: FOLIC ACID 1 MG TABLET PO SCH (08:03)
[2023-03-27] MEDS: GABAPENTIN 300 MG CAPSULE PO SCH (08:03)
[2023-03-27] MEDS: APIXABAN 2.5 MG TABLET PO SCH ×2 (08:04→20:58)
[2023-03-27] MEDS: CALCITRIOL 0.25 MCG CAPSULE PO SCH (08:04)
[2023-03-27] MEDS: LIOTHYRONINE SODIUM 25 MCG TABLET PO SCH (08:05)
[2023-03-27] MEDS: FLUTICASONE/VILANTEROL 1 EACH BLST.W.DEV INH SCH (08:06)
[2023-03-27] MEDS ORDERED: MODAFINIL 100 MG TABLET PO SCH (09:00)
[2023-03-27] MEDS: NEPRO 1000 ML GT PRN (10:39)
[2023-03-27] MEDS ORDERED: DEXTROSE 50% 50 ML DISP.SYRIN IV PRN (12:00)
[2023-03-27] MEDS: SIMVASTATIN 10 MG TABLET PO SCH (20:54)
[2023-03-27] MEDS: MEROPENEM 500 MG in IV NORMAL SALINE 50 ML IV SCH (20:59)
[2023-03-28] MEDS ORDERED: MAGNESIUM SULFATE 1 GM/2 ML VIAL ONE
[2023-03-28] MEDS ORDERED: EPINEPHRINE 1:10,000 1 MG/10 ML DISP.SYRIN ONE
[2023-03-28] MEDS ORDERED: CALCIUM CHLORIDE 1 GM/10 ML DISP.SYRIN IVP ONE
[2023-03-28 00:01] VITALS: BP 99/52; TEMP 98.5; O2SAT 94
[2023-03-28 01:00] VITALS: BP 93/57; O2SAT 92
[2023-03-28 02:00] VITALS: BP 122/65; O2SAT 94
[2023-03-28 03:00] VITALS: BP 106/55; O2SAT 94
[2023-03-28] MEDS: NOREPINEPHRINE BITARTRATE 32 MG in IV NORMAL SALINE 218 ML IV PRN (03:27)
[2023-03-28] MEDS: CHLORHEXIDINE GLUCONATE 15 ML MOUTHWASH MM SCH (03:34)
[2023-03-28 04:00] VITALS: BP 92/53; TEMP 106.9; O2SAT 94
[2023-03-28] MEDS: ACETAMINOPHEN 325 MG TABLET PO PRN (04:02)
[2023-03-28 05:12] LABS: BASOPHILS # (AUTO) 0.1 K/UL (0.0-0.2); BASOPHILS % (AUTO) 0.9 % (0.0-2.0); EOSINOPHILS % (AUTO) 0.1 % (0.0-7.0); HEMATOCRIT 32.3 % (36.7-47.1); LYMPHOCYTES # (AUTO) 0.6 K/uL (0.8-4.8); LYMPHOCYTES % (AUTO) 6.2 % (20.5-51.5); MEAN CORPUSCULAR HEMOGLOBIN 26.1 uug (23.8-33.4); MEAN CORPUSCULAR HGB CONC 31 g/dL (32.5-36.3); MEAN CORPUSCULAR VOLUME 84.2 fL (73.0-96.2); MONOCYTES # (AUTO) 0.9 K/uL (0.1-1.30); MONOCYTES % (AUTO) 9.7 % (0.0-11.0); NEUTROPHILS % (AUTO) 83.1 % (38.5-71.5); PLATELET COUNT (AUTO) 135 K/uL (152-348); RED BLOOD CELL COUNT(AUTO) 3.83 MIL/uL (4.06-5.63); RED CELL DISTRIBUTION WIDTH 16.9 % (12.1-16.2); WHITE BLOOD COUNT (AUTO) 9.6 K/uL (3.6-10.2)
[2023-03-28 05:28] LABS: CARBON DIOXIDE 20 mmol/L (21-32); CHLORIDE 95 mmol/L (98-107); MAGNESIUM 2.2 mg/dL (1.8-2.4); PHOSPHOROUS 6.4 mg/dL (2.5-4.9); POTASSIUM 5.3 mmol/L (3.5-5.1); SODIUM SERUM 133 mmol/L (136-145)
[2023-03-28 05:53] LABS: DIFFERENTIAL COMMENT 1
[2023-03-28 05:59] LABS: CREATININE 8.7 mg/dL (0.6-1.3); GLUCOSE 408 mg/dL (74-106); UREA NITROGEN, BLOOD 119 mg/dL (7-18)
[2023-03-28] MEDS ORDERED: NOREPINEPHRINE BITARTRATE 4 MG/4 ML VIAL IV ONE (06:39)
[2023-03-28] MEDS ORDERED: SODIUM BICARBONATE 8.4% 50 MEQ/50 ML DISP.SYRIN IV ONE ×2 (07:12)
[2023-03-28] MEDS ORDERED: VANCOMYCIN IV 500 MG in IV DEXTROSE 5% 100 ML IV PRN (12:00)
== END 2023-03-28 12:30 | DRG 64 ==
LOC: ER 14:55 → CCU 19:07 → TELE3 02-27 01:33 → CCU 02-28 06:59
PROVIDERS: ADMIT Nurse Practitioner Acute Care; ATTEND Nurse Practitioner Acute Care
PROC: 5A09457 Assistance with Respiratory Ventilation, 24-96 Consecutive Hours, Continuous Positive Airway Pressure (ICD-10-PCS; principal; 2023-02-26)
PROC: 02HV33Z Insertion of Infusion Device into Superior Vena Cava, Percutaneous Approach (ICD-10-PCS; 2023-03-02)
PROC: 0DH63UZ Insertion of Feeding Device into Stomach, Percutaneous Approach (ICD-10-PCS; 2023-03-16)
PROC: 5A1955Z Respiratory Ventilation, Greater than 96 Consecutive Hours (ICD-10-PCS; 2023-03-18)
PROC: 0BH17EZ Insertion of Endotracheal Airway into Trachea, Via Natural or Artificial Opening (ICD-10-PCS; 2023-03-18)
PROC: 02HV33Z Insertion of Infusion Device into Superior Vena Cava, Percutaneous Approach (ICD-10-PCS; 2023-03-20)
PROC: 5A1D70Z Performance of Urinary Filtration, Intermittent, Less than 6 Hours Per Day (ICD-10-PCS; 2023-03-20)
PROC: 5A12012 Performance of Cardiac Output, Single, Manual (ICD-10-PCS; 2023-03-28)
DX: I63.89 Other cerebral infarction (principal); A41.9 Sepsis, unspecified organism; J69.0 Pneumonitis due to inhalation of food and vomit; J96.01 Acute respiratory failure with hypoxia; N17.0 Acute kidney failure with tubular necrosis; J96.02 Acute respiratory failure with hypercapnia; R65.21 Severe sepsis with septic shock; G81.94 Hemiplegia, unspecified affecting left nondominant side; Z68.43 Body mass index [BMI] 50.0-59.9, adult; B37.49 Other urogenital candidiasis; E87.0 Hyperosmolality and hypernatremia; E66.2 Morbid (severe) obesity with alveolar hypoventilation; I13.0 Hypertensive heart and chronic kidney disease with heart failure and stage 1 through stage 4 chronic kidney disease, or unspecified chronic kidney disease; R09.2 Respiratory arrest; R29.810 Facial weakness; G83.24 Monoplegia of upper limb affecting left nondominant side; R29.707 NIHSS score 7; R13.10 Dysphagia, unspecified; R47.1 Dysarthria and anarthria; D75.839 Thrombocytosis, unspecified; E05.00 Thyrotoxicosis with diffuse goiter without thyrotoxic crisis or storm; E83.39 Other disorders of phosphorus metabolism; G47.33 Obstructive sleep apnea (adult) (pediatric); I48.0 Paroxysmal atrial fibrillation; S30.0XXA Contusion of lower back and pelvis, initial encounter; X58.XXXA Exposure to other specified factors, initial encounter; Y92.89 Other specified places as the place of occurrence of the external cause; I87.8 Other specified disorders of veins; K29.70 Gastritis, unspecified, without bleeding; E78.5 Hyperlipidemia, unspecified; I25.10 Atherosclerotic heart disease of native coronary artery without angina pectoris; E87.5 Hyperkalemia; E83.41 Hypermagnesemia; M48.02 Spinal stenosis, cervical region; I44.0 Atrioventricular block, first degree; M47.812 Spondylosis without myelopathy or radiculopathy, cervical region; M89.8X9 Other specified disorders of bone, unspecified site; Z79.01 Long term (current) use of anticoagulants; I50.9 Heart failure, unspecified; Z79.84 Long term (current) use of oral hypoglycemic drugs; Z79.890 Hormone replacement therapy; Z79.899 Other long term (current) drug therapy; Z88.0 Allergy status to penicillin
CPT/HCPCS: 36415; 36600; 43761; 70030-TC; 70450; 70490; 70496; 71045; 74018; 82803; 83605; 83735; 83970; 84100; 84155; 84165; 84300; 84443; 84484; 85025; 85610; 85730; 86704; 86705; 86706; 86803; 87040; 87340; 87350; 90937; 92950; 93307; 94002; 94003; 94660; 94760; A4606; A4663; A6209; C9113; G0378; J0171; J0330; J0692; J0696; J1450; J1644; J1650; J1815; J2185; J2250; J2270; J2405; J2543; J2765; J3370; J3475; J3490; J3590; J7040; J7050; J7060; J7070; J8499; Q0163; Q9967